=== PATIENT | male | born 1940 | race Caucasian/White ===

== ENCOUNTER 2018-11-09 13:00 | Inpatient (IN) ==
[2018-11-09] MEDS ORDERED: MIDAZOLAM HCL 1 MG/ML 2ML VIAL ONE (13:02)
[2018-11-09] MEDS ORDERED: NiCARDipine HCL INJ 2.5 MG/ML 10 ML AMP ONE (13:02)
[2018-11-09] MEDS ORDERED: fentaNYL citrate 100 MCG/2 ML VIAL ONE (13:02)
[2018-11-09] MEDS ORDERED: HEPARIN (PORCINE) 1000 UNIT/ML 10 ML (CATH LAB USE ONLY) ONE (13:02)
[2018-11-09] MEDS ORDERED: TICAGRELOR 90 MG TAB PO STA (13:05)
[2018-11-09] MEDS ORDERED: NITROGLYCERIN/D5W 100MCG/ML 20ML SYR ONE (13:05)
[2018-11-09] MEDS ORDERED: LIDOCAINE HCL 1% 20 ML VIAL ONE (13:06)
[2018-11-09] MEDS ORDERED: SODIUM CHLORIDE 0.9% 1000ML 1,000 ML IV STA (13:09)
[2018-11-09] MEDS ORDERED: fentaNYL citrate 100 MCG/2 ML VIAL IV STA (13:09)
--- NOTE | 2018-11-09 13:14 | Pre Anesthesia Assessment ---
Date of Service November 09, 2018 Pre Sedation Assessment Vital Signs Temp Pulse Resp BP Pulse Ox 11/09/18 13:02 36.4 C L 62 15 132/65 99 Cardiovascular RRR, no murmur, no edema Respiratory normal respiratory effort, lungs clear to auscultation Pre-Sedation Airway Assessment Smoking Status: Former smoker Procedure Planning Contraindications for Sedation: none Current Medications Reviewed: Yes Notes The planned sedation has been discussed with the patient. Informed Consent was obtained. I have identified the patient, determined the appropriateness of sedation and have assessed the patient immediately prior to the procedure. All medicine(s) and interventions are by my order.
[2018-11-09] MEDS ORDERED: HEPARIN SOD (PORCINE) 1000 UNIT/ML 10 ML VIAL IV ONE (13:15)
[2018-11-09 13:20] LABS: Basophils # (auto) 0.01 K/uL (0-0.2); Basophils % (auto) 0.1 %; Eosinophils # (auto) 0.13 K/uL (0-0.5); Eosinophils % (auto) 1.3 %; Hematocrit (blood only) 39.4 % (42-52); Hemoglobin 13.4 g/dL (14.0-18.0); Immature Granulocytes # (auto) 0.02 K/uL (0.00-0.02); Immature Granulocytes % (auto) 0.2 %; Lymphocytes # (auto) 1.16 K/uL (1.2-3.4); Lymphocytes % (auto) 11.7 %; Mean Corpuscular Volume 94.5 fL (80-100); Mean Platelet Volume 9.5 fL (7.4-10.4); Monocytes # (auto) 0.94 K/uL (0.11-0.59); Monocytes % (auto) 9.5 %; Neutrophils # (auto) 7.67 K/uL (1.4-6.5); Neutrophils % (auto) 77.2 %; Platelet Count 174 K/uL (130-400); RDW Coefficient of Variation 13.5 % (11.5-14.5); RDW Standard Deviation 46.8 fL (36.4-46.3); Red Blood Count 4.17 M/uL (4.7-6.1); White Blood Count 9.93 K/uL (4.8-10.8)
--- NOTE | 2018-11-09 13:21 | Cardiology Consultation ---
Date of Consultation November 09, 2018 Assessment & Plan (1) ST elevation myocardial infarction (STEMI) of inferior wall: 2. COPD 3. Transient hypotension with nitrates Patient with active ongoing chest pain and EKG showing inferior ST elevations. Plan to treat as acute NC and proceed emergently to cardiac catheterization lab. Discussed risks, benefits, alternatives of procedure with patient and he is willing to proceed. Patient to receive heparin, ticagrelor in the ED. Procedure to be performed via right radial artery. Further conditions pending findings of catheterization. History of Present Illness Reason for Consultation: Heart alert History of Present Illness Mr. Freire is a 78-year-old man with a history of COPD, GERD brought to the ED in the setting of acute onset chest pain. Patient was painting when developed acute substernal chest pain. No associated nausea, pain nonradiating. No prior similar symptoms. Pain began approximately 2 hours prior to presentation. EMS contacted and EKG in route showed inferior ST elevations and heart alert activated from the field. In route received nitroglycerin, IV fluids, fentanyl. On arrival to the ED ongoing 4-10 chest pain. EKG again showed inferior ST elevations with heart rates in the 60s. Hemodynamically stable. No other prior cardiac history. Family history: Mother with NC in her 80s Social history: and lives with . 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 Quit smoking 5 years ago. Allergies: None Allergies Allergy/AdvReac Type Severity Reaction Status Date / Time No Known Allergies Allergy Unverified 07/24/11 11:54 Home Medications Home Medications Medication Instructions Recorded Confirmed Type Fluticasone Prop/Salmeterol 1 puff INHALATION BID #0 04/10/11 History (Advair Diskus 250/50 Mcg *) Albuterol (Proair Hfa) 2 puff INHALATION QID PRN #0 10/12/15 History Amoxicillin & Pot Clavulanate 2 tab PO TID #14 tab 10/12/15 History (Augmentin 875-125 mg) MOMETASONE FUROATE-FORMOTEROL 2 puff INHALATION DAILY #0 g 10/12/15 History (DULERA 200/5 MCG) Pantoprazole (Protonix) 40 mg PO DAILY #30 tab 10/12/15 History Patient History Social History Feels Safe at Home: Yes Smoking Status: Former smoker Preferred Language: Kenyan Review of Systems Not obtained in the setting of emergent situation Physical Exam 2 Vital Signs (Past 24 Hours): Last Vital Signs Temp 36.4 C L 11/09/18 13:02 Pulse 62 11/09/18 13:02 Resp 15 11/09/18 13:02 BP 132/65 11/09/18 13:02 Pulse Ox 99 11/09/18 13:02 Physical Exam: General: Comfortable, no acute distress Eyes: Sclerae anicteric, extraocular movements intact HENT: Oropharynx clear mucous membranes moist Lungs: Clear to auscultation bilaterally, no rhonchi or wheezes Cardiac: Regular rate and rhythm, no murmurs, rubs or gallops. Vascular: 2+ radial pulses bilaterally. Diminished femoral pulses bilaterally. Nonpalpable DP/PT pulses bilaterally. Lower extreme is warm Abdomen: Soft, nontender, nondistended, positive bowel sounds. Extremities: Well perfused, no peripheral edema Skin: No rashes or lesions. Neuro: Nonfocal Psych: Alert orient x3, normal affect and mood
--- NOTE | 2018-11-09 13:22 | Cardiac Catheterization ---
Cardiac Cath Procedure Full Procedure Date November 09, 2018 Pre-Procedure Diagnosis Pre-Procedure Diagnosis: STEMI AUC Score AUC Score: 9 Post-Procedure Diagnosis Post-Procedure Diagnosis: Severe CAD Procedure(s) Performed Procedure(s) Performed: Coronary Angiography, Left Heart Cath, LV Angiography and Drug Eluting Stent Bleach Packer Robert Ahumada MD Print Production Manager(s) Rush Estimated Blood Loss Estimated Blood Loss: 10 Medication(s) Medication(s): Heparin, Integrilin, Lidocaine 1%, Nicardipine and Versed Summary of Findings Indication: STEMI/Heart Alert Access: 6 Citizen Of [place] right radial artery Catheters: [place], JR4 guide, pigtail Findings: LM -angiographically normal LAD -moderate caliber vessel, wraps around apex. 30-40% mid segment stenosis at takeoff of second diagonal, 40-50% latemid focal stenosis. Distal vessel with luminal irregularities. Small second diagonal with 60% ostial, 60-70% proximal stenosis. Circumflex -moderate caliber vessel, diffuse 50% mid segment disease across takeoff of OM1, distal segment ectatic at takeoff of OM 2. Moderate caliber OM1 30% ostial. Small OM 2 with 99% mid segment and GI II flow distally. Small distal circumflex into left PLB with 60% stenosis RCA -dominant, moderate caliber vessel, 50% mid segment stenosis, 99% hazy/ acute thrombotic stenosis in distal segment just prior to takeoff of the right PDA. Right PDA with luminal irregularities LVEDP -20 LVEF50%, akinetic base to mid inferior wall -- PCI -- Antithrombotic therapy: Heparin, Integrilin, ticagrelor Procedure: RCA cannulated with JR4 guide Web Methods Developer 50 wire passed across lesion into right PDA Distal RCA lesion predilated with 2.0 compliant balloon Received IC Integrilin x1 Dilated lesion stented with 2.5 x 15 mm [place] drug-eluting stent extending into right PDA Second drug-eluting stent 2.5 x 8 mm Cullen placed just proximal to initial stent Stents post-dilated with 2.75 noncompliant balloon IC vasodilators administered for spasm Post procedure GI 3 flow, stent well expanded with minimal residual stenosis and no apparent cardiac complications. Arterial Closure: TR band Summary: 1. Inferior STEMI/subtotally occluded, 99% distal RCA 2. Moderate to severe multi-vessel non-culprit coronary artery disease -50% mid RCA 40-50% mid LAD, small second diagonal 60-70% disease Diffuse 50% mid circumflex, 99% diffuse small second diagonal, 60% left PLB 3. Elevated intracardiac filling pressure 4. Successful PCI of distal RCA into right PDA with 2 overlapping drug-eluting stents (2.5 x 8, 2.5 x 15 mm Cullen drug-eluting stents; postdilated with 2.75 NC) . Recommendations: Admit to ICU for continued monitoring Loaded with ticagrelor 180 mg in ED Continue dual-antiplatelet therapy for at least 1 year. Trend troponins until peak, Check Echo Uptitrate beta-monica/TIM as BP allows High-dose statin Consult cardiac Rehab Medical management of non-culprit residual coronar disease. Hemodynamics Rest Ao:: 107/50/73 Final Ao: 93/42/65 LV: 105/20 Recommendations Recommendations: PCI without planned CABG Specimens Specimens: None Radiation Exposure (mGy) 3724 Contrast (mls) 115 Fluids (cc crystalloids) Fluids (cc crystalloids): 480 Drains Drains: none Anesthesia moderate Procedural Complication(s) None Disposition ICU ACC Data: Assembly Operator Cardiac Status Clinical evaluation leading to the procedure CAD Presenation: STEMI Anginal Classification: CCS IV Heart Failure: No Cardiogenic Shock within 24 Hours: No Cardiac Arrest within 24 Hours: No Imaging Studies Past 6 Months: No Stress Studies Past 6 Months: No Diagnostic Physicians Name: Robert Ahumada MD Status: Emergency Closure Device Percutaneous Entry Location: Radial Closure Device: Radial Band Recommendations: PCI without planned CABG PCI Indication: Immediate PCI for STEMI First Noted: First EKG Lesion Segment Name: distal RCA Culprit Artery: Yes Stenosis Prior to Rx (%): 99 Chronic Total Occlusion: No IVUS: No FFR: No Pre-Procedure GI Flow: 2 Previously Treated Lesion: No Lesion Complexity: Non-High/Non-C Lesion Length (mm): 15 Thrombus Present: Yes Bifurcation Lesion: Yes Guidewire Across Lesion: Stenosis Post-Procedure (%): 0 Post-Procedure GI Flow : 3 Devices(s) Deployed: Yes Yes Intraprocedure Events Significant Disection: No Perforation: No
[2018-11-09 13:26] LABS: iSTAT Hemoglobin 12.9 g/dl (14.0-18.0); iSTAT Ionized Calcium 1.09 mmol/l (1.12-1.32)
--- NOTE | 2018-11-09 13:27 | XRay Report ---
XR chest 1V portable CLINICAL HISTORY: 78 years-old Male presenting with Chest Pain. TECHNIQUE: Portable upright AP view of the chest was obtained. COMPARISON: 10/12/2015. FINDINGS: Atherosclerosis of the aortic arch. Cardiac silhouette enlarged. Pulmonary basilar prominence. Endobr onchial wall cuffing. Lung markings bilaterally with added density at the lung bases. Trace bilateral pleural effusions suggested. No pneumothorax. Degenerative changes of the thoracic spine. Upper abdo men normal. IMPRESSION: 1. Cardiomegaly with volume overload and congestive change. Developing pulmonary edema not excluded. 2. Trace bilateral pleural effusions. Electronically signed by: Stevan Sheikh M.D. 11/09/2018 1:25 PM
[2018-11-09 13:30] LABS: INR 1.1 (0.9-1.1); Partial Thromboplastin Ratio 1.1; Partial Thromboplastin Time 29.2 Seconds (21.0-31.0); Prothrombin Time 11.4 Seconds (9.0-12.0)
[2018-11-09 13:36] LABS: Albumin Level 3.2 gm/dl (3.4-5.0); BUN Creatinine Ratio 13.7 (10-20); Calcium 7.8 mg/dl (8.5-10.1); Creatinine Clr Calc Pharmacy 56.1 ml/min; Est GFR (African American) 60.7; Est GFR (Non-African American) 52.4
[2018-11-09 13:52] LABS: Albumin Globulin Ratio 0.8 (0.9-2); Bilirubin,Total 0.4 mg/dl (0.2-1); Creatine Kinase MB 7.2 ng/ml (0.5-3.6); Globulin 3.9 gm/dl (2.5-4.0); Total Protein 7.1 gm/dl (6.4-8.2); Troponin I 0.249 ng/ml (0-0.045)
[2018-11-09] MEDS ORDERED: ATROPINE SULFATE 0.1 MG/ML 10ML SYR IV ONE (14:04)
[2018-11-09] MEDS ORDERED: EPTIFIBATIDE 2 MG/ML 10 ML VIAL (CATH LAB USE ONLY) ONE (14:04)
[2018-11-09] MEDS ORDERED: ICU PROTOCOL FOR HYPERGLYCEMIA PRN (14:20)
[2018-11-09] MEDS ORDERED: ACETAMINOPHEN 325 MG TAB PO PRN (14:22)
[2018-11-09] MEDS ORDERED: ONDANSETRON INJ 2 MG/ML 2 ML VIAL IV PRN (14:22)
[2018-11-09] MEDS ORDERED: SODIUM CHLORIDE 0.9% 1000ML 1,000 ML IV SCH (14:30)
--- NOTE | 2018-11-09 17:03 | Critical Care Consultation ---
Date of Consultation November 09, 2018 Assessment & Plan (1) Acute myocardial infarction: Impression: 1. ST elevation PR, status post 2 DARWIN to RCA. 2. COPD, gold level cannot be determined. On rescue MDI only. 3. Hypertension. Plan: 1. Post PCI care per cardiology, appreciated. 2. Continue MDI as needed. 3. diuresis. 4. Monitor in the ICU. 5. DVT prophylaxis. 6. Disposition plan in a.m. Discussed with the patient and his family at the bedside in details, discussed with the staff, critical care time spent with the patient was 35 minutes. History of Present Illness Reason for Consultation: ST elevation PR Requesting Physician: Dr. Ahumada and Dr. Booth Attending Physician: Giovani Booth, DO History of Present Illness Dear Dr. Booth, dear Dr. Ahumada: Thank you for your kind referral Mr. Freire to critical care service. 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 He was not sure at the beginning and then he decided to call 911. When the patient presented to the ED, it was noted to have EKG changes in the inferior leads, the patient was taken to the [facility] immediately and underwent a PCI with 2 stents to the RCA. The patient returned to the ICU for further monitoring. In the ICU, the patient denies any chest pain, no shortness of breath, the arm pain has subsided, is bothered only with a wrist band tourniquet, he has not been having any leg pain, no fatigue, no cough no sputum production, no hemoptysis, he feels much better, return back to normal and in his own words he would like to go back to work immediately. Family history is not contributing to his current illness. The patient has history of 5 pack smoking per day for a total of 40 years. He has been using only rescue inhaler and he has been followed by his primary care physician, does not followed by a multi site leasing consultant. Allergies Allergy/AdvReac Type Severity Reaction Status Date / Time No Known Allergies Allergy Unverified 07/24/11 11:54 Home Medications Home Medications Medication Instructions Recorded Confirmed Type Unobtainable 11/09/18 11/09/18 History Patient History Medical History ST elevation myocardial infarction (STEMI) of inferior wall COPD (chronic obstructive pulmonary disease) (Chronic) Acute bronchitis (Acute) Acute sinusitis (Acute) Shortness of breath (Acute) Family History Other Family history non-contributory Social History Current Living Situation: Spouse Other Information That Helps Us Care for You: No Feels Safe at Home: Yes Safety Concerns: Feels Safe At This Time Smoking Status: Former smoker Hx Alcohol Use: No Hx Substance Use: No Beliefs That Will Affect Care: None Preferred Language: Filipino Communication Ability: Effective Ambulette Driver Required: No Review of Systems 14 systems has been reviewed apart from the above, there were unremarkable. Physical Exam 2 Vital Signs (Past 24 Hours): Last Vital Signs Temp 36.5 C 11/09/18 14:30 Pulse 78 11/09/18 15:45 Resp 20 11/09/18 15:45 BP 136/81 11/09/18 15:45 Pulse Ox 94 11/09/18 14:46 Physical Exam: Elderly gentleman, does not appear to be in any respiratory distress, vital signs are stable, no JVD, no oral lesions, S1-S2 regular rate and rhythm, lungs with distant breath sounds, abdomen is benign, no edema, neurologically is intact, no skin rash. Results & Data Laboratory Results Labs were reviewed which showed acceptable CBC, BMP, and normal LFTs but elevated troponin. Diagnostic Findings Chest x-ray showed cardiomegaly, pulmonary vascular congestion, small pleural effusion. Reviewed personally. CAT scan of the chest showed COPD changes, metal object in the left upper lobe, this CAT scan was done in 2015. _ (1) Acute myocardial infarction Involved coronary artery: Myocardial infarction type:
[2018-11-09] MEDS ORDERED: ALBUTEROL HFA 8 GM INHALER INH PRN (17:11)
--- NOTE | 2018-11-09 20:04 | Emergency Department Note ---
Entered by Cinthia Huertas acting as a scribe for David Dorsey MD ED Provider Note CHIEF COMPLAINT: Heart alert HISTORY OF PRESENT ILLNESS: The patient is a 78 year old male who presents to the Emergency Room with complaints of chest pain that started a couple of hours ago. 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 He notes he is having chest pain on the left side. The patient reports his mother had a heart attack when she was 85. He rates his pain as 4/10. Per EMS: The patient has history of COPD. EKG from the ambulance shows sinus rhythm at 65 beats per minutes with PVCs and 1st degree AV block, inferior ST elevation with lateral T-wave inversion and septal T-wave inversion. When compared to October 12, 2015, ST elevation and T-wave changes are new. Pt denies LOC, headache, fevers, chills, diaphoresis, visual changes, neck pain , breathing difficulties, nausea, vomiting, abdominal pain, back pain, melena, hematochezia, urinary symptoms, numbness, weakness, lymphadenopathy, rash, or other complaints. REVIEW OF SYSTEMS: See HPI for pertinent positives and negatives. A total of ten systems were reviewed and were otherwise negative. PMHx/PSHx: Acute bronchitis COPD Acute sinusitis Shortness of breath SOCIAL HISTORY: Patient lives at home. PHYSICAL EXAM: GENERAL: Awake, alert, uncomfortable-appearing, in no distress HENT: Normocephalic, atraumatic. Oropharynx unremarkable. EYES: Normal conjunctiva. Sclera non-icteric. NECK: Inspection normal. Non-tender. Supple. No nuchal rigidity. FROM. No masses. RESPIRATORY: Clear to auscultation. No wheezes. No rales. Normal respiratory effort. CARDIAC: Normal rate. Normal rhythm. No murmurs. No rubs. Extremities warm and well perfused. Pulses equal. No JVD. GI: Soft, non-distended. No tenderness to palpation. No rebound or guarding. No masses. RECTAL: Deferred. MUSCULOSKELETAL: Atraumatic. Chest examination reveals no tenderness. The back is symmetrical on inspection without obvious abnormality. There is no CVA tenderness to palpation. No joint edema. LOWER EXTREMITIES: Calves are equal size bilaterally and non-tender. 2+ edema. No discoloration. NEURO: Normal sensorium. No sensory or motor deficits noted. SKIN: No rash or jaundice noted. EMERGENCY DEPARTMENT COURSE: 1300: Past medical records reviewed. The patient was evaluated in room B1, and a complete history and physical examination were performed. Cardiology present. 1310: i-STAT shows slight anemia and normal renal function MEDICAL DECISION MAKING: Prior records/ancillary studies reviewed. Nursing notes reviewed and agree them. Additional history obtained from EMS crew. The patient's history was concerning for chest pain. Differential diagnosis: Etiologies such as cardiac ischemia, aortic dissection, pulmonary embolism, esophageal rupture, pneumonia, pneumothorax, musculoskeletal, infections, gastrointestinal, as well as others were entertained. Physical examination: Patient was acutely ill. Physical exam is as above. ER treatment provided: Aspirin and nitroglycerin given by EMS IVP Fentanyl On reassessment the patient felt better. Heparin and Brilinta given by cardiology Diagnostic interpretation: The electrocardiogram was significant for an acute myocardial infarction. The labs revealed normal chemistries by i-STAT. Elevated troponin noted by point of care. The following imaging studies were performed and reviewed by me: Chest x-ray as above. No evidence of widened mediastinum. The patient is having an acute myocardial infarction. The heart alert was initiated. Consultation: A consultation was placed with Dr. Ahumada of cardiology. He promptly arrived in the ER and evaluated the patient and agreed with the assessment of an AMI. We were both present in the resuscitation room when the patient arrived via EMS. Treatment was initiated in the ER. The patient was taken emergently to the catheterization laboratory for cardiac intervention. IMPRESSION: Acute myocardial infarction Elevated troponin PLAN: Admit CRITICAL CARE: I have personally spent greater than 30 minutes of critical care time in the direct management of this patient. This includes bedside care, interpretation of diagnostic studies, and testing, discussion with consultants, patient, and family members, and other required patient management activities. This 30 minutes is in excess of all separately billable procedures. The scribe's documentation has been prepared under my direction and personally reviewed by me in its entirety. I confirm that the note above accurately reflects all work, treatment, procedures, and medical decision making performed by me. 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 COPD (chronic obstructive pulmonary disease) (Chronic) Acute bronchitis (Acute) Acute sinusitis (Acute) Shortness of breath (Acute) Family History Other Family history non-contributory Social History Current Living Situation: Spouse Other Information That Helps Us Care for You: No Feels Safe at Home: Yes Safety Concerns: Feels Safe At This Time Smoking Status: Former smoker Hx Alcohol Use: No Hx Substance Use: No Beliefs That Will Affect Care: None Preferred Language: Brazilian Communication Ability: Effective Swatch Folder Required: No Results & Data Vital Signs Vital Signs - 24 hr 11/09/18 13:02 11/09/18 13:06 11/09/18 13:15 Temperature 36.4 C L Temperature Source Oral Sepsis Recent Fever Within 48 Hours No Sepsis New/Unexplained Change in Mental Status No Sepsis Action Taken by Nursing No Action Required Pulse Rate 62 68 69 Pulse Rate from SpO2 Sensor 68 66 Pulse Rhythm Irregular Respiratory Rate 15 14 18 Respiratory Effort / Characteristics Non-Labored Respiratory Depth Normal Respiratory Pattern Regular Blood Pressure 132/65 132/65 Blood Pressure [Left Arm] Blood Pressure Mean 87 87 Blood Pressure Position Lying Pulse Oximetry 99 96 94 Oxygen Delivery Method Nasal Cannula Nasal Cannula Oxygen Flow Rate 4 11/09/18 14:05 11/09/18 14:29 11/09/18 14:30 Temperature 36.5 C Temperature Source Sepsis Recent Fever Within 48 Hours Sepsis New/Unexplained Change in Mental Status Sepsis Action Taken by Nursing Pulse Rate 78 82 70 Pulse Rate from SpO2 Sensor Pulse Rhythm Respiratory Rate 16 22 17 Respiratory Effort / Characteristics Non-Labored Spontaneous Respiratory Depth Normal Respiratory Pattern Regular Blood Pressure 123/54 L Blood Pressure [Left Arm] 117/58 L Blood Pressure Mean 77 Blood Pressure Position Pulse Oximetry 98 94 Oxygen Delivery Method Room Air Oxygen Flow Rate 11/09/18 14:31 11/09/18 14:45 11/09/18 14:46 Temperature Temperature Source Sepsis Recent Fever Within 48 Hours Sepsis New/Unexplained Change in Mental Status Sepsis Action Taken by Nursing Pulse Rate 76 66 65 Pulse Rate from SpO2 Sensor Pulse Rhythm Respiratory Rate 18 24 20 Respiratory Effort / Characteristics Respiratory Depth Respiratory Pattern Blood Pressure 117/65 Blood Pressure [Left Arm] Blood Pressure Mean 82 Blood Pressure Position Pulse Oximetry 94 Oxygen Delivery Method Oxygen Flow Rate 11/09/18 14:47 11/09/18 15:00 11/09/18 15:15 Temperature Temperature Source Sepsis Recent Fever Within 48 Hours Sepsis New/Unexplained Change in Mental Status Sepsis Action Taken by Nursing Pulse Rate 66 79 86 Pulse Rate from SpO2 Sensor Pulse Rhythm Respiratory Rate 20 22 17 Respiratory Effort / Characteristics Respiratory Depth Respiratory Pattern Blood Pressure 123/76 138/71 Blood Pressure [Left Arm] Blood Pressure Mean 91 93 Blood Pressure Position Pulse Oximetry Oxygen Delivery Method Oxygen Flow Rate 11/09/18 15:30 11/09/18 15:31 11/09/18 15:45 Temperature Temperature Source Sepsis Recent Fever Within 48 Hours Sepsis New/Unexplained Change in Mental Status Sepsis Action Taken by Nursing Pulse Rate 75 75 78 Pulse Rate from SpO2 Sensor Pulse Rhythm Respiratory Rate 13 17 20 Respiratory Effort / Characteristics Respiratory Depth Respiratory Pattern Blood Pressure 127/60 136/81 Blood Pressure [Left Arm] Blood Pressure Mean 82 99 Blood Pressure Position Pulse Oximetry Oxygen Delivery Method Oxygen Flow Rate 11/09/18 16:00 11/09/18 16:01 11/09/18 16:16 Temperature Temperature Source Sepsis Recent Fever Within 48 Hours Sepsis New/Unexplained Change in Mental Status Sepsis Action Taken by Nursing Pulse Rate 76 77 74 Pulse Rate from SpO2 Sensor 79 76 74 Pulse Rhythm Respiratory Rate 18 21 21 Respiratory Effort / Characteristics Respiratory Depth Respiratory Pattern Blood Pressure 102/73 135/79 Blood Pressure [Left Arm] Blood Pressure Mean 82 97 Blood Pressure Position Pulse Oximetry 95 97 95 Oxygen Delivery Method Oxygen Flow Rate 11/09/18 16:30 11/09/18 16:46 11/09/18 17:00 Temperature 36.6 C Temperature Source Sepsis Recent Fever Within 48 Hours Sepsis New/Unexplained Change in Mental Status Sepsis Action Taken by Nursing Pulse Rate 76 75 79 Pulse Rate from SpO2 Sensor 77 71 80 Pulse Rhythm Respiratory Rate 22 20 17 Respiratory Effort / Characteristics Respiratory Depth Respiratory Pattern Blood Pressure 149/90 H 138/78 Blood Pressure [Left Arm] Blood Pressure Mean 109 98 Blood Pressure Position Pulse Oximetry 96 93 95 Oxygen Delivery Method Oxygen Flow Rate 11/09/18 17:01 11/09/18 17:31 11/09/18 18:00 Temperature Temperature Source Sepsis Recent Fever Within 48 Hours Sepsis New/Unexplained Change in Mental Status Sepsis Action Taken by Nursing Pulse Rate 82 78 70 Pulse Rate from SpO2 Sensor 81 77 Pulse Rhythm Respiratory Rate 24 23 23 Respiratory Effort / Characteristics Respiratory Depth Respiratory Pattern Blood Pressure 144/68 H 120/57 L Blood Pressure [Left Arm] Blood Pressure Mean 93 78 Blood Pressure Position Pulse Oximetry 94 94 Oxygen Delivery Method Oxygen Flow Rate 11/09/18 18:01 Temperature Temperature Source Sepsis Recent Fever Within 48 Hours Sepsis New/Unexplained Change in Mental Status Sepsis Action Taken by Nursing Pulse Rate 76 Pulse Rate from SpO2 Sensor Pulse Rhythm Respiratory Rate 21 Respiratory Effort / Characteristics Respiratory Depth Respiratory Pattern Blood Pressure 146/67 H Blood Pressure [Left Arm] Blood Pressure Mean 93 Blood Pressure Position Pulse Oximetry Oxygen Delivery Method Oxygen Flow Rate Home Medications Current Medication List: was personally reviewed by me Laboratory Data Attestation: I reviewed the patient's lab results. Result diagrams: 11/09/18 13:10 11/09/18 13:10 Lab Results 11/09/18 11/09/18 11/09/18 Range/Units 13:10 13:10 13:10 WBC 9.93 (4.8-10.8) K/uL RBC 4.17 L (4.7-6.1) M/uL Hgb 13.4 L (14.0-18.0) g/dL POC Hgb (14.0-18.0) g/dl Hct 39.4 L (42-52) % POC Hct (42-52) % MCV 94.5 (80-100) fL MCH 32.1 (25-34) pg MCHC 34.0 (32-36) g/dL RDW Std Deviation 46.8 H (36.4-46.3) fL RDW Coeff of Mario 13.5 (11.5-14.5) % Plt Count 174 (130-400) K/uL MPV 9.5 (7.4-10.4) fL Immature Gran % (Auto) 0.2 % Neut % (Auto) 77.2 % Lymph % (Auto) 11.7 % [place] % (Auto) 9.5 % Eos % (Auto) 1.3 % Baso % (Auto) 0.1 % Immature Gran # (Auto) 0.02 (0.00-0.02) K/uL Neut # (Auto) 7.67 H (1.4-6.5) K/uL Lymph # (Auto) 1.16 L (1.2-3.4) K/uL [place] # (Auto) 0.94 H (0.11-0.59) K/uL Eos # (Auto) 0.13 (0-0.5) K/uL Baso # (Auto) 0.01 (0-0.2) K/uL PT 11.4 (9.0-12.0) Seconds INR 1.1 (0.9-1.1) APTT 29.2 (21.0-31.0) Seconds PTT Ratio 1.1 Activ Coag Time Kaolin (94-140) SECONDS POC Sodium (135-144) mEq/L Sodium 138 (136-145) mmol/L POC Potassium (3.3-5.0) mEq/L Potassium 4.0 (3.5-5.1) mmol/L POC Chloride (101-112) mEq/L Chloride 106 (98-107) mmol/L Carbon Dioxide 23 (21-32) mmol/L POC Total CO2 (24-31) mEq/l Anion Gap 9.0 (3-11) POC Anion Gap (16-25) mmol/L POC BUN (7-18) mg/dl BUN 18 (7-18) mg/dl Creatinine 1.29 (0.6-1.4) mg/dl POC Creatinine (0.6-1.3) mg/dl Est Cr Clr Drug Dosing 56.1 ml/min Est GFR ( Amer) 60.7 Est GFR (Non-Af Amer) 52.4 BUN/Creatinine Ratio 13.7 (10-20) Glucose 117 H (70-99) mg/dl POC Glucose (other) (70-99) mg/dl Calcium 7.8 L (8.5-10.1) mg/dl POC Ioniz Calcium [place] (1.12-1.32) mmol/l Total Bilirubin 0.4 (0.2-1) mg/dl AST 21 (15-37) U/L ALT 23 (12-78) U/L Alkaline Phosphatase 100 (45-117) U/L Total Creatine Kinase 176 (39-308) U/L CK-MB (CK-2) 7.2 H (0.5-3.6) ng/ml CK/CKMB % Calc 4.1 H (0-3.0) POC Troponin I (0-0.045) ng/ml Troponin I 0.249 H* (0-0.045) ng/ml Total Protein 7.1 (6.4-8.2) gm/dl Albumin 3.2 L (3.4-5.0) gm/dl Globulin 3.9 (2.5-4.0) gm/dl Albumin/Globulin Ratio 0.8 L (0.9-2) Lipase 108 (73-393) U/L Nasal Screen MRSA (PCR) (Negative) 11/09/18 11/09/18 11/09/18 Range/Units 13:12 13:18 13:43 WBC (4.8-10.8) K/uL RBC (4.7-6.1) M/uL Hgb (14.0-18.0) g/dL POC Hgb 12.9 L (14.0-18.0) g/dl Hct (42-52) % POC Hct 38 L (42-52) % MCV (80-100) fL MCH (25-34) pg MCHC (32-36) g/dL RDW Std Deviation (36.4-46.3) fL RDW Coeff of Mario (11.5-14.5) % Plt Count (130-400) K/uL MPV (7.4-10.4) fL Immature Gran % (Auto) % Neut % (Auto) % Lymph % (Auto) % [place] % (Auto) % Eos % (Auto) % Baso % (Auto) % Immature Gran # (Auto) (0.00-0.02) K/uL Neut # (Auto) (1.4-6.5) K/uL Lymph # (Auto) (1.2-3.4) K/uL [place] # (Auto) (0.11-0.59) K/uL Eos # (Auto) (0-0.5) K/uL Baso # (Auto) (0-0.2) K/uL PT (9.0-12.0) Seconds INR (0.9-1.1) APTT (21.0-31.0) Seconds PTT Ratio Activ Coag Time Kaolin 241 H (94-140) SECONDS POC Sodium 140 (135-144) mEq/L Sodium (136-145) mmol/L POC Potassium 4.0 (3.3-5.0) mEq/L Potassium (3.5-5.1) mmol/L POC Chloride 103 (101-112) mEq/L Chloride (98-107) mmol/L Carbon Dioxide (21-32) mmol/L POC Total CO2 23 L (24-31) mEq/l Anion Gap (3-11) POC Anion Gap 20.0 (16-25) mmol/L POC BUN 18 (7-18) mg/dl BUN (7-18) mg/dl Creatinine (0.6-1.4) mg/dl POC Creatinine 1.2 (0.6-1.3) mg/dl Est Cr Clr Drug Dosing ml/min Est GFR ( Amer) Est GFR (Non-Af Amer) BUN/Creatinine Ratio (10-20) Glucose (70-99) mg/dl POC Glucose (other) 119 H (70-99) mg/dl Calcium (8.5-10.1) mg/dl POC Ioniz Calcium [place] 1.09 L (1.12-1.32) mmol/l Total Bilirubin (0.2-1) mg/dl AST (15-37) U/L ALT (12-78) U/L Alkaline Phosphatase (45-117) U/L Total Creatine Kinase (39-308) U/L CK-MB (CK-2) (0.5-3.6) ng/ml CK/CKMB % Calc (0-3.0) POC Troponin I 0.21 H (0-0.045) ng/ml Troponin I (0-0.045) ng/ml Total Protein (6.4-8.2) gm/dl Albumin (3.4-5.0) gm/dl Globulin (2.5-4.0) gm/dl Albumin/Globulin Ratio (0.9-2) Lipase (73-393) U/L Nasal Screen MRSA (PCR) (Negative) 11/09/18 Range/Units Unknown WBC (4.8-10.8) K/uL RBC (4.7-6.1) M/uL Hgb (14.0-18.0) g/dL POC Hgb (14.0-18.0) g/dl Hct (42-52) % POC Hct (42-52) % MCV (80-100) fL MCH (25-34) pg MCHC (32-36) g/dL RDW Std Deviation (36.4-46.3) fL RDW Coeff of Mario (11.5-14.5) % Plt Count (130-400) K/uL MPV (7.4-10.4) fL Immature Gran % (Auto) % Neut % (Auto) % Lymph % (Auto) % [place] % (Auto) % Eos % (Auto) % Baso % (Auto) % Immature Gran # (Auto) (0.00-0.02) K/uL Neut # (Auto) (1.4-6.5) K/uL Lymph # (Auto) (1.2-3.4) K/uL [place] # (Auto) (0.11-0.59) K/uL Eos # (Auto) (0-0.5) K/uL Baso # (Auto) (0-0.2) K/uL PT (9.0-12.0) Seconds INR (0.9-1.1) APTT (21.0-31.0) Seconds PTT Ratio Activ Coag Time Kaolin (94-140) SECONDS POC Sodium (135-144) mEq/L Sodium (136-145) mmol/L POC Potassium (3.3-5.0) mEq/L Potassium (3.5-5.1) mmol/L POC Chloride (101-112) mEq/L Chloride (98-107) mmol/L Carbon Dioxide (21-32) mmol/L POC Total CO2 (24-31) mEq/l Anion Gap (3-11) POC Anion Gap (16-25) mmol/L POC BUN (7-18) mg/dl BUN (7-18) mg/dl Creatinine (0.6-1.4) mg/dl POC Creatinine (0.6-1.3) mg/dl Est Cr Clr Drug Dosing ml/min Est GFR ( Amer) Est GFR (Non-Af Amer) BUN/Creatinine Ratio (10-20) Glucose (70-99) mg/dl POC Glucose (other) (70-99) mg/dl Calcium (8.5-10.1) mg/dl POC Ioniz Calcium [place] (1.12-1.32) mmol/l Total Bilirubin (0.2-1) mg/dl AST (15-37) U/L ALT (12-78) U/L Alkaline Phosphatase (45-117) U/L Total Creatine Kinase (39-308) U/L CK-MB (CK-2) (0.5-3.6) ng/ml CK/CKMB % Calc (0-3.0) POC Troponin I (0-0.045) ng/ml Troponin I (0-0.045) ng/ml Total Protein (6.4-8.2) gm/dl Albumin (3.4-5.0) gm/dl Globulin (2.5-4.0) gm/dl Albumin/Globulin Ratio (0.9-2) Lipase (73-393) U/L Nasal Screen MRSA (PCR) Negative (Negative) Administered Medications Discontinued Medications Atropine Sulfate (Atropine Sulfate) Confirm Administered Dose 1 mg IV .STK-MED ONE Stop: 11/09/18 14:05 Last Admin: 11/09/18 14:14 Dose: 0.5 mg Eptifibatide (Integrilin ([employer] Use Only)) Confirm Administered Dose 20 mg .ROUTE .STK-MED ONE Stop: 11/09/18 14:05 Last Admin: 11/09/18 14:14 Dose: 10.2 mg Fentanyl Citrate (Fentanyl Citrate) Confirm Administered Dose 100 mcg .ROUTE .STK-MED ONE Stop: 11/09/18 13:03 Last Increment: 11/09/18 13:12 Dose: 50 mcg Fentanyl Citrate (Fentanyl Citrate) 50 mcg IV NOW STA Stop: 11/09/18 13:10 Last Admin: 11/09/18 14:14 Dose: 50 mcg Heparin Sodium (Porcine) (Heparin Iv Bolus (Contractor [place] Use Only)) Confirm Administered Dose 10,000 units .ROUTE .STK-MED ONE Stop: 11/09/18 13:03 Last Admin: 11/09/18 14:12 Dose: 5,000 units Heparin Sodium (Porcine) (Heparin Iv Bolus) 5,000 units IV NOW ONE Stop: 11/09/18 13:16 Last Admin: 11/09/18 13:12 Dose: 5,000 units Heparin Sodium/Sodium Chloride (Heparin Sod/Nss 2 Units/Ml) Confirm Administered Dose 3,000 units IV .STK-MED ONE Stop: 11/09/18 13:04 Last Admin: 11/09/18 14:13 Dose: 3,000 units Sodium Chloride (Nss 1000ml) 1,000 mls @ 125 mls/hr IV .Q8H STA Stop: 11/09/18 21:08 Last Admin: 11/09/18 14:57 Dose: Not Given Sodium Chloride (Nss 1000ml) 1,000 mls @ 100 mls/hr IV .Q10H MARCELINO Stop: 11/09/18 19:29 Last Infusion: 11/09/18 18:14 Dose: 0 mls/hr Admin: 11/09/18 14:56 Dose: 100 mls/hr Lidocaine HCl (Xylocaine 1% (Local)) Confirm Administered Dose 20 ml .ROUTE .STK -MED ONE Stop: 11/09/18 13:07 Last Admin: 11/09/18 14:13 Dose: 20 ml Midazolam HCl (Versed) Confirm Administered Dose 2 mg .ROUTE .STK-MED ONE Stop: 11/09/18 13:03 Last Increment: 11/09/18 14:12 Dose: 1 mg Nicardipine HCl (Cardene) Confirm Administered Dose 25 mg .ROUTE .STK-MED ONE Stop: 11/09/18 13:03 Last Admin: 11/09/18 14:12 Dose: 25 mg Nitroglycerin/Dextrose (Nitroglycerin/D5w 100 Mcg/Ml 20ml Syringe) Confirm Administered Dose 2,000 mcg .ROUTE .STK-MED ONE Stop: 11/09/18 13:06 Last Admin: 11/09/18 14:13 Dose: 2,000 mcg Ticagrelor (Brilinta) 180 mg PO NOW STA Stop: 11/09/18 13:06 Last Admin: 11/09/18 13:12 Dose: 180 mg Imaging Data Radiologist's Impression: Radiology results as stated below per my review and the radiologist's interpretation: XR chest 1V portable CLINICAL HISTORY: 78 years-old Male presenting with Chest Pain. TECHNIQUE: Portable upright AP view of the chest was obtained. COMPARISON: 10/12/2015. FINDINGS: Atherosclerosis of the aortic arch. Cardiac silhouette enlarged. Pulmonary basilar prominence. Endobronchial wall cuffing. Lung markings bilaterally with added density at the lung bases. Trace bilateral pleural effusions suggested. No pneumothorax. Degenerative changes of the thoracic spine. Upper abdomen normal. IMPRESSION: 1. Cardiomegaly with volume overload and congestive change. Developing pulmonary edema not excluded. 2. Trace bilateral pleural effusions. Electronically signed by: Stevan Sheikh M.D. 11/09/2018 1:25 PM ECG Data Attestation: I personally reviewed and interpreted this ECG as follows: Indication: chest pain Rate (beats per minute): 63 Rhythm: sinus rhythm Findings: + 1st degree AV block, + T-wave inversion (Lateral and septal) and + ST elevation (Inferior) Comparison ECG Date: from (October 12, 2015) Change: the following changes noted (ST elevation and T-wave changes are new) Blood Pressure Blood Pressure Findings: Normal blood pressure Blood Pressure Disposition: did not require urgent referral Discharge Plan Visit Data *Final* Discharge Date/Time: 11/09/18 13:31 Chief Complaint: Heart Alert ED Provider: David Dorsey Discharge Problem: Acute myocardial infarction, Elevated troponin Patient Disposition: Admitted As Inpatient Discharge Instructions Interventions: ED Discharge Assessment Last Done: 11/09/18 13:16 The scribe's documentation has been prepared under my direction and personally reviewed by me in its entirety. I confirm that the note above accurately reflects all work, treatment, procedures, and medical decision making performed by me.
[2018-11-09] MEDS ORDERED: INFLUENZA ADMINISTRATION CHARGE ONE (21:15)
[2018-11-09] MEDS ORDERED: PNEUMOCOCCAL ADMINISTRATION CHARGE ONE (21:15)
[2018-11-09] MEDS ORDERED: INFLUENZA VACCINE HIGH DOSE 65+ 0.5 ML SYR IM ONE (21:15)
[2018-11-09] MEDS ORDERED: PNEUMOCOCCAL POLYSACCHARIDES 25 MCG/0.5 ML VIAL/SYR IM ONE (21:15)
[2018-11-09] MEDS: METOPROLOL TARTRATE 25 MG TAB PO SCH (21:51)
[2018-11-10] MEDS: TICAGRELOR 90 MG TAB PO SCH ×3 (00:30→20:36)
[2018-11-10 02:43] LABS: Basophils # (auto) 0.01 K/uL (0-0.2); Basophils % (auto) 0.1 %; Eosinophils # (auto) 0.13 K/uL (0-0.5); Eosinophils % (auto) 1.4 %; Hematocrit (blood only) 41.9 % (42-52); Hemoglobin 14.1 g/dL (14.0-18.0); Immature Granulocytes # (auto) 0.02 K/uL (0.00-0.02); Immature Granulocytes % (auto) 0.2 %; Lymphocytes # (auto) 1.65 K/uL (1.2-3.4); Lymphocytes % (auto) 17.2 %; Mean Corpuscular Hgb Conc 33.7 g/dL (32-36); Mean Corpuscular Volume 93.7 fL (80-100); Mean Platelet Volume 9.8 fL (7.4-10.4); Monocytes # (auto) 1.04 K/uL (0.11-0.59); Monocytes % (auto) 10.9 %; Neutrophils # (auto) 6.73 K/uL (1.4-6.5); Neutrophils % (auto) 70.2 %; Platelet Count 184 K/uL (130-400); RDW Coefficient of Variation 13.7 % (11.5-14.5); RDW Standard Deviation 46.8 fL (36.4-46.3); Red Blood Count 4.47 M/uL (4.7-6.1); White Blood Count 9.58 K/uL (4.8-10.8)
[2018-11-10 03:00] LABS: BUN Creatinine Ratio 14.3 (10-20); Calcium 8.3 mg/dl (8.5-10.1); Creatinine Clr Calc Pharmacy 58.9 ml/min; Est GFR (African American) 64.3; Est GFR (Non-African American) 55.5
[2018-11-10 03:10] LABS: Troponin I 26.1 ng/ml (0-0.045)
[2018-11-10 04:14] LABS: Magnesium 2.1 mg/dl (1.8-2.4); Phosphorus 2.4 mg/dl (2.5-4.9)
[2018-11-10 06:42] LABS: Estimated Average Glucose 114 mg/dl
[2018-11-10] MEDS ORDERED: PERFLUTREN LIPID MICROSPHERE (DEFINITY) IV ONE (07:31)
--- NOTE | 2018-11-10 08:03 | Critical Care Progress Note ---
Date of Service November 10, 2018 Assessment & Plan (1) Acute myocardial infarction: Reason Critically Ill: Inferior STEMI Neuro - [facility] ICU: Negative Cardiac - Inferior STEMI-status post DARWIN x2 to RCA -Continue metoprolol lisinopril, aspirin, Brilinta, Lipitor -Echo EF 55-60% -Monitor on telemetry Hypertension-metoprolol and lisinopril Respiratory - COPD-PRN albuterol RENAL/LYTES - Monitor with BMPs and replete as indicated - Voiding without issue HEME - H&H stable, monitor with CBCs LINES/IV ACCESS - Peripheral IVs DVT PROPHYLAXIS - Heparin subcu Supervising Physician Co-Signing Physician Notes Patient remains hemodynamically stable, on high-dose statin therapy. Currently asymptomatic chest pain-free. Stable for downgrade out of the ICU. Subjective Patient is a 78-year-old male with past medical history myocardial infarction, COPD, smoker who quit 5 years ago who presented to the ED via EMS after experiencing chest pain. EKG showed inferior ST elevation, heart code initiated. Patient taken to the Independent Living Instructor, PCI successfully placed with DARWIN in RCA x2. Patient currently alert and oriented, hemodynamically stable on room air. Denies chest pain, shortness of breath, palpitations. We will likely transfer to telemetry unit for further monitoring. Review of Systems All systems reviewed & are unremarkable except as noted in HPI & below Physical Exam 2 Vital Signs (Past 24 Hours): Last Vital Signs Temp 36.6 C 11/10/18 04:01 Pulse 62 11/10/18 06:00 Resp 21 11/10/18 06:00 BP 129/69 11/10/18 06:00 Pulse Ox 93 11/10/18 06:00 Constitutional: WD/WN, vitals as above No acute distress Eyes: PERRLA Respiratory: normal respiratory effort, lungs clear to auscultation Cardiovascular: RRR, no murmur, no edema Rate/Rhythm: regular rate and regular rhythm Heart Sounds: normal S1 and normal S2 Vessels: no JVD Extremities: normal capillary refill; no edema Gastrointestinal (Abdomen): normal bowel sounds, soft, nontender, no hepatosplenomegaly Skin: no rashes, warm and dry Neurologic: PERRL, EOMI, accommodation nl, no face palsy, no dysarthria Genitourinary: Voiding without difficulty Results & Data Laboratory Results Laboratory Results - last 24 hr 11/09/18 11/09/18 11/09/18 20:11 20:32 Unknown WBC RBC Hgb Hct MCV MCH MCHC RDW Std Deviation RDW Coeff of Mario Plt Count MPV Immature Gran % (Auto) Neut % (Auto) Lymph % (Auto) Ware % (Auto) Eos % (Auto) Baso % (Auto) Immature Gran # (Auto) Neut # (Auto) Lymph # (Auto) Ware # (Auto) Eos # (Auto) Baso # (Auto) Sodium Potassium Chloride Carbon Dioxide Anion Gap BUN Creatinine Est Cr Clr Drug Dosing Est GFR ( Amer) Est GFR (Non-Af Amer) BUN/Creatinine Ratio Glucose POC Glucose 96 Estimat Average Glucose Hemoglobin A1c Calcium Phosphorus Magnesium Troponin I 30.000 H* Triglycerides Cholesterol LDL Cholesterol, Calc VLDL Cholesterol, Calc HDL Cholesterol Cholesterol/HDL Ratio Nasal Screen MRSA (PCR) Negative 11/10/18 11/10/18 11/10/18 02:35 02:35 02:35 WBC 9.58 RBC 4.47 L Hgb 14.1 Hct 41.9 L MCV 93.7 MCH 31.5 MCHC 33.7 RDW Std Deviation 46.8 H RDW Coeff of Mario 13.7 Plt Count 184 MPV 9.8 Immature Gran % (Auto) 0.2 Neut % (Auto) 70.2 Lymph % (Auto) 17.2 Ware % (Auto) 10.9 Eos % (Auto) 1.4 Baso % (Auto) 0.1 Immature Gran # (Auto) 0.02 Neut # (Auto) 6.73 H Lymph # (Auto) 1.65 Ware # (Auto) 1.04 H Eos # (Auto) 0.13 Baso # (Auto) 0.01 Sodium 138 Potassium 4.0 Chloride 109 H Carbon Dioxide 21 Anion Gap 8.0 BUN 18 Creatinine 1.23 Est Cr Clr Drug Dosing 58.9 Est GFR ( Amer) 64.3 Est GFR (Non-Af Amer) 55.5 BUN/Creatinine Ratio 14.3 Glucose 99 POC Glucose Estimat Average Glucose 114 Hemoglobin A1c 5.6 Calcium 8.3 L Phosphorus 2.4 L Magnesium 2.1 Troponin I 26.100 H* Triglycerides 122 Cholesterol 167 LDL Cholesterol, Calc 112 VLDL Cholesterol, Calc 24 HDL Cholesterol 31 Cholesterol/HDL Ratio 5 Nasal Screen MRSA (PCR) 11/10/18 06:32 WBC RBC Hgb Hct MCV MCH MCHC RDW Std Deviation RDW Coeff of Mario Plt Count MPV Immature Gran % (Auto) Neut % (Auto) Lymph % (Auto) Ware % (Auto) Eos % (Auto) Baso % (Auto) Immature Gran # (Auto) Neut # (Auto) Lymph # (Auto) Ware # (Auto) Eos # (Auto) Baso # (Auto) Sodium Potassium Chloride Carbon Dioxide Anion Gap BUN Creatinine Est Cr Clr Drug Dosing Est GFR ( Amer) Est GFR (Non-Af Amer) BUN/Creatinine Ratio Glucose POC Glucose 103 H Estimat Average Glucose Hemoglobin A1c Calcium Phosphorus Magnesium Troponin I Triglycerides Cholesterol LDL Cholesterol, Calc VLDL Cholesterol, Calc HDL Cholesterol Cholesterol/HDL Ratio Nasal Screen MRSA (PCR) Medications Administered Home Medications Unobtainable 11/09/18 [History Confirmed 11/09/18] Active Medications Acetaminophen (Tylenol) 650 mg PO Q4H PRN PRN Reason: Mild Pain (scale 1-3) Stop: 12/09/18 14:21 Albuterol (Ventolin Hfa) 2 puffs INH Q6H PRN PRN Reason: wheezing Stop: 12/09/18 17:14 Last Admin: 11/10/18 00:28 Dose: 2 puffs Aspirin ([facility]) [facility] [place] Stop: 12/10/18 08:59 Last Admin: 11/10/18 09:00 Dose: 81 mg Atorvastatin Calcium (Lipitor) 80 mg PO QAM [facility] Stop: 12/10/18 08:59 Last Admin: 11/10/18 08:59 Dose: 80 mg Lisinopril (Zestril) 5 mg PO QAM [facility] Stop: 12/10/18 08:59 Last Admin: 11/10/18 09:00 Dose: 5 mg Metoprolol Tartrate (Lopressor) 12.5 mg PO BID [facility] Stop: 12/09/18 20:59 Last Admin: 11/10/18 09:00 Dose: 12.5 mg Miscellaneous (Icu Protocol For Hyperglycemia) 1 ea N/A PRN PRN; Protocol PRN Reason: Hyperglycemia Protocol Stop: 11/11/18 14:19 Ondansetron HCl (Zofran) 4 mg IV Q6H PRN PRN Reason: Nausea And Vomiting Stop: 12/09/18 14:21 Ticagrelor (Brilinta) 90 mg PO BID [facility] Stop: 12/10/18 00:59 Last Admin: 11/10/18 12:01 Dose: 90 mg _ (1) Acute myocardial infarction Involved coronary artery: Myocardial infarction type:
[2018-11-10] MEDS: ATORVASTATIN 40 MG TAB PO SCH (08:59)
[2018-11-10] MEDS: METOPROLOL TARTRATE 25 MG TAB PO SCH ×2 (09:00→20:34)
[2018-11-10] MEDS: ASPIRIN 81 MG ECTAB PO SCH (09:00)
[2018-11-10] MEDS: LISINOPRIL 5 MG TAB PO SCH (09:00)
[2018-11-10] MEDS ORDERED: LORazepam 0.5 MG/1 ML VIAL IV STA (15:02)
[2018-11-10] MEDS ORDERED: LORazepam 2 MG/4 ML VIAL ONE (15:04)
--- NOTE | 2018-11-10 16:37 | Consultation ---
Date of Consultation November 10, 2018 Assessment & Plan (1) ST elevation myocardial infarction (STEMI) of inferior wall: treated with emergent catheterization on 11/09 two drug eluting stents placed in the RCA no chest pain, vitals stable, transfer out of ICU will continue aspirin, Brilinta for one year continue Lipitor 80mg Lisinopril 5mg and metoprolol home tomorrow morning as long as he remains stable echocardiogram shows preserved EF, hypokinesis of apical wall (2) COPD (chronic obstructive pulmonary disease): no wheezing on exam, no distress continue PRN inhaler (3) Shortness of breath: resolved today History of Present Illness Reason for Consultation: medical management Requesting Physician: Dr. Ahumada Attending Physician: Giovani Booth DO History of Present Illness 78 yo male who presented on 11/09 with STEMI, taken emergently to the labelling machine operator, found to have acute thrombus in RCA, 2 DARWIN placed, no complications. The patient did well yesterday, vitals stable, no further chest pain, no dyspnea. Today he is sitting up eating dinner at the time of my visit. He is so strong that he wants to go home, discussed with him and cardiology that he should not go home today but tomorrow morning will be okay. His echocardiogram after the stent was placed showed a preserved EF with inferior wall hypokinesis. His labs are stable today. He is on Lipitor, aspirin, Brilinta, lisinopril and metoprolol. Allergies Allergy/AdvReac Type Severity Reaction Status Date / Time No Known Allergies Allergy Unverified 07/24/11 11:54 Home Medications Home Medications Medication Instructions Recorded Confirmed Type Unobtainable 11/09/18 11/09/18 History Patient History Medical History ST elevation myocardial infarction (STEMI) of inferior wall COPD (chronic obstructive pulmonary disease) (Chronic) Acute bronchitis (Acute) Acute sinusitis (Acute) Shortness of breath (Acute) Family History Other Family history non-contributory HTN (hypertension) Social History Current Living Situation: Spouse Other Information That Helps Us Care for You: No Feels Safe at Home: Yes Safety Concerns: Feels Safe At This Time Smoking Status: Former smoker Hx Alcohol Use: No Hx Substance Use: No Beliefs That Will Affect Care: None Communication Ability: Effective Review of Systems Constitutional: no fever, no chills, no sweats and no weakness Eyes: no diplopia, no dry eyes, no eye pain and no worsening vision Ear, Nose, Mouth, Throat: no ear pain, no hearing loss, no nasal discharge, no epistaxis, no dry mouth, no sore throat and no hoarseness Respiratory: no cough, no dyspnea, no pain with cough, no snoring and no wheezing Cardiovascular: no chest pain, no chest pain at rest, no dyspnea, no dyspnea on exertion, no orthopnea, no palpitations, no syncope and no edema Gastrointestinal: no abdominal pain, no nausea, no vomiting, no constipation and no diarrhea/loose stools Genitourinary (Male): no dysuria, no difficulty urinating, no urinary frequency , no urinary hesitancy, no urinary incontinence and no nocturia Musculoskeletal: no back pain, no neck pain, no joint pain, no myalgia and no muscle weakness Integumentary: no rash, no lesions, no skin ulcer, no wounds and no dry skin Neurologic: no gait abnormality, no unsteadiness, no tingling, no numbness, no tremor(s), no dizziness, no headache(s), no abnormal speech, no confusion and no memory loss Psychiatric: + anxiety; no behavioral changes, no depression and no confusion Endocrine: no fatigue, no polydipsia, no polyphagia, no polyuria, no cold intolerance and no heat intolerance Hematologic / Lymphatic: no easy bleeding, no easy bruising, no coagulopathy, no lymphadenopathy, no night sweats and no unexplained weight loss Physical Exam 2 Vital Signs (Past 24 Hours): Last Vital Signs Temp 36.9 C 11/10/18 08:02 Pulse 77 11/10/18 13:01 Resp 17 11/10/18 13:01 BP 110/53 L 11/10/18 13:01 Pulse Ox 94 11/10/18 13:01 Constitutional: WD/WN, vitals as above Eyes: PERRL, conjunctivae normal, anicteric sclerae ENMT: external ear and nose normal, oropharynx normal Neck: trachea midline, no thyromegaly Respiratory: normal respiratory effort, lungs clear to auscultation Cardiovascular: RRR, no murmur, no edema Gastrointestinal (Abdomen): normal bowel sounds, soft, nontender, no hepatosplenomegaly Musculoskeletal: no cyanosis or clubbing, extremities motor strength 5/5 Skin: no rashes, warm and dry Neurologic: patellar DTR's 2+ bilat, sensation intact and PERRL, EOMI, accommodation nl, no face palsy, no dysarthria Psychiatric: A+Ox3, euthymic affect Lymphatic: no cervical or axillary lymphadenopathy Results & Data Laboratory Results Laboratory Results - last 24 hr 11/09/18 11/10/18 11/10/18 20:11 02:35 02:35 WBC 9.58 RBC 4.47 L Hgb 14.1 Hct 41.9 L MCV 93.7 MCH 31.5 MCHC 33.7 RDW Std Deviation 46.8 H RDW Coeff of Mario 13.7 Plt Count 184 MPV 9.8 Immature Gran % (Auto) 0.2 Neut % (Auto) 70.2 Lymph % (Auto) 17.2 Meagher % (Auto) 10.9 Eos % (Auto) 1.4 Baso % (Auto) 0.1 Immature Gran # (Auto) 0.02 Neut # (Auto) 6.73 H Lymph # (Auto) 1.65 Meagher # (Auto) 1.04 H Eos # (Auto) 0.13 Baso # (Auto) 0.01 Sodium 138 Potassium 4.0 Chloride 109 H Carbon Dioxide 21 Anion Gap 8.0 BUN 18 Creatinine 1.23 Est Cr Clr Drug Dosing 58.9 Est GFR ( Amer) 64.3 Est GFR (Non-Af Amer) 55.5 BUN/Creatinine Ratio 14.3 Glucose 99 POC Glucose Estimat Average Glucose Hemoglobin A1c Calcium 8.3 L Phosphorus 2.4 L Magnesium 2.1 Troponin I 30.000 H* 26.100 H* Triglycerides 122 Cholesterol 167 LDL Cholesterol, Calc 112 VLDL Cholesterol, Calc 24 HDL Cholesterol 31 Cholesterol/HDL Ratio 5 11/10/18 11/10/18 02:35 06:32 WBC RBC Hgb Hct MCV MCH MCHC RDW Std Deviation RDW Coeff of Mario Plt Count MPV Immature Gran % (Auto) Neut % (Auto) Lymph % (Auto) Meagher % (Auto) Eos % (Auto) Baso % (Auto) Immature Gran # (Auto) Neut # (Auto) Lymph # (Auto) Meagher # (Auto) Eos # (Auto) Baso # (Auto) Sodium Potassium Chloride Carbon Dioxide Anion Gap BUN Creatinine Est Cr Clr Drug Dosing Est GFR ( Amer) Est GFR (Non-Af Amer) BUN/Creatinine Ratio Glucose POC Glucose 103 H Estimat Average Glucose 114 Hemoglobin A1c 5.6 Calcium Phosphorus Magnesium Troponin I Triglycerides Cholesterol LDL Cholesterol, Calc VLDL Cholesterol, Calc HDL Cholesterol Cholesterol/HDL Ratio Medications Administered Current Inpatient Medications Acetaminophen (Tylenol) 650 mg PO Q4H PRN PRN Reason: Mild Pain (scale 1-3) Stop: 12/09/18 14:21 Albuterol (Ventolin Hfa) 2 puffs INH Q6H PRN PRN Reason: wheezing Stop: 12/09/18 17:14 Last Admin: 11/10/18 00:28 Dose: 2 puffs Aspirin (Ecotrin Ectab) 81 mg PO [facility] Stop: 12/10/18 08:59 Last Admin: 11/10/18 09:00 Dose: 81 mg Atorvastatin Calcium (Lipitor) 80 mg PO [facility] Stop: 12/10/18 08:59 Last Admin: 11/10/18 08:59 Dose: 80 mg Lisinopril (Zestril) 5 mg PO [facility] Stop: 12/10/18 08:59 Last Admin: 11/10/18 09:00 Dose: 5 mg Lorazepam (Ativan) 0.5 mg PO Q8 PRN PRN Reason: Anxiety Stop: 12/10/18 20:07 Last Admin: 11/10/18 20:39 Dose: 0.5 mg Metoprolol Tartrate (Lopressor) 12.5 mg PO BID [facility] Stop: 12/09/18 20:59 Last Admin: 11/10/18 20:34 Dose: 12.5 mg Ondansetron HCl (Zofran) 4 mg IV Q6H PRN PRN Reason: Nausea And Vomiting Stop: 12/09/18 14:21 Ticagrelor (Brilinta) 90 mg PO BID [facility] Stop: 12/10/18 00:59 Last Admin: 11/10/18 20:36 Dose: 90 mg
[2018-11-10] MEDS: LORazepam 0.5 MG TAB PO PRN (20:39)
--- NOTE | 2018-11-10 22:47 | Cardiology Progress Note ---
Date of Service November 10, 2018 Assessment & Plan (1) ST elevation myocardial infarction (STEMI) of inferior wall: 2. COPD 3. Dyslipidemia 4. Preserved LV function, akinetic inferior wall Patient doing well from a cardiac standpoint. No recurrent chest pain. Hemodynamically electrically stable. No signs of heart failure. LV function preserved. Troponin peaked No access site complications. From a cardiac standpoint okay to transfer to telemetry today. Continue dual therapy with aspirin, ticagrelor Increase metoprolol to 25 mg twice daily, continue current lisinopril Continue high intensity statin Likely discharge home tomorrow a.m. Appreciate ICU team and hospital medicine care Subjective Patient feeling well. No recurrent chest pain. No significant shortness of breath. No other new complaints today. Telemetry reviewno events Review of Systems All systems reviewed & are unremarkable except as noted in HPI & below Physical Exam 2 Vital Signs (Past 24 Hours): Last Vital Signs Temp 36.5 C 11/10/18 19:31 Pulse 76 11/10/18 19:31 Resp 22 11/10/18 19:31 BP 126/68 11/10/18 19:31 Pulse Ox 96 11/10/18 19:31 Physical Exam: General: Comfortable, no acute distress Eyes: Sclerae anicteric, extraocular movements intact HENT: Oropharynx clear mucous membranes moist Lungs: Clear to auscultation bilaterally, no rhonchi or wheezes Cardiac: Regular rate and rhythm, no murmurs, rubs or gallops. Vascular: Right radial artery access site with no ecchymosis, hematoma. Distal pulse and sensation intact. Abdomen: Soft, nontender, nondistended, positive bowel sounds. Extremities: Well perfused, no peripheral edema Skin: No rashes or lesions. Neuro: Nonfocal Psych: Alert orient x3, normal affect and mood
[2018-11-11] MEDS: ATORVASTATIN 40 MG TAB PO SCH (07:56)
[2018-11-11] MEDS: LISINOPRIL 5 MG TAB PO SCH (07:56)
[2018-11-11] MEDS: TICAGRELOR 90 MG TAB PO SCH (07:56)
[2018-11-11] MEDS: METOPROLOL TARTRATE 25 MG TAB PO SCH (07:56)
[2018-11-11] MEDS: ASPIRIN 81 MG ECTAB PO SCH (07:57)
[2018-11-11 08:28] LABS: BUN Creatinine Ratio 17.9 (10-20); Calcium 8.6 mg/dl (8.5-10.1); Creatinine Clr Calc Pharmacy 55.9 ml/min; Est GFR (African American) 60.7; Est GFR (Non-African American) 52.4; Potassium 3.9 mmol/L (3.5-5.1)
--- NOTE | 2018-11-11 08:39 | Cardiology Progress Note ---
Date of Service November 11, 2018 Assessment & Plan (1) ST elevation myocardial infarction (STEMI) of inferior wall: 2. COPD 3. Dyslipidemia 4. Preserved LV function, akinetic inferior wall Patient doing well and okay for discharge from a cardiac standpoint. Cardiac meds on discharge -- - Ticagrelor 90mg BID - ASA 81 mg daily - Atorvastatin 80mg daily - metoprolol 25mg bid - lisinopril 5 mg daily Follow-up with me in 2 weeks. Subjective Patient feels well today. Slept well overnight. Denies any recurrent chest pain. No significant shortness of breath. Telemetry reviewedno events Physical Exam Vital Signs (Past 24 Hours): Last Vital Signs Temp 36.7 C 11/11/18 03:43 Pulse 69 11/11/18 03:43 Resp 17 11/11/18 03:43 BP 114/63 11/11/18 03:43 Pulse Ox 94 11/11/18 03:43 Physical Exam: General: Comfortable, no acute distress Eyes: Sclerae anicteric, extraocular movements intact HENT: Oropharynx clear mucous membranes moist Lungs: Clear to auscultation bilaterally, no rhonchi or wheezes Cardiac: Regular rate and rhythm, no murmurs, rubs or gallops. Vascular: Right radial artery access site with no ecchymosis, hematoma. Distal pulse and sensation intact. Abdomen: Soft, nontender, nondistended, positive bowel sounds. Extremities: Well perfused, no peripheral edema Skin: No rashes or lesions. Neuro: Nonfocal Psych: Alert orient x3, normal affect and mood
[2018-11-11] MEDS: LORazepam 0.5 MG TAB PO PRN (09:25)
--- NOTE | 2018-11-11 23:36 | Discharge Summary ---
Date of Service November 11, 2018 Admission HPI Per Admitting Provider Mr. Freire is a 78-year-old man with a history of COPD, GERD brought to the ED in the setting of acute onset chest pain. Patient was painting when developed acute substernal chest pain. No associated nausea, pain nonradiating. No prior similar symptoms. Pain began approximately 2 hours prior to presentation. EMS contacted and EKG in route showed inferior ST elevations and heart alert activated from the field. In route received nitroglycerin, IV fluids, fentanyl. On arrival to the ED ongoing 4-10 chest pain. EKG again showed inferior ST elevations with heart rates in the 60s. Hemodynamically stable. No other prior cardiac history. Family history: Mother with PR in her 80s Social history: and lives with . 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 Quit smoking 5 years ago. Admission Exam Per Admitting Provider General: Comfortable, no acute distress Eyes: Sclerae anicteric, extraocular movements intact HENT: Oropharynx clear mucous membranes moist Lungs: Clear to auscultation bilaterally, no rhonchi or wheezes Cardiac: Regular rate and rhythm, no murmurs, rubs or gallops. Vascular: 2+ radial pulses bilaterally. Diminished femoral pulses bilaterally. Nonpalpable DP/PT pulses bilaterally. Lower extreme is warm Abdomen: Soft, nontender, nondistended, positive bowel sounds. Extremities: Well perfused, no peripheral edema Skin: No rashes or lesions. Neuro: Nonfocal Psych: Alert orient x3, normal affect and mood Principal Diagnosis STEMI Discharge Exam Constitutional WD/WN, vitals as above Eyes PERRL, conjunctivae normal, anicteric sclerae ENMT external ear and nose normal, oropharynx normal Neck trachea midline, no thyromegaly Respiratory + labored breathing (gets occasional labored breathing just from talking); no cough Auscultation: lungs clear to auscultation bilaterally; no rales, no rhonchi and no wheezes Cardiovascular RRR, no murmur, no edema Gastrointestinal (Abdomen) normal bowel sounds, soft, nontender, no hepatosplenomegaly Musculoskeletal no cyanosis or clubbing, extremities motor strength 5/5 Skin no rashes, warm and dry Neurologic patellar DTR's 2+ bilat, sensation intact and PERRL, EOMI, accommodation nl, no face palsy, no dysarthria Psychiatric A+Ox3, euthymic affect Lymphatic no cervical or axillary lymphadenopathy Discharge Data Allergies Allergy/AdvReac Type Severity Reaction Status Date / Time No Known Allergies Allergy Unverified 07/24/11 11:54 Consultations 11/09/18 14:20 Consult Case Management - Discharge Planning Routine 11/09/18 14:21 Consult Freelance Makeup Artist Routine 11/09/18 14:25 Consult Cardiac Rehabilitation Routine Procedures Performed Operation Date: 11/09/18 13:00 Actual Procedures s Cath, Left with Cors and Vent - Yovanny Ahumada MD p Aspiration/PCI w/DARWIN for Stemi(Not Applicable) - Yovanny Ahumada MD s Cineradiography w/Routine Exam(Not Applicable) - Yovanny Ahumada MD Ordered Studies 11/09/18 13:02 CL Cath Imgs for PACS use only Stat Hospital Course (1) ST elevation myocardial infarction (STEMI) of inferior wall: treated with emergent catheterization on 11/09 two drug eluting stents placed in the RCA no chest pain after procedure, stable for two days went to tele on 11/10 will continue aspirin, Brilinta for one year pharmacy called, they do not carry Brilinta and he cannot afford replaced with Plavix 75mg daily needs to discuss with PCP or Dr. Ahumada to get Brilinta approved and affordable continue Lipitor 80mg daily Lisinopril 5mg and metoprolol echocardiogram shows preserved EF, hypokinesis of apical wall d/c to home instructions given to refrain from any strenuous activity until seen by Dr. Ahumada in follow up this was conveyed to patient's family as well (2) COPD (chronic obstructive pulmonary disease): no wheezing on exam continue PRN inhaler, Albuterol he was formerly on Dulera, called his PCP office, last time it was filled was 2017 prescribed Dulera for him again, explained that this is for every day use, maintenance inhaler will likely need to follow up with pulm for repeat PFT, heavy smoking history (3) Shortness of breath: gets winded just talking, family says that this has been ongoing issue for him he used to smoke 5 ppd, quit 5 years ago certainly has COPD, not sure how severe no hypoxia, no need for home oxygen follow up with PCP Total Time Total Time Spent Total Time Spent (In Minutes): 45 minutes Total Time Includes: Examination of the Patient, Discharge Planning, Medication Reconciliation, Communication With Other Providers (Dr. Ahumada) and Other ( discussed with family) Discharge Plan Discharge Items Patient Disposition: Home - Self-Care Reason For Visit: STEMI Discharge Diagnosis: STEMI Condition: Good Discharge Goals: Improve disease control and Improve function Activity: Per 'Additional Instructions' section Lifting: Gradually increase as tolerated Bathing: No limitations Sexual Activity: Wait until after follow-up appointment Exercise/Sports: Wait until after follow-up appointment Driving/Machine Use: No limitations Non-emergency contact: Primary Care Provider and Senior Accounts Payable Specialist Call non-emergency contact if: you have any medication questions, your symptoms worsen and you have a fever Follow-up/Referrals: Swati Mustafa CRNP [Primary Care Provider] - Diet: Heart Healthy Addtl Provider Instructions: Medications: - LIPITOR: 80mg daily - BRILINTA: 90mg twice a day - ASPIRIN: 81mg daily - LISINIPRIL: 5mg daily - METOPROLOL: 25mg twice a day - ALBUTEROL: use inhaler every 6 hours as needed for shortness of breath/ wheezing - DULERA: two inhalations twice a day, this is a MAINTENANCE inhaler, use EVERY DAY no matter what In summary, you experienced an ST elevation PR (heart attack) treated with emergent cath, stents placed in RCA plan for aspirin and Brilinta for one year Lipitor 80mg daily, cholesterol medication that will stabilize plaques, protects against future heart attacks Lisinopril 5mg daily Metoprolol 25mg twice a day, helps heart function do not exert yourself until after cleared by air reduction equipment operator at follow up visit FOLLOW UP - Swati LEBLANC in one week - Dr. Ahumada in 2 weeks Prescriptions: New albuterol sulfate [Ventolin HFA] 90 mcg/actuation Hfa Aerosol Inhaler 2 puff Inhalation Q6H PRN (Reason: shortness of breath or wheezing) 30 Days Qty: 6.7 RF: 3 atorvastatin 40 mg Tablet 80 mg PO QAM 30 Days Qty: 60 RF: 3 aspirin [Ecotrin Low Strength] 81 mg Tablet,Delayed Release (Dr/Ec) 81 mg PO QAM 30 Days Qty: 30 RF: 0 lisinopril [Zestril] 5 mg Tablet 5 mg PO QAM 30 Days Qty: 30 RF: 3 metoprolol tartrate 25 mg Tablet 25 mg PO BID 30 Days Qty: 60 RF: 3 ticagrelor [Brilinta] 90 mg Tablet 90 mg PO BID 30 Days Qty: 60 RF: 3 mometasone-formoterol [Dulera] 200-5 mcg/actuation HFA aerosol inhaler 2 inha INH BID Qty: 8.8 RF: 3 Stand-Alone Forms: [facility] Discharge Orders: Discharge Order (Routine); Ordered 11/11/18 Ordered By: Giovain Booth Admission Data Admit Date/Time: 11/09/18 14:21 Attending Provider: Giovani Booth Admit Provider: Yovanny Ahumada Primary Care Provider: Swati Mustafa Other Providers: Gabriela Pham Service: Telemetry Other Interventions: Discharge Summary Assessment (RN) Last Done: 11/11/18 09:09 DC Date/Time DO NOT enter until pt leaves facility: 11/11/18 10:30
== END 2018-11-11 10:30 | disposition home or self-care (01) | DRG 247 ==
LOC: ED 13:00 → CC 13:31 → 1E 13:31 → 2S 11-10 19:34
DX: I95.2 Hypotension due to drugs; J01.90 Acute sinusitis, unspecified; Y92.009 Unspecified place in unspecified non-institutional (private) residence as the place of occurrence of the external cause; K21.9 Gastro-esophageal reflux disease without esophagitis; I25.2 Old myocardial infarction; Z87.891 Personal history of nicotine dependence; T46.3X5A Adverse effect of coronary vasodilators, initial encounter; I21.19 ST elevation (STEMI) myocardial infarction involving other coronary artery of inferior wall; I25.10 Atherosclerotic heart disease of native coronary artery without angina pectoris; J44.9 Chronic obstructive pulmonary disease, unspecified; E78.5 Hyperlipidemia, unspecified

== ENCOUNTER 2019-03-10 05:52 | Observation (INO) ==
--- OUTSIDE RECORDS SUMMARY | 2019-03-10 05:55 | External Medical Summary | Continuity of Care Document ---
:1940 Author Name Yolanda Fernandez Address Unavailable Unavailable , Care Team Providers Name Role Phone Pro Panfilo Fernandez Unavailable [email or web address] Trevor LEBLANC Unavailable [email or web address] Suleiman LANG Unavailable [email or web address] Clayton MARQUEZ Unavailable Unavailable Unavailable Unavailable Unavailable Assessments Assessed Problems:HyperlipidemiaHistory of ST elevation myocardial infarction (STEMI)Presence of drug-eluting stent in right coronary artery Problems Chronic obstructive pulmonary disease (496) (J44.9) Obstructive sleep apnea (327.23) (G47.33) Obesity (278.00) (E66.9) Hyperlipidemia (272.4) (E78.5) Presence of drug-eluting stent in right coronary artery (V45 .82) (Z95.5) History of ST elevation myocardial infarction (STEMI) (412) (I25.2) Impacted cerumen of both ears (380.4) (H61.23) Hyperglycemia (790.29) (R73.9) Pain in joint of right shoulder (719.41) (M25.511) Gastroesophageal reflux disease (530.81) (K21.9) Generalized osteoarthritis of multiple sites (715.09) (M15.9 ) Lumbar radiculopathy (724.4) (M54.16) Seborrheic dermatitis (690.10) (L21.9) Left ventricular hypertrophy (429.3) (I51.7) 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) Allergies and Adverse Reactions No Known Drug Allergies (Allergy) Medications Ventolin HFA 108 (90 Base) MCG/ACT Inhal ation Aerosol Solution; INHALE 1-2 PUFFS BY MOUTH EVERY 4-6 HOURS NEEDED 8 GM Inhaler Refills: 0 Pantoprazole Sodium 40 MG Oral Tablet De layed Release; TAKE 1 TABLET DAILY 30 MIN BEFORE DINNER DEANA Murray Start: 10-Jun-2015 Quantity: 30 Refills: 5 Atorvastatin Calcium 80 MG Oral Tablet; TAKE ONE TABLET BY MOUTH ONCE DAILY AT BEDTIME RICKEY Bearden Janneth Quantity: 90 Refills: 3 Aspirin 81 MG Oral Tablet Delayed Release; Take 1 tablet jimbo ly Refills: 0 Lisinopril 5 MG Oral Tablet; take 1 tablet by mouth on ce daily RICKEY Bearden Janneth Quantity: 90 Refills: 3 Metoprolol Tartrate 25 MG Oral Tablet; TAKE 1 TABLET B Y MOUTH TWICE DAILY RICKEY Bearden Janneth Quantity: 180 Refills: 3 Brilinta 90 MG Oral Tablet; TAKE 1 TABLET BY MOUTH TWI CE DAILY RICKEY Bearden Janneth Quantity: 180 Refills: 3 Albuterol Sulfate (2.5 MG/3ML) 0.083% In halation Nebulization Solution; USE 1 VIAL IN NEBULIZER EVERY 6 HOURS NEEDED. Rebecca Heredia Start: 26-Jul-2011 Quantity: 60 Refills: 6 Procedures History of Surgery Of Palate And Uvula S tatus: Completed History of Spinal Diskectomy Lumbar Stat us: Completed History of cardiac catheterization with stent placement Status: Completed Immunizations Decavac 5-2 LFU INJ On: 01-Oct-2011 12:28 Lot #: [id number], [employer] Pneumovax 23 25 MCG/0.5ML Injection Injectable On: 01-Oct-19 12 12:30 MERCK SH[employer] DOHME Influenza On: 24-Jun-2012 11:18 Lot #: [id number], [employer]OFI PASTEUR Fluzone High-Dose Intramuscular Suspension On: 01-Jul-2013 1 4:13 Lot #: [id number], SANOFI PASTEUR Influenza On: 27-Jul-2014 10:24 Lot #: [id number], SANOFI PA[employer]UR Prevnar 13 Intramuscular Suspension On: 31-Dec-2014 10:46 Lot #: [id number], WYETH Fluzone High-Dose Intramuscular Suspension On: 24-Jun-2015 9: 00 Lot #: [id number], SANOFI PASTEUR Influenza Comments:Approx 2010 Family History Father Family history of Malignant Pancreatic Neoplasm Status: Acti ve Unknown Family Member Family history of Malignant Pancreatic Status: Active C omments: Family History Neoplasm Mother Family history of myocardial infarction (V17.3) (Z82.49) Sta tus: Active Social History - Smoking Status Former smoker Interventions Discussion/Summary1. Coronary artery disease post inferior STEMI 10/2018--treated with 2 overlapping DARWIN to distal RCA and PDA 2. Residual non-culprit disease- moderate mid LAD, circumflex. Severe small second diagonal, OM disease 3. Dyslipidemia 4. COPD Patient continues to do well from a cardiac standpoint. He remains physically active without any anginal type symptoms. His chronic exertional dyspnea is stable and likely secondary to his COPD. On exam he appears well perfused any signs of heart failure. Continue dual anti-platelet therapy with aspirin and Brilinta for at least 1 year. Continue high intensity statin, due for fasting lipids. Continue lisinopril and metoprolol. Follow-up with Dr. Ahumada in 6 months or sooner if issues arise. Plan of Treatment Planned Encounters Follow-up visit in 6 months Request Planned Observations Planned Goals not documented Results No Known Results Results not documented Vital Signs 03-Mar-2019 9:02 Systolic 142 mm[Hg] Comments: Location: LUE; Position: Sitting Diastolic 66 mm[Hg] Comments: Location: LUE; Position: Sitting Weight 232.5625 lb BSA Calculated 2.16 m2 BMI Calculated 36.42 kg/m2 Heart Rate 68 /min Comments: Location: L Radial; Encounters Appointment; Robert Ahumada M.D. 27-Nov-2018 12:45 Encounter Diagnosis: Problem not documented Appointment; Asim Lowry PA-C 20-Nov-2017 9:00 Encounter Diagnosis: Problem not documented Appointment; Asim Lowry PA-C 16-May-2017 9:00 Encounter Diagnosis: Problem not documented Appointment; Janneth Bearden PA-C 03-Mar-2019 9:30 Encounter Diagnosis: Problem not documented
[2019-03-10] MEDS ORDERED: LORazepam 1 MG/2 ML VIAL IV STA (06:12)
[2019-03-10 06:27] LABS: Basophils # (auto) 0.02 K/uL (0-0.2); Basophils % (auto) 0.3 %; Eosinophils % (auto) 4.6 %; Hemoglobin 11.5 g/dL (14.0-18.0); Immature Granulocytes # (auto) 0.01 K/uL (0.00-0.02); Immature Granulocytes % (auto) 0.2 %; Lymphocytes # (auto) 1.68 K/uL (1.2-3.4); Mean Corpuscular Hgb Conc 32.9 g/dL (32-36); Mean Corpuscular Volume 90.7 fL (80-100); Mean Platelet Volume 9.8 fL (7.4-10.4); Monocytes # (auto) 1.01 K/uL (0.11-0.59); Monocytes % (auto) 15.6 %; Neutrophils # (auto) 3.44 K/uL (1.4-6.5); Neutrophils % (auto) 53.3 %; Platelet Count 210 K/uL (130-400); RDW Standard Deviation 46.4 fL (36.4-46.3); Red Blood Count 3.86 M/uL (4.7-6.1); White Blood Count 6.46 K/uL (4.8-10.8)
[2019-03-10 06:34] LABS: Alanine Aminotransferase 36 U/L (12-78); Albumin Level 3.5 gm/dl (3.4-5.0); Aspartate Aminotransferase 32 U/L (15-37); BUN Creatinine Ratio 15.3 (10-20); Blood Urea Nitrogen 21 mg/dl (7-18); Carbon Dioxide 24 mmol/L (21-32); Chloride 111 mmol/L (98-107); Creatinine Clr Calc Pharmacy 53.5 ml/min; Est GFR (African American) 57.5; Est GFR (Non-African American) 49.6; Glucose 90 mg/dl (70-99); Potassium 3.8 mmol/L (3.5-5.1); Sodium 142 mmol/L (136-145)
[2019-03-10 06:38] LABS: Albumin Globulin Ratio 0.8 (0.9-2); Alkaline Phosphatase 201 U/L (45-117); Bilirubin,Total 0.3 mg/dl (0.2-1); Globulin 4.2 gm/dl (2.5-4.0); NT Pro B Type Natriuretic Pept 229 pg/ml (0-1800); Total Protein 7.7 gm/dl (6.4-8.2); Troponin I < 0.015 ng/ml (0-0.045)
--- NOTE | 2019-03-10 06:45 | XRay Report ---
XR chest 1V portable CLINICAL HISTORY: Midsternal chest pain. COMPARISON STUDY: Chest radiograph November 09, 2018. FINDINGS: Lung volumes are normal. There may be a trace right pleural effusion. There is no pneumotho rax. Mild cardiomegaly is noted. Mild lower lung interstitial thickening and opacities are noted. IMPRESSION: Mild bilateral lower lung interstitial thickening opacities. Electronically signed by: Chuck Preciado M.D. 03/10/2019 6:43 AM
[2019-03-10 07:15] LABS: D Dimer 1290 ug/L FEU (0-500)
--- NOTE | 2019-03-10 07:34 | Emergency Department Note ---
Entered by Mirtha Bearden acting as a scribe for History of Present Illness General Chief complaint: Cardiac Assessment Stated complaint: CHEST PRESSURE Time Seen by Provider: 03/10/19 05:56 Source: patient History of Present Illness Onset (ago): hour(s) 4 Location: chest Pain Consistency: + other (sudden) Quality: + other (shortness of breath) Associated symptoms: + chest pain and + other (leg swelling) The patient is a 78 year old male who presents to the ED with complaints of sudden shortness of breath starting 4 hours ago. The patient states that 4 hours ago he woke up from his sleep with centralized chest pain and shortness of breath. He states that it feels like he cannot get his air still. He reports that his chest pain has subsided, but he has a pressure throughout now. The patient notes that he felt fine before bed, but states that he started Brilinta for the first time last night. The patient complains of leg swelling, but states that they have not determined why. He notes that he used to smoke 5 packs a day and quit 6 years ago. The patient denies using Lasix. Home Medications Home Medications Medication Instructions Recorded Confirmed Type albuterol sulfate [Ventolin HFA] 2 puff INHALATION Q6H PRN 30 Days 11/11/18 03/10/19 Rx #6.7 gm lisinopril [Zestril] 5 mg PO QAM 30 Days #30 tab 11/11/18 03/10/19 Rx metoprolol tartrate 25 mg PO BID 30 Days #60 tab 11/11/18 03/10/19 Rx mometasone-formoterol [Dulera] 2 inha INH BID #8.8 gm 11/11/18 03/10/19 Rx ticagrelor [Brilinta] 90 mg PO BID 30 Days #60 tab 11/11/18 03/10/19 Rx aspirin 81 mg PO HS 03/10/19 03/10/19 History atorvastatin 80 mg PO DAILY 03/10/19 03/10/19 History fluticasone propion-salmeterol 1 inh INHALATION BID 03/10/19 03/10/19 History [Wixela Inhub] temazepam 7.5 mg PO HS PRN 03/10/19 03/10/19 History Allergies Allergy/AdvReac Type Severity Reaction Status Date / Time No Known Allergies Allergy Unverified 03/10/19 06:43 Past Med/Surg History Medical History Acute myocardial infarction (Acute) Elevated troponin (Acute) ST elevation myocardial infarction (STEMI) of inferior wall COPD (chronic obstructive pulmonary disease) (Chronic) Acute bronchitis (Acute) Acute sinusitis (Acute) Shortness of breath (Acute) GERD (gastroesophageal reflux disease) Osteoarthritis Surgical History H/O heart artery stent Family History Other Family history non-contributory Hypertension Social History Preferred Language: Portuguese Communication Ability: Effective [employer] Required: No Beliefs That Will Affect Care: None marital status: Current Living Situation: Spouse Current Living Situation Comment: in an apartment current occupational status: retired Other Information That Helps Us Care for You: No Feels Safe at Home: Yes Safety Concerns: Feels Safe At This Time Smoking Status: Former smoker Hx Alcohol Use: Yes Alcohol type: beer Hx Substance Use: No Review of Systems See HPI for pertinent positives & negatives. and A total of 10 systems reviewed and were otherwise negative Physical Exam Vital Signs Vital Signs - 24 hr 03/10/19 05:53 03/10/19 06:13 03/10/19 06:14 Temperature 37.5 C Temperature Source Oral Sepsis Action Taken by Nursing No Action Required Pulse Rate 74 Pulse Rate [Finger] Respiratory Rate 28 H Respiratory Effort / Characteristics Respiratory Depth Respiratory Pattern Rapid/Shallow Blood Pressure 189/64 H Blood Pressure [Left Arm] Blood Pressure Mean 105 Blood Pressure Mean [Left Arm] Pulse Oximetry 98 98 98 Oxygen Delivery Method Room Air Room Air Room Air 03/10/19 07:00 Temperature Temperature Source Sepsis Action Taken by Nursing Pulse Rate Pulse Rate [Finger] 66 Respiratory Rate 16 Respiratory Effort / Characteristics Non-Labored Respiratory Depth Normal Respiratory Pattern Blood Pressure Blood Pressure [Left Arm] 199/95 H Blood Pressure Mean Blood Pressure Mean [Left Arm] 129 Pulse Oximetry 95 Oxygen Delivery Method HEENT: Head - normocephalic and atraumatic Pupils are equal, round, and reactive to light. Extraocular eye muscles are intact, and sclera are anicteric. Nose - moist nasal mucosa without discharge. Mouth - moist buccal mucosa. Oropharynx is nonerythematous and there is no tonsillar exudate or edema noted. Neck: Supple; no JVD, nuchal rigidity, cervical lymphadenopathy, or auscultated bruits. Heart: Regular rate and rhythm. There is a normal S1 and S2 with no murmurs, clicks, or gallops appreciated. Lungs: Diminished breath sounds in all lung fu. No wheezes, rales, or rhonchi. Abdomen: Soft, completely nontender, nondistended, with good bowel sounds. There are no palpable pulsatile masses or hepatosplenomegaly. There is no guarding, rigidity, or rebound noted. Extremities: 2+ edema in legs. No evidence of cyanosis or clubbing. There are easily palpable peripheral pulses. Skin: warm and dry with good turgor and no rashes. Course 0557: Past medical records reviewed. The patient was evaluated in room B6. A complete history and physical exam was performed. Laboratory studies were drawn as above. The patient was observed on the hall monitor and pulse oximeter. O2 saturations remained around 97% on room air. 0612: The patient appeared quite anxious. I ordered Ativan 1 mg in 2 ml IV. 0631: I reevaluated the patient and he is sound asleep. His vital signs are stable. His respiratory rate has slowed tremendously. 0657: I reviewed the patient's cardiac cath report in October at this time. He had multi vessel disease at that time. 0701: I reevaluated the patient and updated him on his test results. I discussed the treatment plan with him. He verbally agrees and understands. 0708: I discussed the patient's case with Dr. Jose Hospitalist. He will evaluate the patient for further management. 0730: The patient has a significantly elevated d-dimer and will go for CT scan of the chest to rule out PE. Consultations Consultation #1: I discussed the patient's case with Dr. Jose Hospitalist. He will evaluate the patient for further management. Time: 07:08 Administered Medications Atorvastatin Calcium (Lipitor) 80 mg PO DAILY [facility] Stop: 04/09/19 08:59 Last Admin: 03/10/19 10:05 Dose: 80 mg Documented by: [id number] [facility]) [facility] [place] [place] Stop: 04/09/19 08:59 Last Admin: 03/10/19 10:07 Dose: 5 mg Documented by: [id number] Metoprolol Tartrate (Lopressor) 25 mg PO BID [facility] Stop: 04/09/19 08:59 Last Admin: 03/10/19 10:07 Dose: 25 mg Documented by: [id number] Miscellaneous (Order Awaiting Action) 1 ea N/A BID [facility] Stop: 04/09/19 08:59 Last Admin: 03/10/19 10:08 Dose: Not Given Documented by: [id number] Ticagrelor (Brilinta) 90 mg PO BID [facility] Stop: 04/09/19 08:59 Last Admin: 03/10/19 10:03 Dose: Not Given Documented by: [id number] Discontinued Medications Clopidogrel Bisulfate (Plavix) Confirm Administered Dose 75 mg .ROUTE .STK-MED ONE Stop: 03/10/19 13:34 Last Admin: 03/10/19 13:37 Dose: 75 mg Documented by: [id number] Fentanyl Citrate (Fentanyl Citrate) Confirm Administered Dose 100 mcg .ROUTE .STK-MED ONE Stop: 03/10/19 12:18 Last Increment: 03/10/19 13:36 Dose: 50 mcg Documented by: [id number] Heparin Sodium (Porcine) (Heparin Iv Bolus (Podiatric Technician Use Only)) Confirm Administered Dose 10,000 units .ROUTE .STK-MED ONE Stop: 03/10/19 12:18 Last Admin: 03/10/19 13:37 Dose: 5,000 units Documented by: [id number] Heparin Sodium/Sodium Chloride (Heparin/Nss 1000 Unit/500ml Flush Bag) Confirm Administered Dose 3,000 units IV .STK-MED ONE Stop: 03/10/19 12:18 Last Admin: 03/10/19 13:37 Dose: 3,000 units Documented by: [id number] Lorazepam (Ativan) 1 mg in 2 mls @ 2 mls/min IV NOW STA Stop: 03/10/19 06:13 Last Admin: 03/10/19 06:18 Dose: 2 mls/min Documented by: [id number] Furosemide 20 mg/ Syringe 2 mls @ 4 mls/min IV 0930 ONE Stop: 03/10/19 09:31 Last Admin: 03/10/19 09:33 Dose: 4 mls/min Documented by: [id number] Ioversol (Optiray 320 125ml) 120 ml IV ONCE PRN PRN Reason: Interaction Checking Stop: 03/14/19 07:36 Last Admin: 03/10/19 07:37 Dose: 120 ml Documented by: [id number] Midazolam HCl (Versed) Confirm Administered Dose 2 mg .ROUTE .STK-MED ONE Stop: 03/10/19 12:17 Last Increment: 03/10/19 13:35 Dose: 1 mg Documented by: [id number] Nicardipine HCl (Cardene) Confirm Administered Dose 25 mg .ROUTE .STK-MED ONE Stop: 03/10/19 12:18 Last Admin: 03/10/19 13:36 Dose: 25 mg Documented by: [id number] Nitroglycerin/Dextrose (Nitroglycerin/D5w 100 Mcg/Ml 20ml Syringe) Confirm Administered Dose 2,000 mcg .ROUTE .STK-MED ONE Stop: 03/10/19 12:18 Last Admin: 03/10/19 13:37 Dose: 2,000 mcg Documented by: [id number] Medical Decision Making Differential Diagnosis Differential diagnoses include CHF, pulmonary embolism, STEMI, acute coronary syndrome. Medical Records Attestation: I reviewed the patient's medical records. Home Medications Current Medication List: was personally reviewed by me Laboratory Data Attestation: I reviewed the patient's lab results. Result diagrams: 03/10/19 05:20 03/10/19 05:20 Lab Results 03/10/19 03/10/19 03/10/19 Range/Units 05:20 05:20 06:39 WBC 6.46 (4.8-10.8) K/uL RBC 3.86 L (4.7-6.1) M/uL Hgb 11.5 L (14.0-18.0) g/dL Hct 35.0 L (42-52) % MCV 90.7 (80-100) fL MCH 29.8 (25-34) pg MCHC 32.9 (32-36) g/dL RDW Std Deviation 46.4 H (36.4-46.3) fL RDW Coeff of Mario 14.0 (11.5-14.5) % Plt Count 210 (130-400) K/uL MPV 9.8 (7.4-10.4) fL Immature Gran % (Auto) 0.2 % Neut % (Auto) 53.3 % Lymph % (Auto) 26.0 % [place] % (Auto) 15.6 % Eos % (Auto) 4.6 % Baso % (Auto) 0.3 % Immature Gran # (Auto) 0.01 (0.00-0.02) K/uL Neut # (Auto) 3.44 (1.4-6.5) K/uL Lymph # (Auto) 1.68 (1.2-3.4) K/uL [place] # (Auto) 1.01 H (0.11-0.59) K/uL Eos # (Auto) 0.30 (0-0.5) K/uL Baso # (Auto) 0.02 (0-0.2) K/uL PT 11.2 (9.0-12.0) Seconds INR 1.1 (0.9-1.1) D-Dimer 1290 H* (0-500) ug/L FEU Sodium 142 (136-145) mmol/L Potassium 3.8 (3.5-5.1) mmol/L Chloride 111 H (98-107) mmol/L Carbon Dioxide 24 (21-32) mmol/L Anion Gap 7.0 (3-11) BUN 21 H (7-18) mg/dl Creatinine 1.35 (0.6-1.4) mg/dl Est Cr Clr Drug Dosing 53.5 ml/min Est GFR ( Amer) 57.5 Est GFR (Non-Af Amer) 49.6 BUN/Creatinine Ratio 15.3 (10-20) Glucose 90 (70-99) mg/dl Calcium 9.0 (8.5-10.1) mg/dl Total Bilirubin 0.3 (0.2-1) mg/dl AST 32 (15-37) U/L ALT 36 (12-78) U/L Alkaline Phosphatase 201 H (45-117) U/L Troponin I < 0.015 (0-0.045) ng/ml NT-Pro-B Natriuret Pep 229 (0-1800) pg/ml Total Protein 7.7 (6.4-8.2) gm/dl Albumin 3.5 (3.4-5.0) gm/dl Globulin 4.2 H (2.5-4.0) gm/dl Albumin/Globulin Ratio 0.8 L (0.9-2) Lipase 140 (73-393) U/L Imaging Data Attestation: I personally reviewed and interpreted this imaging study as follows: My Impression: CHEST X-RAY: The results were interpreted by me. Mild pulmonary vascular congestion. Cardiomegaly. ECG Data Attestation: I personally reviewed and interpreted this ECG as follows: Indication: SOB/dyspnea Rate (beats per minute): 75 Rhythm: normal sinus Findings: no PAC, no PVC, no ST depression, no ST elevation and no acute ischemic change Blood Pressure Blood Pressure Findings: Elevated blood pressure Blood Pressure Disposition: further management by hospitalist BRE Mulligan The patient is a 78 year old male who presents to the ED with complaints of sudden shortness of breath starting 4 hours ago. The patient developed some chest heaviness and shortness of breath and what he describes as a feeling of panic. EMS was called and he was transported here to the emergency department. Upon arrival, the patient remained tachypneic. O2 saturations were stable. His chest heaviness has subsided. He has a normal appearing EKG and negative troponin. However, the patient has significant risk factors and had a cardiac cath performed in October of this year with multivessel disease. At the time, the patient had 2 stents placed in the RCA. The patient has an elevated d-dimer and will go for CT scan of the chest to rule out PE. Chest x-ray shows no evidence of acute congestive heart failure. The Ativan seemed to help with the patient's anxiety. I discussed the case with the [facility] hospitalist and they will evaluate for further management. Impression & Plan Substernal chest pain, Shortness of breath Discharge Plan Visit Data *Final* Discharge Date/Time: 03/10/19 08:02 Chief Complaint: Cardiac Assessment Stated Complaint: CHEST PRESSURE ED Provider: Eileen Vasquez Discharge Problem: Substernal chest pain, Shortness of breath Patient Disposition: Admitted As Inpatient Discharge Instructions Interventions: ED Discharge Assessment Last Done: 03/10/19 08:02 The scribe's documentation has been prepared under my direction and personally reviewed by me in its entirety. I confirm that the note above accurately reflects all work, treatment, procedures, and medical decision making performed by me.
[2019-03-10] MEDS ORDERED: OPTIRAY 320 125ml IV PRN (07:37)
--- NOTE | 2019-03-10 07:54 | CT Scan Report ---
CT ANGIOGRAPHY OF THE CHEST, PULMONARY EMBOLUS PROTOCOL CLINICAL HISTORY: Shortness of breath. Chest pain. COMPARISON STUDY: Chest CT October 12, 2015. Chest radiograph performed earlier today. TECHNIQUE: Following IV administration of 120 mL of Optiray-320, helical axial images of the chest we re obtained utilizing the pulmonary embolus protocol. Maximal intensity projections and sagittal and coronal reformats were viewed on an independent 3D workstation. IV contrast was administered withou t complication. Automated exposure control was utilized for the study. A dose lowering technique wa s utilized adhering to the principles of ALARA. FINDINGS: No pulmonary emboli are identified. There is no evidence for thoracic aortic dissection. T he heart is moderately enlarged. Extensive coronary artery calcification is noted. There are several partially calcified thoracic lymph nodes. The central airways are patent. Interlobular septal thicken ing suggests mild edema. There are mild groundglass opacities. There is mild emphysema. Calcified gra nuloma within the left lower lobe is noted. There is no consolidation to suggest pneumonia. No suspic ious osseous lesions are noted. Upper abdomen is unremarkable. IMPRESSION: 1. No pulmonary emboli identified. 2. Mild interstitial pulmonary edema. 3. Moderate cardiomegaly. Extensive coronary artery calcification. Electronically signed by: Chuck Preciado M.D. 03/10/2019 7:51 AM
--- NOTE | 2019-03-10 08:13 | History & Physical Report ---
Date of Service March 10, 2019 Assessment & Plan (1) Substernal chest pain: Patient is on observation status Serial troponins will be checked Patient maintained on home medications including dual antiplatelet therapy lisinopril metoprolol atorvastatin Cardiac consult be undertaken patient is kept n.p.o. in case and diagnostic risk stratification procedures performed (2) COPD (chronic obstructive pulmonary disease): Patient feels his Dulera was changed as an outpatient I asked the pharmacy [facility] to determine if this is true at this point time we will continue his Dulera with PRN duo nebs for shortness of breath (3) Hypertension: As mentioned the patient takes medications for his cardiac risk stratification reduction he will be maintained on his metoprolol lisinopril his blood pressure likely is up from his anxiety will have PRN hydralazine available if needed (4) Anxiety: Patient will have PRN lorazepam (5) DVT prophylaxis: Patient not formally anticoagulated if he stays overnight we will begin heparin subcu therapy for DVT prevention History of Present Illness Primary Care Provider: DEANA Lopez 78-year-old male presents to the ER after being awoken from sleep with substernal chest pressure, associated shortness of breath, feelings of being flushed and nauseousness. The patient did not have any pain radiating to his neck arm or back. Patient is a known coronary artery disease patient having a heart alert in October with 2 drug-eluting stents placed in his right coronary artery. At that time his ejection fraction was preserved and he only had mild 30 to 40% disease in his other coronary vasculature. Family notes over the last 3 to 4 days the patient's had increasing dyspnea on exertion sometimes with cyanotic lips and increasing fatigue. Patient also suffers from COPD and he has had his maintenance inhaler change a few months ago. Patient also recounts that he has had his antiplatelet agent changed to Brilinta from Plavix. Despite being short of breath his oxygen saturations were in good condition in the field, and EKG by EMS did not show any acute currents of injury and his initial troponin was unremarkable. Patient had elevated d-dimer went for CT angiogram without pulmonary embolism with with mild interstitial edema and he was given a dose of intravenous Lasix. I personally spoke with Dr. Garrett Ahumada who performed his intervention in October given the details of the case and Dr. Ahumada will see him later this morning Allergies Allergy/AdvReac Type Severity Reaction Status Date / Time No Known Allergies Allergy Unverified 03/10/19 06:43 Home Medications Home Medications Medication Instructions Recorded Confirmed Type Dulera 2 inha INH BID #8.8 gm 03/10/19 Rx Order Awaiting Action 1 ea N/A BID #2 inh 03/10/19 Rx aspirin 81 mg PO HS 03/10/19 03/10/19 History atorvastatin 80 mg PO DAILY 03/10/19 03/10/19 History clopidogrel 75 mg PO QAM #90 tab 03/10/19 Rx lorazepam 0.5 mg PO Q12H PRN #7 tab 03/10/19 Rx mometasone-formoterol [Dulera] 2 puffs INH BID #13 gm 03/10/19 Rx temazepam 7.5 mg PO HS PRN 03/10/19 03/10/19 History Past Med/Surg History Medical History Acute myocardial infarction (Acute) Elevated troponin (Acute) ST elevation myocardial infarction (STEMI) of inferior wall COPD (chronic obstructive pulmonary disease) (Chronic) Acute bronchitis (Acute) Acute sinusitis (Acute) Shortness of breath (Acute) GERD (gastroesophageal reflux disease) Osteoarthritis Surgical History H/O heart artery stent Family History Other Family history non-contributory Hypertension Social History Preferred Language: Iranian Communication Ability: Effective Voice Over Artist Required: No Beliefs That Will Affect Care: None marital status: Current Living Situation: Spouse Current Living Situation Comment: in an apartment current occupational status: retired Other Information That Helps Us Care for You: No Feels Safe at Home: Yes Safety Concerns: Feels Safe At This Time Smoking Status: Former smoker Hx Alcohol Use: Yes Alcohol type: beer Hx Substance Use: No Review of Systems Review of Systems: ROS: well nourished well developed. No double vision blurry vision No problems with speech or swallowing No palpitations, 2 separate chest discomforts 1 substernal 1 inferior and more the epigastric region. Both pressure type sensation As per HPI complain of feeling short of breath with associated chest discomfort No abdominal pain he did have mild nausea without vomiting No burning urine urine frequency or changes in color No focal joint pain or muscle pain No skin rashes or oral lesions No unusual bruising or bleeding No focused back pain or numbness or loss of strength No changes in memory or confusion Physical Exam Physical Exam: The patient appeared well nourished and normally developed. Vital signs as documented. Head exam is unremarkable. normocephalic, atraumatic Neck is without jugular venous distension, thyromegaly, or lymphademopathy Lungs are clear to auscultation without focal air loss or wheezing Cardiac exam reveals Rhythm is regular. First and second heart sounds normal. Abdominal exam reveals normal bowel sounds, no masses, no organomegaly Extremities are his right leg is chronic edema he says this is been there for years and cannot relate an event that preceded it. He has no inguinal lymphadenopathy on the right this is 1-2+ pitting edema on the left has trace edema and both pedal pulses are present Neurologic exam is A&Ox3, no focal deficits, strength is equal bilateral Psychologically seems very anxious Skin is warm Dry without bruises or lesions Results & Data Vital Signs (Past 12 Hours) Vital Signs Temp Pulse Pulse Resp BP BP Pulse Ox 03/10/19 07:46 70 18 171/69 H 96 03/10/19 07:00 66 16 199/95 H 95 03/10/19 06:14 98 03/10/19 06:13 98 03/10/19 05:53 37.5 C 74 28 H 189/[address] angiogram with a pulmonary embolism minor pulmonary interstitial edema chest x-ray also with only mild changes EKG normal sinus rhythm without acute ST or T wave changes PG Care Time/CCT Total # of Minutes Spent Total Time Spent with Patient: Total time spent is greater than 50% in coordination of care (as documented) at patient's floor/unit and/or counseling patient:
[2019-03-10] MEDS ORDERED: HydrALAZINE HCL 20 MG/ML VIAL IV PRN (08:52)
[2019-03-10] MEDS ORDERED: MoRPHine SULFATE 2 MG/ML CARP IV PRN (08:52)
[2019-03-10] MEDS ORDERED: ONDANSETRON INJ 2 MG/ML 2 ML VIAL IV PRN (08:52)
[2019-03-10] MEDS ORDERED: ACETAMINOPHEN 325 MG TAB PO PRN (08:52)
[2019-03-10] MEDS ORDERED: LORazepam 0.5 MG/1 ML VIAL IV PRN (08:52)
[2019-03-10] MEDS ORDERED: ALUMINUM/MAGNESIUM SUSP 30 ML UDC PO PRN (08:52)
[2019-03-10] MEDS ORDERED: METOPROLOL TARTRATE 1 MG/ML VIAL IV PRN (08:52)
[2019-03-10] MEDS ORDERED: ALBUT/IPRATROP 3MG/0.5MG NEB 3 ML VIAL NEB PRN (08:52)
[2019-03-10] MEDS ORDERED: ATORVASTATIN 40 MG TAB PO SCH (09:00)
[2019-03-10] MEDS ORDERED: LISINOPRIL 5 MG TAB PO SCH (09:00)
[2019-03-10] MEDS ORDERED: TICAGRELOR 90 MG TAB PO SCH (09:00)
[2019-03-10] MEDS ORDERED: METOPROLOL TARTRATE 25 MG TAB PO SCH (09:00)
[2019-03-10] MEDS ORDERED: FUROSEMIDE 20 MG in SYRINGE 0 ML IV ONE (09:30)
[2019-03-10 09:40] LABS: INR 1.1 (0.9-1.1); Prothrombin Time 11.2 Seconds (9.0-12.0)
--- NOTE | 2019-03-10 09:56 | Cardiology Consultation ---
Date of Consultation March 10, 2019 Assessment & Plan (1) Substernal chest pain: 2. CAD with prior inferior GA 3. Multivessel non-obstructive disease 10/2018 4. COPD 5. HTN 6. Anxiety New exertional dyspnea over last 3 days with acute chest/abdominal pressure waking from sleep this morning. Initial troponin/ECG unremarkable and suspicion for stent thrombosis low. Still with patient's history and patient's residual coronary disease suspicion for ACS remains elevated. Discussed options for further risk stratification including stress vs repeat cath. Patient/family preference to proceed with cath which feel is reasonable. Please keep NPO. Will plan to do around noon today. If cath unchanged would plan to transition back to plavix and d/c brillanta. History of Present Illness Attending Physician: Leobardo Minaya MD History of Present Illness Mr. Freire is a 78 year old man with a history of CAD post inferior AMI 10/2018 post PCI with DARWIN, moderate non-culprit CAD, preserved LVEF readmitted in the setting of chest pain. Patient had been doing well as recently as 1 week ago when see in our office. Today family states that over the last 3 days has been increasingly SOB with minimal exertion. This morning woke up around 2AM with chest/abd pressure, shortness of breath, ?diaphoresis. Denies kenney chest pain consistent with prior GA. Of note patient recently restarted brillanta replacing plavix taking 1st dose last night. On admission, O2 sats normal, ECG unremarkable and initial troponin negative. Elevated ddimer but CTA negative for PE. Question mild congestion and received IV lasix. BNP low. Upon arrival to room still with intermittent chest/abdomianl pressure, and anxious. Allergies Allergy/AdvReac Type Severity Reaction Status Date / Time No Known Allergies Allergy Unverified 03/10/19 06:43 Home Medications Home Medications Medication Instructions Recorded Confirmed Type albuterol sulfate [Ventolin HFA] 2 puff INHALATION Q6H PRN 30 Days 11/11/18 03/10/19 Rx #6.7 gm lisinopril [Zestril] 5 mg PO QAM 30 Days #30 tab 11/11/18 03/10/19 Rx metoprolol tartrate 25 mg PO BID 30 Days #60 tab 11/11/18 03/10/19 Rx mometasone-formoterol [Dulera] 2 inha INH BID #8.8 gm 11/11/18 03/10/19 Rx ticagrelor [Brilinta] 90 mg PO BID 30 Days #60 tab 11/11/18 03/10/19 Rx aspirin 81 mg PO HS 03/10/19 03/10/19 History atorvastatin 80 mg PO DAILY 03/10/19 03/10/19 History fluticasone propion-salmeterol 1 inh INHALATION BID 03/10/19 03/10/19 History [Wixela Inhub] temazepam 7.5 mg PO HS PRN 03/10/19 03/10/19 History Patient History Medical History Acute myocardial infarction (Acute) Elevated troponin (Acute) ST elevation myocardial infarction (STEMI) of inferior wall COPD (chronic obstructive pulmonary disease) (Chronic) Acute bronchitis (Acute) Acute sinusitis (Acute) Shortness of breath (Acute) GERD (gastroesophageal reflux disease) Osteoarthritis Surgical History H/O heart artery stent Family History Other Family history non-contributory Hypertension Social History Preferred Language: Greenlandic Communication Ability: Effective Interactive Media Marketing Strategist Required: No Beliefs That Will Affect Care: None marital status: Current Living Situation: Spouse Current Living Situation Comment: in an apartment current occupational status: retired Other Information That Helps Us Care for You: No Feels Safe at Home: Yes Safety Concerns: Feels Safe At This Time Smoking Status: Former smoker Hx Alcohol Use: Yes Alcohol type: beer Hx Substance Use: No Review of Systems Review of Systems: All systems reviewed & are unremarkable except as noted in HPI & below Physical Exam Constitutional: well developed anxious Eyes: + anicteric sclerae Respiratory: normal respiratory effort, lungs clear to auscultation Cardiovascular: Rate/Rhythm: regular rate Heart Sounds: no murmur Vessels: radial pulses present; no JVD Extremities: no edema Gastrointestinal (Abdomen): Inspection/Auscultation: normal bowel sounds; abdomen not distended Skin: no rashes, warm and dry Neurologic: moves all extremities Psychiatric: Orientation: alert and oriented x 3 Mood: + anxious mood Results & Data Vital Signs (Past 12 Hours) Vital Signs Temp Pulse Pulse Resp BP BP Pulse Ox 03/10/19 09:10 68 03/10/19 08:58 36.4 C L 62 20 163/85 H 94 03/10/19 07:46 70 18 171/69 H 96 03/10/19 07:00 66 16 199/95 H 95 03/10/19 06:14 98 03/10/19 06:13 98 03/10/19 05:53 37.5 C 74 28 H 189/64 H 98
[2019-03-10] MEDS ORDERED: MIDAZOLAM HCL 1 MG/ML 2ML VIAL ONE (12:16)
[2019-03-10] MEDS ORDERED: fentaNYL citrate 100 MCG/2 ML VIAL ONE (12:17)
[2019-03-10] MEDS ORDERED: HEPARIN (PORCINE) 1000 UNIT/ML 10 ML (CATH LAB USE ONLY) ONE (12:17)
[2019-03-10] MEDS ORDERED: NiCARDipine HCL INJ 2.5 MG/ML 10 ML AMP ONE (12:17)
[2019-03-10] MEDS ORDERED: NITROGLYCERIN/D5W 100MCG/ML 20ML SYR ONE (12:17)
[2019-03-10] MEDS ORDERED: CLOPIDOGREL BISULFATE 75 MG TAB ONE (13:33)
[2019-03-10] MEDS ORDERED: SODIUM CHLORIDE 0.9% 1000ML 750 ML IV SCH (14:15)
--- NOTE | 2019-03-10 14:24 | Pre Anesthesia Assessment ---
Date of Service March 10, 2019 Pre Sedation Assessment Vital Signs Temp Pulse Pulse Resp BP BP BP 03/10/19 14:06 36.3 C L 67 19 129/67 03/10/19 11:19 36.4 C L 73 18 155/68 H 03/10/19 10:08 68 164/76 H 03/10/19 09:10 68 03/10/19 08:58 36.4 C L 62 20 163/85 H 03/10/19 07:46 70 18 171/69 H 03/10/19 07:00 66 16 199/95 H 03/10/19 06:14 03/10/19 06:13 03/10/19 05:53 37.5 C 74 28 H 189/64 H Pulse Ox 03/10/19 14:06 91 03/10/19 11:19 94 03/10/19 10:08 03/10/19 09:10 03/10/19 08:58 94 03/10/19 07:46 96 03/10/19 07:00 95 03/10/19 06:14 98 03/10/19 06:13 98 03/10/19 05:53 98 Cardiovascular RRR, no murmur, no edema Respiratory normal respiratory effort, lungs clear to auscultation Pre-Sedation Airway Assessment Smoking Status: Former smoker Hx Sleep Apnea: No Hx Difficult Intubation: No Short, Thick Neck: No Thyromental Distance: > or= 3.5 Finger Breadths Oral Cavity: + Dentures Mallampati Class: IV ASA: ASA3 NPO Status Date of Last Intake of Fluids: 03/09/19 Time of Last Intake of Fluids: 11:30 Date of Last Intake of Solid Food: 03/09/19 Time of Last Intake of Solid Foods: 11:30 Procedure Planning Contraindications for Sedation: none Current Medications Reviewed: Yes Notes The planned sedation has been discussed with the patient. Informed Consent was obtained. I have identified the patient, determined the appropriateness of sedation and have assessed the patient immediately prior to the procedure. All medicine(s) and interventions are by my order.
--- NOTE | 2019-03-10 14:26 | Post Anesthesia Assessment ---
Date of Service March 10, 2019 Post Sedation Assessment Vital Signs Temp Pulse Pulse Resp BP BP BP 03/10/19 14:06 36.3 C L 67 19 129/67 03/10/19 11:19 36.4 C L 73 18 155/68 H 03/10/19 10:08 68 164/76 H 03/10/19 09:10 68 03/10/19 08:58 36.4 C L 62 20 163/85 H 03/10/19 07:46 70 18 171/69 H 03/10/19 07:00 66 16 199/95 H 03/10/19 06:14 03/10/19 06:13 03/10/19 05:53 37.5 C 74 28 H 189/64 H Pulse Ox 03/10/19 14:06 91 03/10/19 11:19 94 03/10/19 10:08 03/10/19 09:10 03/10/19 08:58 94 03/10/19 07:46 96 03/10/19 07:00 95 03/10/19 06:14 98 03/10/19 06:13 98 03/10/19 05:53 98 Recovery Score Activity: Moves 4 extremities Respiration: Deep Breath/Cough Circulation: +/-20% PreAnes Value Consciousness: Fully Awake Oxygen Saturation: O2 needed for >90% Discharge Sedation Level of Care: Fast Track Phase II Post Sedation Plan On clinical assessment, the patient appears to have tolerated the sedation without complications. Patient is recovering as anticipated. Patient will continue to be monitored by nursing and may be discharged when sedation discharge criteria are met per below protocol. Upon Completions of procedure and additional 15 minutes continue every 5 minute vital signs and the P.A.R. score; then discharge to a Phase I or Fast Track to Phase II per the following guidelines: * Discharge Patient to appropriate Phase II area if PAR is 8 or greater or return to pre- procedure baseline. The post - procedure orders will be as directed. * If PAR score is less than 8 or not return to pre-procedure baseline then patient will follow Phase I monitoring till PAR is reached for Phase II. The Phase I may be done in procedure room or may call to secure a Phase I area. * If naloxone or flumazenil are used for reversal, hold in Phase I for continued monitoring from when last reversal dose was given for a minimum of 60 minutes or longer pending the nurse and/or physician discretion of patient condition before discharge to Phase II. Please call the Sedation Physician to re-evaluate and complete post-note for discharge to Phase II area. Do NOT discharge from procedure sedation or Phase 1 until post- sedation evaluation note is complete by procedure /sedation MD Sedation Discharge Instructions to be given to the patient at discharge to home.
--- NOTE | 2019-03-10 14:35 | Cardiac Catheterization ---
Cardiac Cath Procedure Full Procedure Date March 10, 2019 Pre-Procedure Diagnosis Pre-Procedure Diagnosis: Angina and Cardiothoracic Symptom AUC Score AUC Score: 7 Post-Procedure Diagnosis Post-Procedure Diagnosis: Moderate CAD Procedure(s) Performed Procedure(s) Performed: Coronary Angiography and Left Heart Cath Heavy Equipment Operator Robert Ahumada MD Estimated Blood Loss Estimated Blood Loss: 5 Medication(s) Medication(s): Clopidogrel, Fentanyl, Heparin, Lidocaine 1%, Nicardipine, Nitroglycerin and Versed Summary of Findings Indication: Chest pain, possible ACS. History of coronary disease post prior inferior WI Access: 6Fr slender right radial artery Catheters: Bath Findings: LM -angiographically normal LAD -moderate caliber vessel, wraps around apex. 40-50% eccentric latemid focal stenosis at take-off of 2nd diagonal. Distal vessel with luminal irregularities. Small second diagonal with 60% ostial, 60-70% proximal steno sis. Circumflex -moderate caliber vessel, diffuse 50% mid segment disease across takeoff of OM1, distal segment ectatic at takeoff of OM 2. Moderate caliber OM1 30% ostial. Small OM 2 with 99% mid segment and GI II flow distally. Small distal circumflex into left PLB with 60% stenosis RCA -dominant, moderate caliber vessel, 40% mid segment stenosis, distal stent widely patent. Right PDA with luminal irregularities LVEDP - 14 Arterial Closure: TR Band Summary: 1. Moderate non-obstructive coronary artery disease in major epicardial vessels (disease unchanged from 10/2018). -Widely patent distal RCA stent 40-50% mid LAD at takeoff of small second diagonal with 70% ostial stenosis 40 to 50% mid circumflex Subtotal occlusion of small OM 2 2. 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
[2019-03-10] MEDS ORDERED: MICONAZOLE NITRATE POWDER 43 GM EXT SCH (21:00)
[2019-03-10] MEDS ORDERED: HEPARIN SOD 5,000 UNIT/0.5 ML VIAL SQ SCH (21:00)
[2019-03-10] MEDS ORDERED: ASPIRIN 81 MG ECTAB PO SCH (21:00)
[2019-03-11] MEDS ORDERED: CLOPIDOGREL BISULFATE 75 MG TAB PO SCH (09:00)
--- NOTE | 2019-03-11 15:50 | Discharge Summary ---
Date of Service March 10, 2019 Admission HPI Per Admitting Provider 78-year-old male presents to the ER after being awoken from sleep with substernal chest pressure, associated shortness of breath, feelings of being flushed and nauseousness. The patient did not have any pain radiating to his neck arm or back. Patient is a known coronary artery disease patient having a heart alert in October with 2 drug-eluting stents placed in his right coronary artery. At that time his ejection fraction was preserved and he only had mild 30 to 40% disease in his other coronary vasculature. Family notes over the last 3 to 4 days the patient's had increasing dyspnea on exertion sometimes with cyanotic lips and increasing fatigue. Patient also suffers from COPD and he has had his maintenance inhaler change a few months ago. Patient also recounts that he has had his antiplatelet agent changed to Brilinta from Plavix. Despite being short of breath his oxygen saturations were in good condition in the field, and EKG by EMS did not show any acute currents of injury and his initial troponin was unremarkable. Patient had elevated d-dimer went for CT angiogram without pulmonary embolism with with mild interstitial edema and he was given a dose of intravenous Lasix. I personally spoke with Dr. Garrett Elizondo who performed his intervention in October given the details of the case and Dr. Elizondo will see him later this morning Principal Diagnosis non cardiac chest pain anxiety Discharge Exam Constitutional well developed and average body habitus Eyes no conjunctival abnormality and no scleral abnormality Neck normal visual inspection and trachea midline Respiratory normal respiratory effort; no respiratory distress Auscultation: lungs clear to auscultation bilaterally Cardiovascular RRR, no murmur, no edema Gastrointestinal (Abdomen) normal bowel sounds, soft, nontender, no hepatosplenomegaly Musculoskeletal no cyanosis or clubbing, extremities motor strength 5/5 Discharge Data Allergies Allergy/AdvReac Type Severity Reaction Status Date / Time No Known Allergies Allergy Unverified 03/10/19 06:43 Consultations 03/10/19 08:52 Consult Cardiology Routine Procedures Performed Operation Date: 03/10/19 12:00 Actual Procedures p Cath, Left with Cors and Vent - Yovanny Elizondo MD s Cineradiography w/Routine Exam - Yovanny Elizondo MD Ordered Studies 03/10/19 07:20 CT angio chest PE protocol Stat 03/10/19 12:25 CL Cath Imgs for PACS use only Routine Hospital Course (1) Substernal chest pain: Pt had a left heart catheterization without progression of disease or culprit lesion Patient maintained on home medications including dual antiplatelet therapy lisinopril metoprolol atorvastatin, Dr elizondo recommended continuing plavix in stead of brillinta (2) COPD (chronic obstructive pulmonary disease): Patient feels his Dulera was changed as an outpatient he does not feel that the new inhaler is doing as good, he wished to continue his Dulera at time of discharge a Rx was given (3) Hypertension: As mentioned the patient takes medications for his cardiac risk stratification reduction he will be maintained on his metoprolol lisinopril (4) Anxiety: Patient will have PRN lorazepam Rx but encouraged to speak to pcp regarding better termite treater therapy Total Time Total Time Spent Total Time Spent (In Minutes): greater than 30 minutes were required to prepare discharge Discharge Plan Discharge Items Patient Disposition: Home - Self-Care Reason For Visit: CHEST PRESSURE Discharge Diagnosis: non cardiac chest pain Discharge Goals: Decrease discomfort and Diagnostic testing Activity: Resume your previous activity Non-emergency contact: Primary Care Provider and Logging Tractor Operator Call non-emergency contact if: you have any medication questions Follow-up/Referrals: Clara Reyez PA-C [Physician Rip/Mould Operator] - 04/01/19 1:00 pm (follow up appointment at the lung doctor office with the physician speech language pathologist assistant) Swati Mustafa CRNP [Primary Care Provider] - 03/12/19 10:10 am (follow up appointment at your primary care physician office with Dr. Carias) Diet: Regular Addtl Provider Instructions: please do not eat at least 2 hours before you sleep please follow up with Armand MALLOY in pulmonary medicine Prescriptions: New clopidogrel 75 mg Tablet 75 mg PO QAM Qty: 90 RF: 3 Order Awaiting Action 1 ea N/A BID Qty: 2 RF: 3 lorazepam 0.5 mg tablet 0.5 mg PO Q12H PRN (Reason: anxiety) Qty: 7 RF: 0 Dulera 100-5 mcg/actuation HFA aerosol inhaler 2 puffs INH BID Qty: 13 RF: 6 Continued aspirin 81 mg Tablet,Delayed Release (Dr/Ec) 81 mg PO HS RF: 0 atorvastatin 80 mg tablet 80 mg PO DAILY RF: 0 temazepam 7.5 mg capsule 7.5 mg PO HS PRN (Reason: Sleep) RF: 0 Dulera 200-5 mcg/actuation HFA aerosol inhaler 2 inha INH BID Qty: 8.8 RF: 3 Discontinued Brilinta 90 mg Tablet 90 mg PO BID 30 Days Qty: 60 RF: 3 fluticasone propion-salmeterol [Wixela Inhub] 250-50 mcg/dose blister with device 1 inh inhalation BID RF: 0 Stand-Alone Forms: [facility] Discharge Orders: Discharge Order (Routine); Ordered 03/10/19 Ordered By: Leobardo Minaya Admission Data Admit Date/Time: 03/10/19 07:20 Attending Provider: Leobardo Minaya Admit Provider: Leobardo Minaya Primary Care Provider: Swati Mustafa Other Providers: Yovanny Elizondo Service: Telemetry Other Interventions: Discharge Summary Assessment (RN) Last Done: 03/10/19 17:00 DC Date/Time DO NOT enter until pt leaves facility: 03/10/19 17:49
== END 2019-03-10 17:49 | disposition home or self-care (01) ==
LOC: ED 05:52 → 2S 05:52

== ENCOUNTER 2019-12-07 17:43 | Inpatient (IN) ==
[2019-12-07] MEDS ORDERED: SODIUM CHLORIDE 0.9% 1000ML 1,000 ML IV SCH (18:00)
--- NOTE | 2019-12-07 18:00 | Emergency Department Note ---
History of Present Illness General Chief complaint: Illness Stated complaint: VOMITING, DIFF. AMBULATING, DECREASE APPETITE Time Seen by Provider: 12/07/19 17:45 Source: patient Mode of arrival: EMS Limitations: other (hard of hearing) History of Present Illness Provider complaint: cough, vomiting, diarrhea Onset (ago): week(s) 1 Severity: moderate Associated symptoms: + cough, + fever/chills, + loss of appetite, + nausea/vomiting and + shortness of breath This is an 79-year-old male from home who presents with worsening symptoms over the last week. Patient and family state he has not been feeling well for several weeks, however over the past week he has had a worsening cough, decreased appetite, increased fatigue, and in the last 2 days nausea, vomiting, and diarrhea. Patient denies any chest pain or abdominal pain. Denies any blood in the emesis or stool. States that does not feel like when he previously had pneumonia. Patient does have a history of COPD but does not wear home oxygen. Patient's daughter was recently ill also. Patient states he did get a flu shot this year. No other recent travel or known sick contacts. No other change in medications. Patient does use home nebs. Patient states he is not been able to visualize any sputum with his productive cough. Patient also complains of pain in bilateral ears, right greater than left, and feels this pain extends down along his jawline. No difficulty swallowing. No sore throat. Patient denies sinus congestion or rhinorrhea. No recent travel, no known contact with a COVID positive patient. Home Medications Home Medications Medication Instructions Recorded Confirmed Type Dulera 2 puffs INH BID #13 gm 03/10/19 12/07/19 Rx aspirin 81 mg PO HS 03/10/19 12/07/19 History atorvastatin 80 mg PO DAILY 03/10/19 12/07/19 History clopidogrel 75 mg PO QAM #90 tab 03/10/19 12/07/19 Rx temazepam 7.5 mg PO HS 03/10/19 12/07/19 History albuterol sulfate 90 mcg/actuation 1 puffs INH Q6H PRN 05/20/19 12/07/19 History aerosol inhaler albuterol sulfate 2.5 mg CONTINUOUS NEBULIZATION Q6H 06/23/19 12/07/19 History PRN #60 ml lisinopril 5 mg tablet 5 mg PO QPM #90 tab 06/23/19 12/07/19 History pantoprazole 40 mg tablet,delayed 40 mg PO DAILY #30 tab 06/23/19 12/07/19 History release furosemide 20 mg tablet 20 mg PO DAILY #30 tab 08/25/19 12/07/19 Rx metoprolol tartrate 25 mg tablet 25 mg PO BID #30 tab 08/25/19 12/07/19 Rx ipratropium-albuterol 3 ml INH Q6H PRN 12/07/19 12/07/19 History lorazepam [Ativan] 0.5 mg PO Q12H PRN 12/07/19 12/07/19 History carbamide peroxide [Ear Drops 4 drp OTB DAILY #30 ml 12/08/19 Rx (carbamide peroxide)] levofloxacin 500 mg PO DAILY #6 tab 12/08/19 Rx prednisone 40 mg PO DAILY #10 tab 12/08/19 Rx Allergies Allergy/AdvReac Type Severity Reaction Status Date / Time No Known Allergies Allergy Verified 12/07/19 18:43 Past Med/Surg History Medical History (Updated 12/08/19 @ 18:13 by Mari Law DO) Acute bronchitis (Acute) Acute myocardial infarction (Acute) Acute sinusitis (Acute) CKD (chronic kidney disease) stage 3, GFR 30-59 ml/min COPD (chronic obstructive pulmonary disease) (Chronic) Elevated troponin (Acute) GERD (gastroesophageal reflux disease) Hypoxia Osteoarthritis Pulmonary nodule 9mm RUL initial ct 08/2019 Shortness of breath (Acute) ST elevation myocardial infarction (STEMI) of inferior wall Surgical History (Updated 12/08/19 @ 08:22 by Sarah Corbett MA) H/O heart artery stent History of lumbar discectomy History of palate surgery History of surgery U[place] Family History (Updated 12/08/19 @ 08:24 by Sarah Corbett MA) Mother Myocardial infarction Father Cancer Malignant Pancreatic Neoplasm Other Family history non-contributory Hypertension Social History Preferred Language: [place] Communication Ability: Effective Package Liner Required: No Beliefs That Will Affect Care: None marital status: Current Living Situation: Spouse Current Living Situation Comment: [employer] current occupational status: retired Other Information That Helps Us Care for You: No Feels Safe at Home: Yes Safety Concerns: Feels Safe At This Time Smoking Status: Former smoker (QUIT IN 2012) Tobacco Type: cigarettes, pipe and cigars ; Cigarettes Per Day: UP TO 100 ; Do You Dip or Chew Tobacco: No ; Smoking End Date: 2013 ; Hx Alcohol Use: Yes Alcohol type: beer Hx Substance Use: No Review of Systems See HPI for pertinent positives & negatives. and A total of 10 systems reviewed and were otherwise negative Physical Exam Vital Signs Vital Signs - 24 hr 12/07/19 18:10 12/07/19 18:11 12/07/19 18:15 Pulse Rate 71 72 Pulse Rate [Apical] Pulse Rate from SpO2 Sensor Pulse Rhythm [Apical] Pulse Strength [Apical] Respiratory Rate 23 25 H Respiratory Effort / Characteristics Respiratory Depth Blood Pressure Blood Pressure [Right Arm] Blood Pressure Mean Blood Pressure Mean [Right Arm] Pulse Oximetry 94 94 92 Oxygen Delivery Method Nasal Cannula Nasal Cannula Nasal Cannula Oxygen Flow Rate 3 4 4 12/07/19 18:20 12/07/19 18:21 12/07/19 18:30 Pulse Rate 73 72 74 Pulse Rate [Apical] Pulse Rate from SpO2 Sensor 73 73 74 Pulse Rhythm [Apical] Pulse Strength [Apical] Respiratory Rate 18 16 22 Respiratory Effort / Characteristics Respiratory Depth Blood Pressure 167/110 H 170/70 H Blood Pressure [Right Arm] Blood Pressure Mean 129 103 Blood Pressure Mean [Right Arm] Pulse Oximetry 90 89 L Oxygen Delivery Method Nasal Cannula Nasal Cannula Oxygen Flow Rate 4 4 12/07/19 18:31 12/07/19 18:39 12/07/19 18:45 Pulse Rate 75 78 Pulse Rate [Apical] 74 Pulse Rate from SpO2 Sensor 75 78 Pulse Rhythm [Apical] Pulse Strength [Apical] Respiratory Rate 23 18 22 Respiratory Effort / Characteristics Non-Labored Spontaneous Respiratory Depth Blood Pressure 167/70 H Blood Pressure [Right Arm] Blood Pressure Mean 110 Blood Pressure Mean [Right Arm] Pulse Oximetry 94 93 Oxygen Delivery Method Nasal Cannula Nasal Cannula Oxygen Flow Rate 4 4 12/07/19 18:46 12/07/19 19:46 12/07/19 20:07 Pulse Rate 78 Pulse Rate [Apical] 87 86 Pulse Rate from SpO2 Sensor 78 Pulse Rhythm [Apical] Regular Regular Pulse Strength [Apical] Normal Normal Respiratory Rate 20 22 22 Respiratory Effort / Characteristics Non-Labored Spontaneous Non-Labored Respiratory Depth Normal Normal Blood Pressure Blood Pressure [Right Arm] 179/76 H 175/71 H Blood Pressure Mean Blood Pressure Mean [Right Arm] 110 105 Pulse Oximetry 94 92 93 Oxygen Delivery Method Nasal Cannula Nasal Cannula Nasal Cannula Oxygen Flow Rate 4 4 4 GENERAL: alert, well appearing, well nourished, no distress, non-toxic EARS: Left TM obscured by cerumen, right TM with chronic appearing scarring and partial cerumen obstruction. No mastoid tenderness with percussion. No other facial swelling noted. EYE EXAM: normal conjunctiva, PERRL and EOM's grossly intact OROPHARYNX: no exudate, no erythema, lips, buccal mucosa, and tongue normal and mucous membranes are moist NECK: supple, no nuchal rigidity, no adenopathy, non-tender LUNGS: Clear to auscultation. Normal chest wall mechanics, no w/r/r, coarse coug h noted during exam, no increased work of breathing, room air pulse ox 88%. HEART: no murmurs, S1 normal and S2 normal ABDOMEN: abdomen soft, non-tender, normo-active bowel sounds, no masses, no rebo und or guarding. BACK: Back is symmetrical on inspection and there is no deformity, no midline tenderness, no CVA tenderness. SKIN: no rashes and no bruising UPPER EXTREMITIES: upper extremities are grossly normal. FROM, nml pulses b/l. LOWER EXTREMITIES: No pitting edema. FROM, nml pulses b/l. NEURO EXAM: Normal sensorium, cranial nerves II-XII grossly intact, normal speech, no gross weakness of arms, no gross weakness of legs. Gross sensation intact. No facial droop. Course Course 1909: Patient states feeling slightly better with nebulizer treatment. Family at bedside now relates over the last 5 months or so patient has had increased symptoms of sinus congestion. He was originally set up with an appointment for an ear nose and throat doctor, however this was postponed due to the current coronavirus pandemic. Patient has had prior antibiotics for presumed sinusitis over the last5-6 months. 1919: Case discussed with Dr. Cobb. Administered Medications Albuterol (Duoneb) 3 ml NEB QIDR MARCELINO Stop: 01/07/20 06:59 Last Admin: 12/08/19 15:04 Dose: 3 ml Documented by: [id number] Admin: 12/08/19 11:07 Dose: 3 ml Documented by: [id number] Admin: 12/08/19 07:08 Dose: 3 ml Documented by: [id number] Aspirin (Ecotrin Ectab) 81 mg PO HS MARCELINO Stop: 01/06/20 21:59 Last Admin: 12/07/19 22:50 Dose: 81 mg Documented by: [id number] Atorvastatin Calcium (Lipitor) 80 mg PO DAILY MARCELINO Stop: 01/07/20 08:59 Last Admin: 12/08/19 07:24 Dose: 80 mg Documented by: [id number] Budesonide (Pulmicort Respules) 0.5 mg NEB BIDR MARCELINO Stop: 01/07/20 06:59 Last Admin: 12/08/19 07:08 Dose: 0.5 mg Documented by: [id number] Carbamide Peroxide (Earwax Removal Soln) 4 drops OTB DAILY MARCELINO Stop: 12/12/19 11:59 Last Admin: 12/08/19 12:26 Dose: 4 drops Documented by: [id number] Clopidogrel Bisulfate (Plavix) 75 mg PO QAM MARCELINO Stop: 01/07/20 08:59 Last Admin: 12/08/19 07:25 Dose: 75 mg Documented by: [id number] Guaifenesin (Mucinex) 600 mg PO Q12 MARCELINO Stop: 01/06/20 21:59 Last Admin: 12/08/19 07:24 Dose: 600 mg Documented by: [id number] Admin: 12/07/19 22:50 Dose: 600 mg Documented by: [id number] Heparin Sodium (Porcine) (Heparin Sodium (Porcine)) 5,000 units SQ Q12 MARCELINO Stop: 01/06/20 21:59 Last Admin: 12/08/19 07:24 Dose: 5,000 units Documented by: [id number] Cosigned by: [id number] Admin: 12/07/19 22:49 Dose: 5,000 units Documented by: [id number] Cosigned by: [id number] Methylprednisolone 40 mg/ (Syringe) 0.64 mls @ 1.5 mls/min IV Q8H MARCELINO Stop: 01/07/20 03:59 Last Admin: 12/08/19 11:21 Dose: 1.5 mls/min Documented by: [id number] Admin: 12/08/19 04:06 Dose: 1.5 mls/min Documented by: [id number] Metoprolol Tartrate (Lopressor) 25 mg PO BID MARCELINO Stop: 04/22/20 21:59 Last Admin: 12/08/19 07:24 Dose: 25 mg Documented by: [id number] Admin: 12/07/19 22:50 Dose: 25 mg Documented by: [id number] Pantoprazole Sodium (Protonix) 40 mg PO DAILY MARCELINO Stop: 01/07/20 08:59 Last Admin: 12/08/19 07:24 Dose: 40 mg Documented by: [id number] Temazepam (Restoril) 7.5 mg PO HS MARCELINO Stop: 01/06/20 21:59 Last Admin: 12/07/19 22:50 Dose: 7.5 mg Documented by: [id number] Discontinued Medications Albuterol (Duoneb) 3 ml INH NOW STA Stop: 12/07/19 18:27 Last Admin: 12/07/19 18:35 Dose: 3 ml Documented by: [id number] Sodium Chloride (Nss 1000ml) 1,000 mls @ 150 mls/hr IV .Q6H40M MARCELINO Stop: 01/06/20 17:59 Last Infusion: 12/07/19 21:30 Dose: 0 mls/hr Documented by: [id number] Infusion: 12/07/19 20:07 Dose: 0 mls/hr Documented by: [id number] Admin: 12/07/19 18:17 Dose: 150 mls/hr Documented by: [id number] Levofloxacin/Dextrose (Levaquin/D5w) 750 mg in 150 mls @ 100 mls/hr IV NOW STA Stop: 12/07/19 20:22 Last Infusion: 12/07/19 20:39 Dose: 0 mls/hr Documented by: [id number] Admin: 12/07/19 19:06 Dose: 100 mls/hr Documented by: [id number] Lorazepam (Ativan) 0.25 mg in 0.5 mls @ 0.5 mls/min IV NOW STA Stop: 12/07/19 19:39 Last Admin: 12/07/19 19:44 Dose: 0.5 mls/min Documented by: [id number] Furosemide 40 mg/ Syringe 4 mls @ 4 mls/min IV NOW ONE Stop: 12/07/19 22:31 Last Admin: 12/07/19 22:50 Dose: 4 mls/min Documented by: [id number] Methylprednisolone (Solumedrol) 60 mg IV NOW STA Stop: 12/07/19 18:54 Last Admin: 12/07/19 19:07 Dose: 60 mg Documented by: [id number] Ondansetron HCl (Zofran) 4 mg IV NOW STA Stop: 12/07/19 18:07 Last Admin: 12/07/19 18:17 Dose: 4 mg Documented by: [id number] Medical Decision Making Differential Diagnosis Gastroenteritis, food borne illness, infections, appendicitis, diverticulitis, inflammatory bowel disease, obstruction, GI bleed, biliary pathology, volvulus, pneumonia, bronchitis, COPD/Asthma exacerbation, pneumothorax, pulmonary embolism, congestive heart failure, acute coronary syndrome, as well as other pathology was considered. Medical Records Attestation: I reviewed the patient's medical records. Home Medications Current Medication List: was personally reviewed by me Laboratory Data Attestation: I reviewed the patient's lab results. Result diagrams: 12/08/19 05:50 12/08/19 05:50 Lab Results 12/07/19 12/07/19 12/07/19 Range/Units 18:07 18:17 18:17 WBC 7.46 (4.8-10.8) K/uL RBC 4.12 L (4.7-6.1) M/uL Hgb 11.1 L (14.0-18.0) g/dL Hct 35.1 L (42-52) % MCV 85.2 (80-100) fL MCH 26.9 (25-34) pg MCHC 31.6 L (32-36) g/dL RDW Std Deviation 53.0 H (36.4-46.3) fL RDW Coeff of Mario 17.0 H (11.5-14.5) % Plt Count 212 (130-400) K/uL MPV 9.3 (7.4-10.4) fL Immature Gran % (Auto) 0.4 % Neut % (Auto) 78.3 % Lymph % (Auto) 13.1 % [place] % (Auto) 7.2 % Eos % (Auto) 0.9 % Baso % (Auto) 0.1 % Immature Gran # (Auto) 0.03 H (0.00-0.02) K/uL Neut # (Auto) 5.83 (1.4-6.5) K/uL Lymph # (Auto) 0.98 L (1.2-3.4) K/uL [place] # (Auto) 0.54 (0.11-0.59) K/uL Eos # (Auto) 0.07 (0-0.5) K/uL Baso # (Auto) 0.01 (0-0.2) K/uL PT (9.0-12.0) Seconds INR (0.9-1.1) APTT (21.0-31.0) Seconds PTT Ratio Sodium (136-145) mmol/L Potassium (3.5-5.1) mmol/L Chloride (98-107) mmol/L Carbon Dioxide (21-32) mmol/L Anion Gap (3-11) BUN (7-18) mg/dl Creatinine (0.6-1.4) mg/dl Est Cr Clr Drug Dosing ml/min Est GFR ( Amer) Est GFR (Non-Af Amer) BUN/Creatinine Ratio (10-20) Glucose (70-99) mg/dl Lactate (0.4-2.0) mmol/L Calcium (8.5-10.1) mg/dl Magnesium (1.8-2.4) mg/dl Total Bilirubin (0.2-1) mg/dl AST (15-37) U/L ALT (12-78) U/L Alkaline Phosphatase (45-117) U/L Troponin I (0-0.045) ng/ml Total Protein (6.4-8.2) gm/dl Albumin (3.4-5.0) gm/dl Globulin (2.5-4.0) gm/dl Albumin/Globulin Ratio (0.9-2) Procalcitonin 0.06 (0-0.5) ng/ml Influenza Type A (PCR) Neg for Influ A (Neg) Influenza Type B (PCR) Neg for Influ B (Neg) 12/07/19 12/07/19 12/07/19 Range/Units 18:17 18:17 18:17 WBC (4.8-10.8) K/uL RBC (4.7-6.1) M/uL Hgb (14.0-18.0) g/dL Hct (42-52) % MCV (80-100) fL MCH (25-34) pg MCHC (32-36) g/dL RDW Std Deviation (36.4-46.3) fL RDW Coeff of Mario (11.5-14.5) % Plt Count (130-400) K/uL MPV (7.4-10.4) fL Immature Gran % (Auto) % Neut % (Auto) % Lymph % (Auto) % [place] % (Auto) % Eos % (Auto) % Baso % (Auto) % Immature Gran # (Auto) (0.00-0.02) K/uL Neut # (Auto) (1.4-6.5) K/uL Lymph # (Auto) (1.2-3.4) K/uL [place] # (Auto) (0.11-0.59) K/uL Eos # (Auto) (0-0.5) K/uL Baso # (Auto) (0-0.2) K/uL PT 11.3 (9.0-12.0) Seconds INR 1.1 (0.9-1.1) APTT 29.3 (21.0-31.0) Seconds PTT Ratio 1.1 Sodium 138 (136-145) mmol/L Potassium 3.7 (3.5-5.1) mmol/L Chloride 109 H (98-107) mmol/L Carbon Dioxide 23 (21-32) mmol/L Anion Gap 6.0 (3-11) BUN 17 (7-18) mg/dl Creatinine 1.18 (0.6-1.4) mg/dl Est Cr Clr Drug Dosing 59.8 ml/min Est GFR ( Amer) 67.1 Est GFR (Non-Af Amer) 57.9 BUN/Creatinine Ratio 14.5 (10-20) Glucose 124 H (70-99) mg/dl Lactate 1.2 (0.4-2.0) mmol/L Calcium 8.6 (8.5-10.1) mg/dl Magnesium 2.1 (1.8-2.4) mg/dl Total Bilirubin 0.3 (0.2-1) mg/dl AST 24 (15-37) U/L ALT 29 (12-78) U/L Alkaline Phosphatase 163 H (45-117) U/L Troponin I < 0.015 (0-0.045) ng/ml Total Protein 7.9 (6.4-8.2) gm/dl Albumin 3.4 (3.4-5.0) gm/dl Globulin 4.5 H (2.5-4.0) gm/dl Albumin/Globulin Ratio 0.8 L (0.9-2) Procalcitonin (0-0.5) ng/ml Influenza Type A (PCR) (Neg) Influenza Type B (PCR) (Neg) Imaging Data Radiologist's Impression: XR chest 1V portable CLINICAL HISTORY: SEPSIS dyspnea COMPARISON STUDY: 09/26/2019 FINDINGS: Atelectatic change left base. Slight peribronchial thickening. No well-defined focal infiltrate. Mild stable cardiomegaly. IMPRESSION: 1. Mild platelike atelectasis left base. 2. Chronic parenchymal and mild peribronchial change. 3. No acute infiltrate. ACT 112: Negative or not required by law. The above report was generated using voice recognition software. It may contain grammatical, syntax or spelling errors. Electronically signed by: Kilo Reyes M.D. 12/07/2019 6:43 PM ECG Data Attestation: I personally reviewed and interpreted this ECG as follows: Indication: + SOB/dyspnea Rate (beats per minute): 69 Rhythm: + normal sinus ECG Intervals/blocks: + Normal QRS and + Normal QT-c ECG [place]: + Normal ECG ST segments: + Normal ST segments Comparison ECG Date: from (September 2019) Change: no significant change Blood Pressure Blood Pressure Findings: Elevated blood pressure Blood Pressure Disposition: further management by hospitalist BRE Narrative Patient here with concern for worsening illness complaining of cough, vomiting and diarrhea, bilateral ear pain. Patient states the ear pain has been going on for several months, the cough has been worsening over the last week, the vomiting diarrhea in the last couple of days. Patient found to be hypoxic with worsening cough on initial exam. Patient does not wear home O2. Patient improved here with nebulizer treatment and additional oxygen via nasal cannula. No focal infiltrate or evidence of acute pulmonary edema noted on chest x-ray, likely COPD exacerbation from initially viral etiology. Likely GI symptoms related to viral etiology also. Given daughter's eventual description of multiple antibiotics over the last 5 to 6 months, possibly related to recent antibiotic use. No elevated white blood cell count and patient denies frequent diarrhea, I feel C. difficile is less likely at this time. C. difficile ordered in case patient does have a bowel movement here. Discussed all results with patient and daughter bedside as well as importance of additional inpatient evaluation and treatment, they verbalized understanding were in agreement with plan. Case discussed with hospitalist. At this time I do not suspect bacteremia/sepsis. Possible patient with chronic effusion behind the right TM versus inadequately treated otitis media prior. Left TM completely obstructed by cerumen. Possible need for additional ENT evaluation for his ears. I do not suspect mastoiditis, S[employer] E[employer]IPMENT [employer] infection, dissection, acute sinusitis, facial cell ulitis, dental infection. Impression & Plan Dyspnea, Hypoxia, COPD exacerbation, Vomiting and diarrhea, Decreased hearing of both ears, Otalgia of both ears Discharge Plan Visit Data *Final* Discharge Date/Time: 12/07/19 21:13 Chief Complaint: Illness Stated Complaint: VOMITING, DIFF. AMBULATING, DECREASE APPETITE ED Provider: Mari Law Discharge Problem: Dyspnea, Hypoxia, COPD exacerbation, Vomiting and diarrhea, Decreased hearing of both ears, Otalgia of both ears Patient Disposition: Admitted As Inpatient Condition: Fair Discharge Instructions Interventions: ED Discharge Assessment Last Done: 12/07/19 21:13 Discharge Problem: Dyspnea Qualifiers: Dyspnea type: shortness of breath Qualified Code(s): R06.02 - Shortness of breath
[2019-12-07] MEDS ORDERED: ONDANSETRON INJ 2 MG/ML 2 ML VIAL IV STA (18:06)
[2019-12-07] MEDS ORDERED: IPRATROPIUM BROMIDE/ALBUTEROL respimat INH INH STA (18:19)
[2019-12-07] MEDS ORDERED: ALBUT/IPRATROP 3MG/0.5MG NEB 3 ML VIAL INH STA (18:26)
[2019-12-07 18:31] LABS: Basophils # (auto) 0.01 K/uL (0-0.2); Basophils % (auto) 0.1 %; Eosinophils # (auto) 0.07 K/uL (0-0.5); Eosinophils % (auto) 0.9 %; Hematocrit (blood only) 35.1 % (42-52); Hemoglobin 11.1 g/dL (14.0-18.0); Immature Granulocytes # (auto) 0.03 K/uL (0.00-0.02); Immature Granulocytes % (auto) 0.4 %; Lymphocytes # (auto) 0.98 K/uL (1.2-3.4); Lymphocytes % (auto) 13.1 %; Mean Corpuscular Hemoglobin 26.9 pg (25-34); Mean Corpuscular Hgb Conc 31.6 g/dL (32-36); Mean Corpuscular Volume 85.2 fL (80-100); Mean Platelet Volume 9.3 fL (7.4-10.4); Monocytes # (auto) 0.54 K/uL (0.11-0.59); Monocytes % (auto) 7.2 %; Neutrophils # (auto) 5.83 K/uL (1.4-6.5); Neutrophils % (auto) 78.3 %; Platelet Count 212 K/uL (130-400); Red Blood Count 4.12 M/uL (4.7-6.1); White Blood Count 7.46 K/uL (4.8-10.8)
[2019-12-07 18:41] LABS: INR 1.1 (0.9-1.1); Partial Thromboplastin Ratio 1.1; Partial Thromboplastin Time 29.3 Seconds (21.0-31.0); Prothrombin Time 11.3 Seconds (9.0-12.0)
[2019-12-07 18:44] LABS: Influenza A virus by PCR Neg for Influ A (Neg); Influenza B virus by PCR Neg for Influ B (Neg)
--- NOTE | 2019-12-07 18:44 | XRay Report ---
XR chest 1V portable CLINICAL HISTORY: SEPSIS dyspnea COMPARISON STUDY: 09/26/2019 FINDINGS: Atelectatic change left base. Slight peribronchial thickening. No well-defined focal infilt rate. Mild stable cardiomegaly. IMPRESSION: 1. Mild platelike atelectasis left base. 2. Chronic parenchymal and mild peribronchial change. 3. No acute infiltrate. ACT 112: Negative or not required by law. The above report was generated using voice recognition software. It may contain grammatical, syntax or spelling errors. Electronically signed by: Kilo Reyes M.D. 12/07/2019 6:43 PM
[2019-12-07 18:47] LABS: Alanine Aminotransferase 29 U/L (12-78); Albumin Level 3.4 gm/dl (3.4-5.0); Aspartate Aminotransferase 24 U/L (15-37); BUN Creatinine Ratio 14.5 (10-20); Blood Urea Nitrogen 17 mg/dl (7-18); Calcium 8.6 mg/dl (8.5-10.1); Carbon Dioxide 23 mmol/L (21-32); Chloride 109 mmol/L (98-107); Creatinine Clr Calc Pharmacy 59.8 ml/min; Est GFR (African American) 67.1; Est GFR (Non-African American) 57.9; Glucose 124 mg/dl (70-99); Magnesium 2.1 mg/dl (1.8-2.4); Potassium 3.7 mmol/L (3.5-5.1); Sodium 138 mmol/L (136-145)
[2019-12-07 18:52] LABS: Albumin Globulin Ratio 0.8 (0.9-2); Alkaline Phosphatase 163 U/L (45-117); Bilirubin,Total 0.3 mg/dl (0.2-1); Globulin 4.5 gm/dl (2.5-4.0); Total Protein 7.9 gm/dl (6.4-8.2); Troponin I < 0.015 ng/ml (0-0.045)
[2019-12-07] MEDS ORDERED: LEVOFLOXACIN/D5W 750 MG/150 ML BAG IV STA (18:53)
[2019-12-07] MEDS ORDERED: methylPREDNISolone 125 MG/2 ML VIAL IV STA (18:53)
[2019-12-07] MEDS ORDERED: LORazepam 0.25 MG/0.5 ML VIAL IV STA (19:38)
--- NOTE | 2019-12-07 20:32 | History & Physical Report ---
Date of Service December 07, 2019 Assessment & Plan (1) COPD exacerbation: COPD exacerbation/chronic bronchitis with hypoxia- Duonebs every 4 hours while awake and every 2 hours when necessary. Levofloxacin 500 mg IV daily Pulmicort Respules 0.5 mg inhaled twice daily Guaifenesin extended release 600 mg p.o. twice daily Methylprednisolone 40 mg IV every 8 hours Present on Admission?: Yes (2) Hypoxia: See above Present on Admission?: Yes (3) Abnormal EKG: Nonspecific ST-T changes laterally/history of STEMI- The patient will be admitted to telemetry for serial cardiac enzymes, serial EKG's, cardiac rhythm monitoring. Present on Admission?: Yes (4) Vomiting and diarrhea: Patient has been on several rounds of antibiotics for the past few months for his ears. We will check a stool for C. difficile Present on Admission?: Yes (5) Decreased hearing of both ears: Decreased hearing of both ears/otitis media on right/bilateral cerumen impaction, left greater than right. Bilateral ear irrigation while in the ED. Levaquin IV to cover potential pathogens Present on Admission?: Yes (6) Otitis media: See above. Present on Admission?: Yes (7) Impacted cerumen of both ears: See above. Present on Admission?: Yes (8) Hypertension: (9) Anxiety: Routinely takes Ativan twice daily at home, and will continue. Present on Admission?: Yes History of Present Illness Chief Complaint: The patient presents to the emergency department with complaint of shortness of breath, cough, fevers and chills and nausea and vomiting. Primary Care Provider: DEANA Lopez The patient is a an 79-year-old male with a past medical history including pulmonary nodule, hypertension, anxiety, STEMI, COPD, and bilateral hearing loss. He presents to the emergency department with symptoms began several weeks ago with worsening cough, shortness of breath, fatigue and decreased appetite. Over the past 2 days he is developed intermittent nausea vomiting and diarrhea. He has undergone treatment of the past months with several courses of antibiotics, without improvement in hearing discomfort with hearing loss. He has not had any recent travels or sick exposures. Allergies Allergy/AdvReac Type Severity Reaction Status Date / Time No Known Allergies Allergy Verified 12/07/19 18:43 Home Medications Home Medications Medication Instructions Recorded Confirmed Type aspirin 81 mg PO HS 03/10/19 12/07/19 History atorvastatin 80 mg PO DAILY 03/10/19 12/07/19 History clopidogrel 75 mg PO QAM #90 tab 03/10/19 12/07/19 Rx mometasone-formoterol [Dulera] 2 puffs INH BID #13 gm 03/10/19 12/07/19 Rx temazepam 7.5 mg PO HS 03/10/19 12/07/19 History albuterol sulfate 90 mcg/actuation 1 puffs INH Q6H PRN 05/20/19 12/07/19 History aerosol inhaler albuterol sulfate 2.5 mg CONTINUOUS NEBULIZATION Q6H 06/23/19 12/07/19 History PRN #60 ml lisinopril 5 mg tablet 5 mg PO QPM #90 tab 06/23/19 12/07/19 History pantoprazole 40 mg tablet,delayed 40 mg PO DAILY #30 tab 06/23/19 12/07/19 History release furosemide 20 mg tablet 20 mg PO DAILY #30 tab 08/25/19 12/07/19 Rx metoprolol tartrate 25 mg tablet 25 mg PO BID #30 tab 08/25/19 12/07/19 Rx ipratropium-albuterol 3 ml INH Q6H PRN 12/07/19 12/07/19 History lorazepam [Ativan] 0.5 mg PO Q12H PRN 12/07/19 12/07/19 History Past Med/Surg History Medical History Acute bronchitis (Acute) Acute myocardial infarction (Acute) Acute sinusitis (Acute) COPD (chronic obstructive pulmonary disease) (Chronic) Elevated troponin (Acute) GERD (gastroesophageal reflux disease) Hypoxia Osteoarthritis Pulmonary nodule 9mm RUL initial ct 08/2019 Shortness of breath (Acute) ST elevation myocardial infarction (STEMI) of inferior wall Surgical History H/O heart artery stent Family History Other Family history non-contributory Hypertension Social History Preferred Language: Bengali Communication Ability: Effective Lance 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 Required: No Beliefs That Will Affect Care: None marital status: Current Living Situation: Spouse Current Living Situation Comment: [employer] current occupational status: retired Other Information That Helps Us Care for You: No Feels Safe at Home: Yes Safety Concerns: Feels Safe At This Time Smoking Status: Former smoker Tobacco Type: cigarettes, pipe and cigars ; Cigarettes Per Day: 5ppd ; Do You Dip or Chew Tobacco: No ; Smoking End Date: 2013 ; Hx Alcohol Use: Yes Alcohol type: beer Hx Substance Use: No Review of Systems Review of Systems: The patient denies chest pain, palpitations, lower extremity swelling, sore throat, abdominal pain, pelvic pain, blood in urine or stool, dysuria, urinary frequency or urgency, lightheadedness, dizziness, headache, loss of consciousness, rash, abnormal bruising or bleeding, imbalance, focal weakness, numbness or tingling in arms or legs, generalized arthralgias or myalgias, back or neck pain, or night sweats. The review of systems is otherwise negative other than for that already noted above, and at least 10 systems have been reviewed. Physical Exam Physical Exam: The patient is awake, alert and oriented 3, hard of hearing, normocephalic and atraumatic, lying in bed and in no acute distress. HEENT--PERRL, EOMI, mucous membranes and oropharynx dry. TM on right with erythema and edema with canal three quarters occluded by cerumen. Left TM/ear canal completely occluded by cerumen Neck--supple. No JVD. No bruits. Thyroid normal, trachea midline, no adenopathy. Heart--normal S1 and S2. No murmurs, rubs or gallops. Lungs--few coarse breath sounds and wheezes bilaterally. No respiratory distress, no accessory muscle use. Abdomen--normal bowel sounds and soft. Nontender. Mildly distended and tympanitic. Extremities--no cyanosis or clubbing. 2+ bilateral pretibial pitting edema. Dermatologic--normal skin turgor, normal color, no abnormal lymph nodes, no rash. Neurologic--cranial nerves II through XII grossly intact. Rheumatologic--normal range of motion. Psychiatric--mildly anxious. Results & Data Vital Signs (Past 12 Hours) Vital Signs Temp Pulse Pulse Resp BP BP Pulse Ox 12/07/19 20:07 86 22 175/71 H 93 12/07/19 19:46 87 22 179/76 H 92 12/07/19 18:46 78 20 94 12/07/19 18:45 78 22 167/70 H 93 12/07/19 18:39 74 18 94 12/07/19 18:31 75 23 12/07/19 18:30 74 22 170/70 H 89 L 12/07/19 18:21 72 16 12/07/19 18:20 73 18 167/110 H 90 12/07/19 18:15 72 25 H 92 12/07/19 18:11 71 23 94 12/07/19 18:10 94 12/07/19 18:00 71 23 159/88 H 93 12/07/19 17:52 97.7 F 85 14 176/70 H 88 L Laboratory Results Laboratory Results WBC 7.46 K/uL (4.8-10.8) 12/07/19 18:17 RBC 4.12 M/uL (4.7-6.1) L 12/07/19 18:17 Hgb 11.1 g/dL (14.0-18.0) L 12/07/19 18:17 Hct 35.1 % (42-52) L 12/07/19 18:17 MCV 85.2 fL (80-100) 12/07/19 18:17 MCH 26.9 pg (25-34) 12/07/19 18:17 MCHC 31.6 g/dL (32-36) L 12/07/19 18:17 RDW Std Deviation 53.0 fL (36.4-46.3) H 12/07/19 18:17 RDW Coeff of Mario 17.0 % (11.5-14.5) H 12/07/19 18:17 Plt Count 212 K/uL (130-400) 12/07/19 18:17 MPV 9.3 fL (7.4-10.4) 12/07/19 18:17 Immature Gran % (Auto) 0.4 % 12/07/19 18:17 Neut % (Auto) 78.3 % 12/07/19 18:17 Lymph % (Auto) 13.1 % 12/07/19 18:17 Crisp % (Auto) 7.2 % 12/07/19 18:17 Eos % (Auto) 0.9 % 12/07/19 18:17 Baso % (Auto) 0.1 % 12/07/19 18:17 Immature Gran # (Auto) 0.03 K/uL (0.00-0.02) H 12/07/19 18:17 Neut # (Auto) 5.83 K/uL (1.4-6.5) 12/07/19 18:17 Lymph # (Auto) 0.98 K/uL (1.2-3.4) L 12/07/19 18:17 Crisp # (Auto) 0.54 K/uL (0.11-0.59) 12/07/19 18:17 Eos # (Auto) 0.07 K/uL (0-0.5) 12/07/19 18:17 Baso # (Auto) 0.01 K/uL (0-0.2) 12/07/19 18:17 PT 11.3 Seconds (9.0-12.0) 12/07/19 18:17 INR 1.1 (0.9-1.1) 12/07/19 18:17 APTT 29.3 Seconds (21.0-31.0) 12/07/19 18:17 PTT Ratio 1.1 12/07/19 18:17 Sodium 138 mmol/L (136-145) 12/07/19 18:17 Potassium 3.7 mmol/L (3.5-5.1) 12/07/19 18:17 Chloride 109 mmol/L (98-107) H 12/07/19 18:17 Carbon Dioxide 23 mmol/L (21-32) 12/07/19 18:17 Anion Gap 6.0 (3-11) 12/07/19 18:17 BUN 17 mg/dl (7-18) 12/07/19 18:17 Creatinine 1.18 mg/dl (0.6-1.4) 12/07/19 18:17 Est Cr Clr Drug Dosing 59.8 ml/min 12/07/19 18:17 Est GFR ( Amer) 67.1 12/07/19 18:17 Est GFR (Non-Af Amer) 57.9 12/07/19 18:17 BUN/Creatinine Ratio 14.5 (10-20) 12/07/19 18:17 Glucose 124 mg/dl (70-99) H 12/07/19 18:17 Lactate 1.2 mmol/L (0.4-2.0) 12/07/19 18:17 Calcium 8.6 mg/dl (8.5-10.1) 12/07/19 18:17 Magnesium 2.1 mg/dl (1.8-2.4) 12/07/19 18:17 Total Bilirubin 0.3 mg/dl (0.2-1) 12/07/19 18:17 AST 24 U/L (15-37) 12/07/19 18:17 ALT 29 U/L (12-78) 12/07/19 18:17 Alkaline Phosphatase 163 U/L (45-117) H 12/07/19 18:17 Troponin I < 0.015 ng/ml (0-0.045) 12/07/19 22:33 Total Protein 7.9 gm/dl (6.4-8.2) 12/07/19 18:17 Albumin 3.4 gm/dl (3.4-5.0) 12/07/19 18:17 Globulin 4.5 gm/dl (2.5-4.0) H 12/07/19 18:17 Albumin/Globulin Ratio 0.8 (0.9-2) L 12/07/19 18:17 Procalcitonin 0.06 ng/ml (0-0.5) 12/07/19 18:17 Urine Color Yellow 12/07/19 23:00 Urine Appearance Clear (Clear) 12/07/19 23:00 Urine pH 6.0 (4.5-7.5) 12/07/19 23:00 Ur Specific [place] >= 1.030 (1.000-1.030) 12/07/19 23:00 Urine Protein 1+ (Negative) H 12/07/19 23:00 Urine Glucose (UA) Negative (Negative) 12/07/19 23:00 Urine Ketones Trace (Negative) H 12/07/19 23:00 Urine Blood Negative (Negative) 12/07/19 23:00 Urine Nitrite Negative (Negative) 12/07/19 23:00 Urine Bilirubin Negative (Negative) 12/07/19 23:00 Urine Urobilinogen Negative (Negative) 12/07/19 23:00 Ur Leukocyte Esterase Negative (Negative) 12/07/19 23:00 Urine RBC 0-4 /hpf (0-4) 12/07/19 23:00 Urine WBC 0-5 /hpf (0-5) 12/07/19 23:00 Ur Epithelial Cells 5-10 /lpf (0-5) H 12/07/19 23:00 Urine Bacteria Negative (Negative) 12/07/19 23:00 Hyaline Casts 0-5 /lpf (0-5) 12/07/19 23:00 Urine Mucus Present (None Prsent) A 12/07/19 23:00 Influenza Type A (PCR) Neg for Influ A (Neg) 12/07/19 18:07 Influenza Type B (PCR) Neg for Influ B (Neg) 12/07/19 18:07 Diagnostic Findings [place], [place] [phone] XRay Report Patient: JOSHUA LARSEN DAdmit Date: 12/07/19 MR#: [id number]: [address] Acct ID:[id number]: Date: 1940[facility] Zip: [place] [address] Age: 79Location: ED Sex: M Room/Bed: Att Phy:Diagnosis: VOMITING, DIFF. AMBULATING, DECREASE APPETITE Sima Phy: Swati Mustafa CRNPService Date: 12/07/19 Fam Phy:Interpreting Phy: Kilo Reyes MD Admit Phy: Ordering Phy: Mari Law DO cc: ~ XR chest 1V portable CLINICAL HISTORY: SEPSIS dyspnea COMPARISON STUDY: 09/26/2019 FINDINGS: Atelectatic change left base. Slight peribronchial thickening. No well-defined focal infiltrate. Mild stable cardiomegaly. IMPRESSION: 1. Mild platelike atelectasis left base. 2. Chronic parenchymal and mild peribronchial change. 3. No acute infiltrate. ACT 112: Negative or not required by law. The above report was generated using voice recognition software. It may contain grammatical, syntax or spelling errors. Electronically signed by: Kilo Reyes M.D. 12/07/2019 6:43 PM Dictated: 12/07/191841 Transcribed: 12/07/191841 Code Status & VTE Plan Code Status Full code VTE Prophylaxis Plan VTE Prophylaxis will be ordered: Yes PG Care Time/CCT Total # of Minutes Spent Total Time Spent with Patient: Total time spent is greater than 50% in coordination of care (as documented) at patient's floor/unit and/or counseling patient: Coding Level of Care Code 38707 Initial Inpt Care Lvl 3 Diagnoses COPD exacerbation J44.1 Hypoxia R09.02 Abnormal EKG R94.31 Vomiting and diarrhea R11.10; R19.7 Decreased hearing of both ears H91.93 Otitis media H66.90 Impacted cerumen of both ears H61.23 Hypertension I10 Anxiety F41.9
[2019-12-07] MEDS ORDERED: FUROSEMIDE 40 MG/4 ML VIAL IV STA (21:46)
[2019-12-07] MEDS ORDERED: ACETAMINOPHEN 325 MG TAB PO PRN (21:46)
[2019-12-07] MEDS ORDERED: MAGNESIUM HYDROXIDE SUSP 30 ML UDC PO PRN (21:46)
[2019-12-07] MEDS ORDERED: ONDANSETRON INJ 2 MG/ML 2 ML VIAL IV PRN (21:46)
[2019-12-07] MEDS ORDERED: ALUMINUM/MAGNESIUM SUSP 30 ML UDC PO PRN (21:46)
[2019-12-07] MEDS ORDERED: TEMAZEPAM 7.5 MG CAPSULE PO SCH (22:00)
[2019-12-07] MEDS ORDERED: ASPIRIN 81 MG ECTAB PO SCH (22:00)
[2019-12-07] MEDS ORDERED: LORazepam 0.5 MG TAB PO PRN (22:00)
[2019-12-07] MEDS ORDERED: FUROSEMIDE 40 MG in SYRINGE 0 ML IV ONE (22:30)
[2019-12-07] MEDS: HEPARIN SOD 5,000 UNIT/0.5 ML VIAL SQ SCH (22:49)
[2019-12-07] MEDS: guaiFENesin 600 MG TABCR PO SCH (22:50)
[2019-12-07] MEDS: METOPROLOL TARTRATE 25 MG TAB PO SCH (22:50)
[2019-12-07 23:13] LABS: Appearance Urine Clear (Clear); Bilirubin Urine Negative (Negative); Blood Urine Negative (Negative); Color Urine Yellow; Glucose Urine UA Negative (Negative); Ketones Urine Trace (Negative); Leukocyte Esterase Urine Negative (Negative); Nitrite Urine Negative (Negative); Protein Urine 1+ (Negative); Specific Gravity Urine >= 1.030 (1.000-1.030); Urobilinogen Urine Negative (Negative)
[2019-12-07] MEDS ORDERED: PNEUMOCOCCAL ADMINISTRATION CHARGE ONE (23:35)
[2019-12-07] MEDS ORDERED: PNEUMOCOCCAL POLYSACCHARIDES 25 MCG/0.5 ML VIAL/SYR IM ONE (23:35)
[2019-12-07 23:39] LABS: Bacteria Urine Negative (Negative); Hyaline Casts Urine 0-5 /lpf (0-5); Mucus Urine Present (None Prsent); RBC Urine 0-4 /hpf (0-4); WBC Urine 0-5 /hpf (0-5)
[2019-12-08] MEDS: methylPREDNISolone 40 MG in SYRINGE 0 ML IV SCH ×2 (04:06→11:21)
[2019-12-08 06:13] LABS: Hematocrit (blood only) 34.5 % (42-52); Hemoglobin 10.8 g/dL (14.0-18.0); Immature Granulocytes # (auto) 0.02 K/uL (0.00-0.02); Immature Granulocytes % (auto) 0.3 %; Lymphocytes # (auto) 0.84 K/uL (1.2-3.4); Lymphocytes % (auto) 13.2 %; Mean Corpuscular Hemoglobin 26.6 pg (25-34); Mean Corpuscular Hgb Conc 31.3 g/dL (32-36); Mean Platelet Volume 9.4 fL (7.4-10.4); Monocytes # (auto) 0.11 K/uL (0.11-0.59); Monocytes % (auto) 1.7 %; Neutrophils # (auto) 5.37 K/uL (1.4-6.5); Neutrophils % (auto) 84.8 %; Platelet Count 237 K/uL (130-400); RDW Coefficient of Variation 16.8 % (11.5-14.5); RDW Standard Deviation 52.4 fL (36.4-46.3); Red Blood Count 4.06 M/uL (4.7-6.1); White Blood Count 6.34 K/uL (4.8-10.8)
[2019-12-08 06:27] LABS: INR 1.1 (0.9-1.1); Prothrombin Time 11.8 Seconds (9.0-12.0)
[2019-12-08 06:47] LABS: Albumin Level 3.1 gm/dl (3.4-5.0); BUN Creatinine Ratio 15.4 (10-20); Calcium 9.5 mg/dl (8.5-10.1); Creatinine Clr Calc Pharmacy 57.4 ml/min; Est GFR (African American) 65.8; Est GFR (Non-African American) 56.8; Potassium 4.2 mmol/L (3.5-5.1)
[2019-12-08 06:50] LABS: Albumin Globulin Ratio 0.7 (0.9-2); Bilirubin,Total 0.4 mg/dl (0.2-1); Globulin 4.5 gm/dl (2.5-4.0); Total Protein 7.6 gm/dl (6.4-8.2)
[2019-12-08] MEDS ORDERED: BUDESONIDE 0.5 MG/2 ML VIAL (PULMICORT) NEB SCH (07:00)
[2019-12-08] MEDS: ALBUT/IPRATROP 3MG/0.5MG NEB 3 ML VIAL NEB SCH ×3 (07:08→15:04)
[2019-12-08] MEDS: HEPARIN SOD 5,000 UNIT/0.5 ML VIAL SQ SCH (07:24)
[2019-12-08] MEDS: guaiFENesin 600 MG TABCR PO SCH (07:24)
[2019-12-08] MEDS: METOPROLOL TARTRATE 25 MG TAB PO SCH (07:24)
[2019-12-08] MEDS ORDERED: PANTOprazole 40 MG TAB PO SCH (09:00)
[2019-12-08] MEDS ORDERED: CLOPIDOGREL BISULFATE 75 MG TAB PO SCH (09:00)
[2019-12-08] MEDS ORDERED: ATORVASTATIN 40 MG TAB PO SCH (09:00)
[2019-12-08] MEDS ORDERED: CARBAMIDE PEROXIDE 6.5% 15 ML BTL OTB SCH (12:00)
--- NOTE | 2019-12-08 14:25 | Electrocardiogram Report ---
Test Reason : Blood Pressure : / mmHG Vent. Rate : 069 BPM Atrial Rate : 069 BPM P-R Int : 188 ms QRS Dur : 076 ms QT Int : 386 ms P-R-T Axes : 059 032 037 degrees QTc Int : 413 ms Normal sinus rhythm Nonspecific ST and T wave abnormality Abnormal ECG When compared with ECG of 26-SEP-2019 15:33, Nonspecific T wave abnormality now evident in Lateral leads Confirmed by Robert Ross ([id number]) on 12/08/2019 2:25:20 PM Referred By: REFERRED SELF Confirmed By:Jamie Ross
--- NOTE | 2019-12-08 14:27 | Electrocardiogram Report ---
Test Reason : Blood Pressure : / mmHG Vent. Rate : 076 BPM Atrial Rate : 076 BPM P-R Int : 188 ms QRS Dur : 080 ms QT Int : 392 ms P-R-T Axes : 053 032 044 degrees QTc Int : 441 ms Normal sinus rhythm Normal ECG No previous ECGs available Confirmed by Robert Ross ([id number]) on 12/08/2019 2:26:56 PM Referred By: REFERRED SELF Confirmed By:Jamie Ross
--- NOTE | 2019-12-08 16:46 | Discharge Summary ---
Date of Service December 08, 2019 Admission HPI Per Admitting Provider The patient is a an 79-year-old male with a past medical history including pulmonary nodule, hypertension, anxiety, STEMI, COPD, and bilateral hearing loss. He presents to the emergency department with symptoms began several weeks ago with worsening cough, shortness of breath, fatigue and decreased appetite. Over the past 2 days he is developed intermittent nausea vomiting and diarrhea. He has undergone treatment of the past months with several courses of antibiotics, without improvement in hearing discomfort with hearing loss. He has not had any recent travels or sick exposures. Principal Diagnosis Gastroenteritis, Acute bronchitis, Hearing loss with cerumen impaction Discharge Exam Constitutional WD/WN, vitals as above Eyes + anicteric sclerae ENMT Ears: + hearing impairment, + EAC abnormality (Left-complete cerumen [id number] cerumen impaction) and + TM abnormality (Right-TM with mild erythema,loss of light reflex; Left-not able to see); no external ear abnormality Left ear cerumen partially removed with ear curette and had partial relief of hearing loss Neck trachea midline, no thyromegaly Respiratory normal respiratory effort; no respiratory distress Auscultation: + crackles (mild, bibasilar); no rhonchi and no wheezes Cardiovascular RRR, no murmur, no edema Chest (Breasts) Chest: normal inspection of chest Gastrointestinal (Abdomen) normal bowel sounds, soft, nontender, no hepatosplenomegaly Musculoskeletal Extremities: extremities normal to inspection; no cyanosis and no clubbing Skin no rashes, warm and dry Neurologic moves all extremities and awake; no focal motor deficits Psychiatric A+Ox3, euthymic affect Lymphatic no lymphedema Discharge Data Allergies Allergy/AdvReac Type Severity Reaction Status Date / Time No Known Allergies Allergy Verified 12/07/19 18:43 Consultations 12/07/19 19:37 ED Decision to Admit Stat 12/07/19 21:46 Consult Case Management - Discharge Planning Routine Ordered Studies CXR Hospital Course (1) COPD exacerbation: COPD exacerbation/chronic bronchitis with hypoxia and acute bronchitis- CXR without PNA but has chronic changes, procal negative, Flu swab negative, no fevers Duonebs, steroids, and O2 provided and had significant improvement Pt very anxious for discharge less than 24 hours--> 2 step walk test performed and required 2L at rest and 3LNC with ambulation Levofloxacin 500 mg daily to be continued x 7 day course after discharge -finish out prednisone course after discharge -f/u with PCP (2) Hypoxia: See above (3) Abnormal EKG: Nonspecific ST-T changes laterally/history of STEMI- No chest pains; serial cardiac markers negative and tele no arrhythmias (4) Vomiting and diarrhea: Came on acutely prior to admission and completely resolved by the morning after admission Likely viral gastroenteritis supportive care given -tolerating regular diet at time of discharge (5) Decreased hearing of both ears: Decreased hearing of both ears L>R/?otitis media on right/bilateral cerumen impaction, left greater than right. Bilateral ear irrigation while in the ED not successful Cerumen removed with curette from left and hearing partially improved -advised Debrox drops and f/u with ENT planned for later this week (6) Otitis media: See above. On levaquin for bronchitis which will also cover for AOM (7) Impacted cerumen of both ears: See above. (8) Hypertension: BPs controlled-continue metoprolol, lisinopril (9) Anxiety: Routinely takes Ativan twice daily at home, and will continue. (10) CKD (chronic kidney disease) stage 3, GFR 30-59 ml/min: Chronic kidney disease, stage 3 -stable renal function -continue lisinopril Dispo-stable for dc to home with home O2 started Total Time Total Time Spent Total Time Spent (In Minutes): 45 min Total Time Includes: Examination of the Patient, Discharge Planning and Medication Reconciliation Discharge Plan Discharge Items Patient Disposition: Home - Self-Care Reason For Visit: SHORTNESS OF BREATH,DECREASED HEARING Discharge Diagnosis: COPD Exacerbation Acute respiratory failure with hypoxia Cerumen impaction, Hearing loss Condition on Discharge: Fair Activity: As commented below Lifting: Gradually increase as tolerated Bathing: No limitations Exercise/Sports: As tolerated Exercise Comment: Must wear oxygen at all times, 2L with rest and 3L with exertion Non-emergency contact: Primary Care Provider Call non-emergency contact if: you have any medication questions Follow-up/Referrals: Clara Reyez PA-C [Physician [employer]] - (Please follow up within 2 weeks----[facility] will call you with appointment ) Erlin Santos MD [Physician] - (Please follow up within 2 weeks.----- [facility] will call you with appointment) Swati Mustafa CRNP [Primary Care Provider] - Diet: Heart Healthy Addtl Attending Provider Instructions: You were admitted with nausea, vomiting, and diarrhea which may have been caused by a viral illness. This is now completely resolved. You were also found to have low oxygen levels and were started on steroids and antibiotics for bronchitis and COPD. Please finish out a course of prednisone and antibiotics (Levaquin) as prescribed for your COPD exacerbation. You are still requiring oxygen--> please use 2L via nasal cannula at rest and 3L via nasal cannula with exertion. Follow up with your Pulmonology provider as will be scheduled for you. Follow up with the ENT doctor as you have scheduled on this morning for your hearing loss. Pending Studies at Discharge: Yes (Blood cultures-no growth to date) Stand-Alone Forms: My [facility], Smoking Cessation Medications and DC Order Prescriptions: New carbamide peroxide [Ear Drops (carbamide peroxide)] 6.5 % Drops 4 drp OTB DAILY Qty: 30 RF: 0 levofloxacin 500 mg tablet 500 mg PO DAILY Qty: 6 RF: 0 prednisone 20 mg tablet 40 mg PO DAILY Qty: 10 RF: 0 Continued albuterol sulfate [Ventolin HFA] 90 mcg/actuation HFA aerosol inhaler 1 puffs INH Q6H PRN (Reason: Shortness Of Breath) RF: 0 albuterol sulfate 2.5 mg /3 mL (0.083 %) solution for nebulization 2.5 mg continuous nebulization Q6H PRN (Reason: Shortness Of Breath) Qty: 60 RF: 0 Hold Instructions: [place] [facility]ole 40 mg tablet,delayed release (DR/EC) 40 mg PO DAILY Qty: 30 RF: 0 lisinopril 5 mg tablet 5 mg PO QPM Qty: 90 RF: 0 metoprolol tartrate 25 mg tablet 25 mg PO BID Qty: 30 RF: 6 aspirin 81 mg Tablet,Delayed Release (Dr/Ec) 81 mg PO HS RF: 0 atorvastatin 80 mg tablet 80 mg PO DAILY RF: 0 temazepam 7.5 mg capsule 7.5 mg PO HS RF: 0 clopidogrel 75 mg Tablet 75 mg PO QAM Qty: 90 RF: 3 Dulera 100-5 mcg/actuation HFA aerosol inhaler 2 puffs INH BID Qty: 13 RF: 6 ipratropium-albuterol 0.5 mg-3 mg(2.5 mg base)/3 mL solution for nebulization 3 ml INH Q6H PRN (Reason: Wheezing) RF: 0 lorazepam [Ativan] 0.5 mg tablet 0.5 mg PO Q12H PRN (Reason: Anxiety) RF: 0 Discharge Orders: Discharge Order (Routine); Ordered 12/08/19 Ordered By: Ann De La Cruz Admission Data Admit Date/Time: 12/07/19 20:18 Attending Provider: Ann De La Cruz Admit Provider: Manuel Cobb Primary Care Provider: Swati Mustafa Other Providers: Manuel Cobb Other Interventions: Discharge Summary Assessment (RN) Last Done: 12/08/19 17:53 DC Date/Time DO NOT enter until pt leaves facility: 12/08/19 18:23 Coding Level of Care Code D/C Day Management >30 mins Diagnoses COPD exacerbation J44.1 Hypoxia R09.02 Abnormal EKG R94.31 Vomiting and diarrhea R11.10; R19.7 Decreased hearing of both ears H91.93 Otitis media H66.90 Impacted cerumen of both ears H61.23 Hypertension I10 Anxiety F41.9 CKD (chronic kidney disease) stage 3, GFR 30-59 ml/min N18.3
[2019-12-08] MEDS ORDERED: LEVOFLOXACIN/D5W 500 MG/100 ML BAG IV SCH (21:00)
== END 2019-12-08 18:23 | disposition home or self-care (01) | DRG 192 ==
LOC: ED 17:43 → SUATTDRO 20:18 → 2S 20:18

== ENCOUNTER 2020-07-01 17:01 | Inpatient (IN) ==
[2020-07-01] MEDS ORDERED: ASPIRIN CHEW 324 MG PO STA (18:22)
--- NOTE | 2020-07-01 18:25 | Emergency Department Note ---
Impression & Plan Acute GI bleeding, Shortness of breath, Substernal chest pain, Hypertension, Symptomatic anemia ED Provider Note NAME: JOSHUA LARSEN AGE: 79 SEX: M : 1940 ARRIVES VIA: Walk-In INFORMANT: Patient ED PROVIDER(S): Suman Davis DO CHIEF COMPLAINT: Shortness of breath chest pain and weakness HPI: Patient is an 79-year-old male with a past medical history of CAD, 2 previous MIs, COPD who presents the ER for shortness of breath. This is exertional and has been getting worse over the past 4 months. Today is the worst. He has been intermittently getting chest pressure with this. He notes it resolves after several seconds. Chest pain is currently a 0 out of 10. Admits to increased swelling of his legs but he has had this for years but it is worse. Denies any dysuria urgency or frequency. No belly pain. He admits to feeling weak and rundown which is worse recently. He was referred in by cardiology after seeing them today. ROS: See above HPI for pertinent positives & negatives. A total of 10 systems reviewed and were otherwise negative. PAST MEDICAL HISTORY:See Below PAST SURGICAL HISTORY:See Below FAMILY HISTORY:See Below SOCIAL HISTORY:See Below HOME MEDICATIONS:See Below ALLERGIES:See Below VITALS:See Below PHYSICAL EXAMINATION: GENERAL: Sitting up in bed, alert, significantly short of breath with movement EYE EXAM: normal conjunctiva. OROPHARYNX: no exudate, no erythema, lips, buccal mucosa, and tongue normal and mucous membranes are moist NECK: supple, no nuchal rigidity, no adenopathy, non-tender LUNGS: Clear to auscultation. Normal chest wall mechanics HEART: no murmurs, S1 normal and S2 normal RECTAL: Heme positive stool ABDOMEN: abdomen soft, non-tender, normo-active bowel sounds, no masses, no rebound or guarding. BACK: Back is symmetrical on inspection and there is no deformity, no midline tenderness, no CVA tenderness. UPPER EXTREMITIES: upper extremities are grossly normal. LOWER EXTREMITIES: Any edema in the bilateral lower extremities. Calves are equal bilateral NEURO EXAM: Normal sensorium, cranial nerves II-XII grossly intact, normal speech, no gross weakness of arms, no gross weakness of legs. MEDICAL DECISION MAKING: Patient is an 79-year-old male with a past medical history of COPD, CAD with 2 previous stents that presents the ER referred in by cardiology for exertional shortness of breath which is been worsening over the past 4 months associated with some chest pain and diffuse weakness. IV was established blood work was obtained. Labs showed no significant leukocytosis. Anemia at 7.9 down from baseline of 10-11. INR was at 1.2. BMP with slightly elevated chloride. Troponin was negative. proBNP not significantly elevated. Lipase was normal. Patient was typed and crossed. Rectal was heme positive. Chest x-ray with some congestion. He was given a small dose of diuretics. He was updated bedside. Discussed with the hospitalist. He will be admitted for symptomatic anemia in combination with chest pain and shortness of breath and a questionable infiltrate on the chest x-ray although he has no cough or upper respiratory symptoms other than the shortness of breath. Triage Nursing notes reviewed. Prior medical records reviewed Vital Signs: reviewed and remarkable for no significant abnormalities Differential diagnosis: Differential diagnoses includes but is not limited to pneumonia, bronchitis, COPD/Asthma exacerbation, pneumothorax, pulmonary embolism, congestive heart failure, acute coronary syndrome ER treatment provided: See below Diagnostics interpreted by me: ECG: Sinus rhythm rate 67 Normal axis No PVCs Normal QTC Cardiac Monitoring: An order was placed for continuous cardiac monitoring. The monitor shows a rate of 70 with sinus rhythm. Laboratory studies: As stated above and show below. Imaging studies: Portable AP upright 1 view of the chest shows mild vascular congestion with a questionable left lower lobe opacity Consultation(s): Logan with Dr. Manuel Carballo for further evaluation ED COURSE: Procedures: none Critical Care: None Past Med/Surg History Medical History (Updated 07/01/20 @ 22:52 by Suman Davis DO) Acute bronchitis Acute myocardial infarction Acute sinusitis CKD (chronic kidney disease) stage 3, GFR 30-59 ml/min COPD (chronic obstructive pulmonary disease) Elevated troponin GERD (gastroesophageal reflux disease) Hypoxia Osteoarthritis Pulmonary nodule 9mm RUL initial ct 08/[address] elevation myocardial infarction (STEMI) of inferior wall Surgical History (Updated 12/08/19 @ 08:22 by Sarah Corbett MA) H/O heart artery stent History of lumbar discectomy History of palate surgery History of surgery Uvula Family History (Updated 12/08/19 @ 08:24 by Sarah Corbett MA) Mother Myocardial infarction Father Cancer Malignant Pancreatic Neoplasm Other Family history non-contributory Hypertension Social History Smoking Status: Former smoker Cigarettes Per Day: UP TO 100; Hx Alcohol Use: Yes Alcohol type: beer Hx Substance Use: No Preferred Language: Frisian Communication Ability: Effective 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: No Beliefs That Will Affect Care: None marital status: Current Living Situation: Spouse Current Living Situation Comment: ranch house current occupational status: retired Feels Safe at Home: Yes Assistive Devices: Oxygen - Continuous Allergies Allergies Allergy/AdvReac Type Severity Reaction Status Date / Time No Known Allergies Allergy Verified 07/01/20 15:40 Home Meds Home Medications Medication Instructions Recorded Confirmed aspirin 81 mg PO HS 03/10/19 07/01/20 temazepam 7.5 mg PO HS PRN 03/10/19 07/01/20 pantoprazole 40 mg tablet,delayed 40 mg PO DAILY #30 tab 06/23/19 07/01/20 release fluticasone propionate [Allergy 1 spray INTRANASAL DAILY PRN 07/01/20 07/01/20 Relief (fluticasone)] loratadine 10 mg PO DAILY 07/01/20 07/01/20 Previous Rx's Medication Instructions Recorded clopidogrel 75 mg PO QAM #90 tab 03/10/19 metoprolol tartrate 25 mg tablet 25 mg PO BID #30 tab 08/25/19 miscellaneous medical supply #1 ea 02/29/20 Oxygen Home #1 ea 03/01/20 atorvastatin 80 mg tablet 80 mg PO DAILY #90 tab 04/08/20 lisinopril 5 mg tablet 5 mg PO QPM #90 tab 04/08/20 lorazepam 0.5 mg tablet 0.5 mg PO BID PRN #45 tab 05/26/20 albuterol sulfate 90 mcg/actuation 2 inh INH Q6H PRN #18 g 06/06/20 aerosol inhaler dextromethorphan-guaifenesin 30 1 tab PO Q12H PRN #60 tab 06/06/20 mg-600 mg tablet extended hr fluticasone fur. 100 mcg-umeclid 1 inh INHALATION DAILY #60 ea 06/06/20 62.5 mcg-vilant 25 mcg inhalat.powder Results & Data (ED) Vital Signs Vital Signs - 24 hr 07/01/20 17:22 07/01/20 18:28 07/01/20 18:43 Temperature 37.6 C H Temperature Source Oral Pulse Rate 71 71 69 Pulse Rate from SpO2 Sensor Pulse Rhythm Regular Respiratory Rate 22 22 22 Respiratory Effort / Characteristics Non-Labored Spontaneous Respiratory Depth Normal Respiratory Pattern Regular Blood Pressure 115/66 Blood Pressure Mean 82 Blood Pressure Position Sitting Pulse Oximetry 94 94 88 L Oxygen Delivery Method Room Air Room Air Room Air Oxygen Flow Rate Sepsis Recent Fever Within 48 Hours No Sepsis New/Unexplained Change in Mental Status No Sepsis Action Taken by Nursing No Action Required 07/01/20 18:49 07/01/20 19:00 07/01/20 19:30 Temperature Temperature Source Pulse Rate 65 67 68 Pulse Rate from SpO2 Sensor 65 67 68 Pulse Rhythm Respiratory Rate 19 20 22 Respiratory Effort / Characteristics Respiratory Depth Respiratory Pattern Blood Pressure 178/105 H 196/80 H 192/91 H Blood Pressure Mean 145 130 126 Blood Pressure Position Pulse Oximetry 94 95 95 Oxygen Delivery Method Nasal Cannula Nasal Cannula Nasal Cannula Oxygen Flow Rate 2 2 2 Sepsis Recent Fever Within 48 Hours Sepsis New/Unexplained Change in Mental Status Sepsis Action Taken by Nursing 07/01/20 21:00 07/01/20 22:01 Temperature Temperature Source Pulse Rate 67 72 Pulse Rate from SpO2 Sensor 67 72 Pulse Rhythm Respiratory Rate 18 18 Respiratory Effort / Characteristics Respiratory Depth Respiratory Pattern Blood Pressure 190/88 H 173/76 H Blood Pressure Mean 146 129 Blood Pressure Position Pulse Oximetry 98 98 Oxygen Delivery Method Oxygen Flow Rate Sepsis Recent Fever Within 48 Hours Sepsis New/Unexplained Change in Mental Status Sepsis Action Taken by Nursing Laboratory Data Result diagrams: 07/01/20 18:46 07/01/20 18:46 Lab Results 07/01/20 07/01/20 07/01/20 Range/Units 18:46 18:46 18:46 WBC 6.20 (4.8-10.8) K/uL RBC 3.70 L (4.7-6.1) M/uL Hgb 7.9 L (14.0-18.0) g/dL Hct 27.3 L (42-52) % MCV 73.8 L (80-100) fL MCH 21.4 L (25-34) pg MCHC 28.9 L (32-36) g/dL RDW Std Deviation 47.9 H (36.4-46.3) fL RDW Coeff of Mario 17.7 H (11.5-14.5) % Plt Count 187 (130-400) K/uL MPV 9.7 (7.4-10.4) fL Immature Gran % (Auto) 0.2 % Neut % (Auto) 61.4 % Lymph % (Auto) 24.8 % [place] % (Auto) 9.7 % Eos % (Auto) 3.7 % Baso % (Auto) 0.2 % Neut # (Auto) 3.81 (1.4-6.5) K/uL Lymph # (Auto) 1.54 (1.2-3.4) K/uL [place] # (Auto) 0.60 H (0.11-0.59) K/uL Eos # (Auto) 0.23 (0-0.5) K/uL Baso # (Auto) 0.01 (0-0.2) K/uL Immature Gran # (Auto) 0.01 (0.00-0.02) K/uL Hypochromasia Present Tear Drop Cells 1+ Echinocytes 1+ PT 12.1 H (9.0-12.0) Seconds INR 1.2 H (0.9-1.1) APTT 30.2 (21.0-31.0) Seconds PTT Ratio 1.1 Sodium 142 (136-145) mmol/L Potassium 4.1 (3.5-5.1) mmol/L Chloride 112 H (98-107) mmol/L Carbon Dioxide 24 (21-32) mmol/L Anion Gap 6.0 (3-11) BUN 17 (7-18) mg/dl Creatinine 1.10 (0.6-1.4) mg/dl Est Cr Clr Drug Dosing 62.6 ml/min Est GFR ( Amer) 73.1 Est GFR (Non-Af Amer) 63.1 BUN/Creatinine Ratio 15.5 (10-20) Glucose 86 (70-99) mg/dl Calcium 8.8 (8.5-10.1) mg/dl Total Bilirubin 0.5 (0.2-1) mg/dl AST 41 H (15-37) U/L ALT 41 (12-78) U/L Alkaline Phosphatase 257 H (45-117) U/L Troponin I < 0.015 (0-0.045) ng/ml NT-Pro-B Natriuret Pep 593 (0-1800) pg/ml Total Protein 7.5 (6.4-8.2) gm/dl Albumin 3.3 L (3.4-5.0) gm/dl Globulin 4.2 H (2.5-4.0) gm/dl Albumin/Globulin Ratio 0.8 L (0.9-2) Lipase 114 (73-393) U/L Blood Type Antibody Screen 07/01/20 Range/Units 20:16 WBC (4.8-10.8) K/uL RBC (4.7-6.1) M/uL Hgb (14.0-18.0) g/dL Hct (42-52) % MCV (80-100) fL MCH (25-34) pg MCHC (32-36) g/dL RDW Std Deviation (36.4-46.3) fL RDW Coeff of Mario (11.5-14.5) % Plt Count (130-400) K/uL MPV (7.4-10.4) fL Immature Gran % (Auto) % Neut % (Auto) % Lymph % (Auto) % [place] % (Auto) % Eos % (Auto) % Baso % (Auto) % Neut # (Auto) (1.4-6.5) K/uL Lymph # (Auto) (1.2-3.4) K/uL [place] # (Auto) (0.11-0.59) K/uL Eos # (Auto) (0-0.5) K/uL Baso # (Auto) (0-0.2) K/uL Immature Gran # (Auto) (0.00-0.02) K/uL Hypochromasia Tear Drop Cells Echinocytes PT (9.0-12.0) Seconds INR (0.9-1.1) APTT (21.0-31.0) Seconds PTT Ratio Sodium (136-145) mmol/L Potassium (3.5-5.1) mmol/L Chloride (98-107) mmol/L Carbon Dioxide (21-32) mmol/L Anion Gap (3-11) BUN (7-18) mg/dl Creatinine (0.6-1.4) mg/dl Est Cr Clr Drug Dosing ml/min Est GFR ( Amer) Est GFR (Non-Af Amer) BUN/Creatinine Ratio (10-20) Glucose (70-99) mg/dl Calcium (8.5-10.1) mg/dl Total Bilirubin (0.2-1) mg/dl AST (15-37) U/L ALT (12-78) U/L Alkaline Phosphatase (45-117) U/L Troponin I (0-0.045) ng/ml NT-Pro-B Natriuret Pep (0-1800) pg/ml Total Protein (6.4-8.2) gm/dl Albumin (3.4-5.0) gm/dl Globulin (2.5-4.0) gm/dl Albumin/Globulin Ratio (0.9-2) Lipase (73-393) U/L Blood Type O Positive Antibody Screen POSITIVE A Administered Medications Pantoprazole Sodium 40 mg/ (Syringe) 10 mls @ 5 mls/min IV BID MARCELINO Stop: 07/31/20 21:29 Last Admin: 07/01/20 21:39 Dose: 5 mls/min Documented by: [id number] Ceftriaxone Sodium 2,000 mg/ (Dextrose) 70 mls @ 100 mls/hr IV Q24H MARCELINO; Protocol Stop: 07/08/20 21:59 Last Infusion: 07/01/20 22:25 Dose: 0 mls/hr Documented by: [id number] Admin: 07/01/20 21:39 Dose: 100 mls/hr Documented by: [id number] Discontinued Medications Aspirin (Aspirin Chew 324 Mg) 324 mg PO NOW STA Stop: 07/01/20 18:23 Last Admin: 07/01/20 18:58 Dose: 324 mg Documented by: [id number] Furosemide (Furosemide 40 Mg/4 Ml Vial) 40 mg IV NOW STA Stop: 07/01/20 19:42 Last Admin: 07/01/20 20:56 Dose: 40 mg Documented by: [id number] Discharge Plan Visit Data Chief Complaint: Abnormal Labs/Diagnostic Testing Stated Complaint: ABNORMAL EKG, DR CERVANTES SENT OVER ED Provider: Suman Davis Discharge Problem: Acute GI bleeding, Shortness of breath, Substernal chest pain, Hypertension, Symptomatic anemia Forms Stand Alone Forms: My [facility] [place] [employer] Prescriptions Prescriptions: No Action (DME) Oxygen Home Liters Per Minute See Rx Instructions .ROUTE .MEDSUPPLY Qty: 1 RF: 0 lisinopril 5 mg tablet 5 mg PO QPM Qty: 90 RF: 3 atorvastatin 80 mg tablet 80 mg PO DAILY Qty: 90 RF: 3 (DME) CPAP Supplies Misc See Rx Instructions .ROUTE .MEDSUPPLY Qty: 1 RF: 0 lorazepam [Ativan] 0.5 mg tablet 0.5 mg PO BID PRN (Reason: Anxiety) Qty: 45 RF: 0 Trelegy Ellipta 100-62.5-25 mcg blister with device 1 inh inhalation DAILY Qty: 60 RF: 3 albuterol sulfate [Ventolin HFA] 90 mcg/actuation HFA aerosol inhaler 2 inh INH Q6H PRN (Reason: Shortness Of Breath) Qty: 18 RF: 3 Mucinex DM 30-600 mg tablet extended release 12 hr 1 tab PO Q12H PRN (Reason: cough) Qty: 60 RF: 2 pantoprazole 40 mg tablet,delayed release (DR/EC) 40 mg PO DAILY Qty: 30 RF: 0 metoprolol tartrate 25 mg tablet 25 mg PO BID Qty: 30 RF: 6 aspirin 81 mg Tablet,Delayed Release (Dr/Ec) 81 mg PO HS RF: 0 temazepam 7.5 mg capsule 7.5 mg PO HS PRN (Reason: Sleep) RF: 0 clopidogrel 75 mg Tablet 75 mg PO QAM Qty: 90 RF: 3 loratadine 10 mg Tablet 10 mg PO DAILY RF: 0 fluticasone propionate [Allergy Relief (fluticasone)] 50 mcg/actuation spray, suspension 1 spray intranasal DAILY PRN (Reason: Nasal Congestion) RF: 0 Discharge Problem: Hypertension Qualifiers: Hypertension type: unspecified Qualified Code(s): I10 - Essential (primary) hypertension
--- NOTE | 2020-07-01 18:30 | XRay Report ---
SINGLE VIEW CHEST CLINICAL HISTORY: Atypical chest pain. FINDINGS: An AP, portable, upright chest radiograph is compared to study dated 12/07/2019 and correlat ed with chest CT dated 11/23/2019. The examination is degraded by portable technique and apical lordoti c positioning. The heart is enlarged noting atherosclerotic calcification of the thoracic aorta. Ther e is prominence of the pulmonary vasculature. Emphysematous change is noted with chronic interstitial thickening. Superimposed airspace consolidation is suspected at the left lung base in the retrocardi ac region. No large pleural effusion or pneumothorax is seen. The skeletal structures are osteopenic. The bony thorax is grossly intact. IMPRESSION: 1. Cardiomegaly and emphysema with prominence of the pulmonary vasculature. Correlate clinically for evidence of mild congestive failure. 2. Suspect superimposed airspace consolidation at the left lung base in the retrocardiac region. Guille elate clinically for evidence of an infectious/inflammatory pneumonitis. Radiographic follow-up to re solution is recommended. Follow-up should include both PA and lateral views. ACT 112: Negative or not required by law. Electronically signed by: Yan Clements M.D. 07/01/2020 6:28 PM
[2020-07-01 19:14] LABS: Alanine Aminotransferase 41 U/L (12-78); Albumin Level 3.3 gm/dl (3.4-5.0); Aspartate Aminotransferase 41 U/L (15-37); BUN Creatinine Ratio 15.5 (10-20); Blood Urea Nitrogen 17 mg/dl (7-18); Calcium 8.8 mg/dl (8.5-10.1); Carbon Dioxide 24 mmol/L (21-32); Chloride 112 mmol/L (98-107); Creatinine Clr Calc Pharmacy 62.6 ml/min; Est GFR (African American) 73.1; Est GFR (Non-African American) 63.1; Glucose 86 mg/dl (70-99); Lipase 114 U/L (73-393); Potassium 4.1 mmol/L (3.5-5.1); Sodium 142 mmol/L (136-145)
[2020-07-01 19:17] LABS: INR 1.2 (0.9-1.1); Partial Thromboplastin Ratio 1.1; Partial Thromboplastin Time 30.2 Seconds (21.0-31.0); Prothrombin Time 12.1 Seconds (9.0-12.0)
[2020-07-01 19:19] LABS: Albumin Globulin Ratio 0.8 (0.9-2); Alkaline Phosphatase 257 U/L (45-117); Bilirubin,Total 0.5 mg/dl (0.2-1); Globulin 4.2 gm/dl (2.5-4.0); NT Pro B Type Natriuretic Pept 593 pg/ml (0-1800); Total Protein 7.5 gm/dl (6.4-8.2); Troponin I < 0.015 ng/ml (0-0.045)
[2020-07-01 19:31] LABS: Basophils # (auto) 0.01 K/uL (0-0.2); Basophils % (auto) 0.2 %; Echinocytes 1+; Eosinophils # (auto) 0.23 K/uL (0-0.5); Eosinophils % (auto) 3.7 %; Hematocrit (blood only) 27.3 % (42-52); Hemoglobin 7.9 g/dL (14.0-18.0); Hypochromasia Present; Immature Granulocytes # (auto) 0.01 K/uL (0.00-0.02); Immature Granulocytes % (auto) 0.2 %; Lymphocytes # (auto) 1.54 K/uL (1.2-3.4); Lymphocytes % (auto) 24.8 %; Mean Corpuscular Hemoglobin 21.4 pg (25-34); Mean Corpuscular Hgb Conc 28.9 g/dL (32-36); Mean Corpuscular Volume 73.8 fL (80-100); Mean Platelet Volume 9.7 fL (7.4-10.4); Monocytes % (auto) 9.7 %; Neutrophils # (auto) 3.81 K/uL (1.4-6.5); Neutrophils % (auto) 61.4 %; Platelet Count 187 K/uL (130-400); RDW Coefficient of Variation 17.7 % (11.5-14.5); RDW Standard Deviation 47.9 fL (36.4-46.3); Tear Drop Cells 1+
[2020-07-01] MEDS ORDERED: FUROSEMIDE 40 MG/4 ML VIAL IV STA (19:41)
[2020-07-01] MEDS ORDERED: LORazepam 0.5 MG TAB PO PRN (20:30)
[2020-07-01] MEDS: PANTOprazole 40 MG in SYRINGE 0 ML IV SCH (21:39)
[2020-07-01] MEDS ORDERED: cefTRIAXone SODIUM 2,000 MG in DEXTROSE 5% 50 ML IV SCH (22:00)
--- NOTE | 2020-07-01 23:32 | History & Physical Report ---
Date of Service July 01, 2020 Assessment & Plan (1) Acute on chronic respiratory failure with hypoxia: Acute on chronic respiratory failure with hypoxia- community-acquired pneumonia left lower lobe of lung Acute exacerbation of CHF Symptomatic anemia due to upper GI bleed Present on Admission?: Yes (2) Community acquired pneumonia of left lower lobe of lung: Community-acquired pneumonia of left lower lobe of lung- Place on ceftriaxone 1 g IV daily, and azithromycin 500 mg IV daily. Present on Admission?: Yes (3) Acute exacerbation of CHF (congestive heart failure): Acute exacerbation of CHF/CAD/hypertension/RCA DARWIN- The patient will be admitted to telemetry for serial cardiac enzymes, serial EKG's, cardiac rhythm monitoring and a 2-D echocardiogram with Dopplers. Patient did receive furosemide 40 mg IV in the ED, and will be continued at 40 mg IV every 12 hours. Continue metoprolol tartrate 25 mg p.o. twice daily. Hold lisinopril 5 mg p.o. daily Follow serial BMP and magnesium levels. Present on Admission?: Yes (4) Upper GI bleed: Upper GI bleed/hypochromic microcytic anemia/heme positive stool- N.p.o. except essential medications. Hold aspirin and clopidogrel. H&H every 6 hours Protonix 40 mg IV twice daily Consult gastroenterology Present on Admission?: Yes (5) Symptomatic anemia: Likely causing an element of high-output CHF. Hemoglobin 7.9 upon admission. Type and screen performed, however, patient was found to have antibodies. Present on Admission?: Yes (6) CAD (coronary artery disease): See above Present on Admission?: Yes (7) RIK (obstructive sleep apnea): Patient will be fit with in hospital CPAP for the evening, but will attempt to bring his own CPAP in tomorrow if still in hospital Present on Admission?: Yes (8) Hyperlipidemia: Continue atorvastatin 80 mg daily. Check a fasting lipid panel Present on Admission?: Yes (9) Hypertension: See above Present on Admission?: Yes Admission and Anticipated Discharge Date Admission Date: July 01, 2020 History of Present Illness Chief Complaint: The patient presents to the emergency department with complaint of shortness of breath which has been gradually worsening over the past 4 months, in particular over the past 24 hours, and now accompanied by chest pressure that lasts for several seconds. Primary Care Provider: Letty Momin MD The patient is an 79-year-old male with a past medical history including CAD, chronic respiratory failure with hypoxia, RIK, emphysema, anxiety disorder, generalized osteoarthritis of multiple sites, history of STEMI, hyperglycemia, hyperlipidemia, LVH, lumbar radiculopathy, RCA DARWIN, seborrheic dermatitis, CKD stage III, pulmonary nodule, hypertension, and hypertension. The patient presents with symptoms as noted above. He also notes lower extremity edema gradually worsening just during this time as well. He typically wears CPAP at nighttime. He has a cough which is occasionally productive. Allergies Allergy/AdvReac Type Severity Reaction Status Date / Time No Known Allergies Allergy Verified 07/01/20 15:40 Home Medications Home Medications Medication Instructions Recorded Confirmed Type aspirin 81 mg PO HS 03/10/19 07/01/20 History clopidogrel 75 mg PO QAM #90 tab 03/10/19 07/01/20 Rx temazepam 7.5 mg PO HS PRN 03/10/19 07/01/20 History pantoprazole 40 mg tablet,delayed 40 mg PO DAILY #30 tab 06/23/19 07/01/20 History release metoprolol tartrate 25 mg tablet 25 mg PO BID #30 tab 08/25/19 07/01/20 Rx miscellaneous medical supply #1 ea 02/29/20 07/01/20 Rx Oxygen Home #1 ea 03/01/20 07/01/20 Rx atorvastatin 80 mg tablet 80 mg PO DAILY #90 tab 04/08/20 07/01/20 Rx lisinopril 5 mg tablet 5 mg PO QPM #90 tab 04/08/20 07/01/20 Rx lorazepam 0.5 mg tablet 0.5 mg PO BID PRN #45 tab 05/26/20 07/01/20 Rx albuterol sulfate 90 mcg/actuation 2 inh INH Q6H PRN #18 g 06/06/20 07/01/20 Rx aerosol inhaler dextromethorphan-guaifenesin 30 1 tab PO Q12H PRN #60 tab 06/06/20 07/01/20 Rx mg-600 mg tablet extended hr fluticasone fur. 100 mcg-umeclid 1 inh INHALATION DAILY #60 ea 06/06/20 07/01/20 Rx 62.5 mcg-vilant 25 mcg inhalat.powder fluticasone propionate [Allergy 1 spray INTRANASAL DAILY PRN 07/01/20 07/01/20 History Relief (fluticasone)] loratadine 10 mg PO DAILY 07/01/20 07/01/20 History Past Med/Surg History Medical History (Updated 07/02/20 @ 04:22 by Manuel Cobb MD) Acute bronchitis Acute myocardial infarction Acute sinusitis CKD (chronic kidney disease) stage 3, GFR 30-59 ml/min COPD (chronic obstructive pulmonary disease) Elevated troponin GERD (gastroesophageal reflux disease) Hypoxia Osteoarthritis Pulmonary nodule 9mm RUL initial ct 08/[address] elevation myocardial infarction (STEMI) of inferior wall Surgical History (Updated 12/08/19 @ 08:22 by Sarah Corbett MA) H/O heart artery stent History of lumbar discectomy History of palate surgery History of surgery [place] Family History (Updated 12/08/19 @ 08:24 by Sarah Corbett MA) Mother Myocardial infarction Father Cancer Malignant Pancreatic Neoplasm Other Family history non-contributory Hypertension Social History Smoking Status: Former smoker Cigarettes Per Day: UP TO 100; Hx Alcohol Use: No Hx Substance Use: No Preferred Language: Yakut Communication Ability: Effective Extension Specialist Required: No Beliefs That Will Affect Care: None marital status: Current Living Situation: Spouse Current Living Situation Comment: ranch house current occupational status: retired Feels Safe at Home: Yes Safety Concerns: Feels Safe At This Time Assistive Devices: Oxygen - Continuous Review of Systems Review of Systems: The patient denies chest pain, palpitations, sore throat, fevers, chills, sweats, nausea, vomiting, diarrhea , constipation, abdominal pain, pelvic pain, blood in urine or stool, dysuria, urinary frequency or urgency, lightheadedness, dizziness, headache, memory loss, loss of consciousness, rash, abnormal bruising or bleeding, imbalance, focal or generalized weakness, numbness or tingling in arms or legs, generalized arthralgias or myalgias, back or neck pain, or night sweats. The review of systems is otherwise negative other than for that already noted above, and at least 10 systems have been reviewed. Physical Exam Physical Exam: The patient is awake, alert and oriented 3, well developed and well nourished, normocephalic and atraumatic, lying in bed and in no acute distress. HEENT--PERRL, EOMI, mucous membranes and oropharynx normal. Neck--supple. No JVD. No bruits. Thyroid normal, trachea midline, no adenopathy. Heart--normal S1 and S2. No murmurs, rubs or gallops. Lungs--coarse breath sounds bilaterally. No respiratory distress, no accessory muscle use. Abdomen--normal bowel sounds and soft. Nontender. Nondistended. Obese. Extremities--no cyanosis or clubbing. 3+ bilateral pretibial pitting edema. Dermatologic--normal skin turgor, normal color, no abnormal lymph nodes, no rash. Neurologic--cranial nerves II through XII grossly intact. Rheumatologic--normal range of motion. Psychiatric--normal affect. Results & Data Results & Data ([facility]) Vital Signs (Past 12 Hours) Vital Signs Temp Pulse Resp BP Pulse Ox 07/01/20 22:01 72 18 173/76 H 98 07/01/20 21:00 67 18 190/88 H 98 07/01/20 19:30 68 22 192/91 H 95 07/01/20 19:00 67 20 196/80 H 95 07/01/20 18:49 65 19 178/105 H 94 07/01/20 18:43 69 22 88 L 07/01/20 18:28 71 22 94 07/01/20 17:22 99.7 F H 71 22 115/66 94 Laboratory Results Laboratory Results WBC 6.20 K/uL (4.8-10.8) 07/01/20 18:46 RBC 3.70 M/uL (4.7-6.1) L 07/01/20 18:46 Hgb 8.3 g/dL (14.0-18.0) L 07/02/20 00:50 Hct 29.0 % (42-52) L 07/02/20 00:50 MCV 73.8 fL (80-100) L 07/01/20 18:46 MCH 21.4 pg (25-34) L 07/01/20 18:46 MCHC 28.9 g/dL (32-36) L 07/01/20 18:46 RDW Std Deviation 47.9 fL (36.4-46.3) H 07/01/20 18:46 RDW Coeff of Mario 17.7 % (11.5-14.5) H 07/01/20 18:46 Plt Count 187 K/uL (130-400) 07/01/20 18:46 MPV 9.7 fL (7.4-10.4) 07/01/20 18:46 Immature Gran % (Auto) 0.2 % 07/01/20 18:46 Neut % (Auto) 61.4 % 07/01/20 18:46 Lymph % (Auto) 24.8 % 07/01/20 18:46 Archuleta % (Auto) 9.7 % 07/01/20 18:46 Eos % (Auto) 3.7 % 07/01/20 18:46 Baso % (Auto) 0.2 % 07/01/20 18:46 Neut # (Auto) 3.81 K/uL (1.4-6.5) 07/01/20 18:46 Lymph # (Auto) 1.54 K/uL (1.2-3.4) 07/01/20 18:46 Archuleta # (Auto) 0.60 K/uL (0.11-0.59) H 07/01/20 18:46 Eos # (Auto) 0.23 K/uL (0-0.5) 07/01/20 18:46 Baso # (Auto) 0.01 K/uL (0-0.2) 07/01/20 18:46 Immature Gran # (Auto) 0.01 K/uL (0.00-0.02) 07/01/20 18:46 Hypochromasia Present 07/01/20 18:46 Tear Drop Cells 1+ 07/01/20 18:46 Echinocytes 1+ 07/01/20 18:46 PT 12.1 Seconds (9.0-12.0) H 07/01/20 18:46 INR 1.2 (0.9-1.1) H 07/01/20 18:46 APTT 30.2 Seconds (21.0-31.0) 07/01/20 18:46 PTT Ratio 1.1 07/01/20 18:46 Sodium 142 mmol/L (136-145) 07/01/20 18:46 Potassium 4.1 mmol/L (3.5-5.1) 07/01/20 18:46 Chloride 112 mmol/L (98-107) H 07/01/20 18:46 Carbon Dioxide 24 mmol/L (21-32) 07/01/20 18:46 Anion Gap 6.0 (3-11) 07/01/20 18:46 BUN 17 mg/dl (7-18) 07/01/20 18:46 Creatinine 1.10 mg/dl (0.6-1.4) 07/01/20 18:46 Est Cr Clr Drug Dosing 62.6 ml/min 07/01/20 18:46 Est GFR ( Amer) 73.1 07/01/20 18:46 Est GFR (Non-Af Amer) 63.1 07/01/20 18:46 BUN/Creatinine Ratio 15.5 (10-20) 07/01/20 18:46 Glucose 86 mg/dl (70-99) 07/01/20 18:46 Calcium 8.8 mg/dl (8.5-10.1) 07/01/20 18:46 Total Bilirubin 0.5 mg/dl (0.2-1) 07/01/20 18:46 AST 41 U/L (15-37) H 07/01/20 18:46 ALT 41 U/L (12-78) 07/01/20 18:46 Alkaline Phosphatase 257 U/L (45-117) H 07/01/20 18:46 Troponin I < 0.015 ng/ml (0-0.045) 07/01/20 18:46 NT-Pro-B Natriuret Pep 593 pg/ml (0-1800) 07/01/20 18:46 Total Protein 7.5 gm/dl (6.4-8.2) 07/01/20 18:46 Albumin 3.3 gm/dl (3.4-5.0) L 07/01/20 18:46 Globulin 4.2 gm/dl (2.5-4.0) H 07/01/20 18:46 Albumin/Globulin Ratio 0.8 (0.9-2) L 07/01/20 18:46 Lipase 114 U/L (73-393) 07/01/20 18:46 Blood Type O Positive 07/01/20 20:16 Antibody Screen POSITIVE A 07/01/20 20:16 Diagnostic Findings [facility] [place] [phone] XRay Report Patient: OJSHUA ALRSEN DAdmit Date: 07/01/20 MR#: [id number]: [address] Acct ID:[id number]: Date: 1940City Zip: [place] [address] Age: 79Location: ED Sex: MRoom/Bed: Att Phy:Diagnosis: ABNORMAL EKG, DR CERVANTES SENT OVER Sima Phy: Letty Momin MDService Date: 07/01/20 Fam Phy:Interpreting Phy: Yan Clements MD Admit Phy: Ordering Phy: Suman Davis, DO cc: ~ SINGLE VIEW CHEST CLINICAL HISTORY: Atypical chest pain. FINDINGS: An AP, portable, upright chest radiograph is compared to study dated 12/07/2019 and correlated with chest CT dated 11/23/2019. The examination is degraded by portable technique and apical lordotic positioning. The heart is enlarged noting atherosclerotic calcification of the thoracic aorta. There is prominence of the pulmonary vasculature. Emphysematous change is noted with chronic interstitial thickening. Superimposed airspace consolidation is suspected at the left lung base in the retrocardiac region. No large pleural effusion or pneumothorax is seen. The skeletal structures are osteopenic. The bony thorax is grossly intact. IMPRESSION: 1. Cardiomegaly and emphysema with prominence of the pulmonary vasculature. Correlate clinically for evidence of mild congestive failure. 2. Suspect superimposed airspace consolidation at the left lung base in the retrocardiac region. Correlate clinically for evidence of an infectious/inflammatory pneumonitis. Radiographic follow-up to resolution is recommended. Follow-up should include both PA and lateral views. ACT 112: Negative or not required by law. Electronically signed by: Yan Clements M.D. 07/01/2020 6:28 PM Dictated: 07/01/201825 Transcribed: 07/01/201825 Code Status & VTE Plan Code Status Full code VTE Prophylaxis Plan VTE Prophylaxis will be ordered: Yes PG Care Time/CCT Total # of Minutes Spent Total Time Spent with Patient: Total time spent is greater than 50% in coordination of care (as documented) at patient's floor/unit and/or counseling patient: Coding Level of Care Code 28913 Initial Inpt Care Lvl 3 Diagnoses Acute on chronic respiratory failure with hypoxia J96.21 Community acquired pneumonia of left lower lobe of lung J18.9 Acute exacerbation of CHF (congestive heart failure) I50.9 Upper GI bleed K92.2 Symptomatic anemia D64.9 CAD (coronary artery disease) I25.10 RIK (obstructive sleep apnea) G47.33 Hyperlipidemia E78.5 Hypertension I10 Hypertension type: unspecified (1) Hypertension Hypertension type: unspecified Qualified Code(s): I10 - Essential (primary) hypertension
[2020-07-01] MEDS ORDERED: ONDANSETRON INJ 2 MG/ML 2 ML VIAL IV PRN (23:33)
[2020-07-01] MEDS ORDERED: ACETAMINOPHEN 325 MG TAB PO PRN (23:33)
[2020-07-02 01:02] LABS: Hemoglobin 8.3 g/dL (14.0-18.0)
[2020-07-02 06:28] LABS: INR 1.2 (0.9-1.1); Partial Thromboplastin Ratio 1.1; Prothrombin Time 12.3 Seconds (9.0-12.0)
[2020-07-02 07:00] LABS: Albumin Globulin Ratio 0.8 (0.9-2); BUN Creatinine Ratio 13.7 (10-20); Bilirubin,Total 0.5 mg/dl (0.2-1); Calcium 8.4 mg/dl (8.5-10.1); Est GFR (African American) 72.3; Est GFR (Non-African American) 62.4; Magnesium 2.3 mg/dl (1.8-2.4); Potassium 3.4 mmol/L (3.5-5.1); Troponin I 0.016 ng/ml (0-0.045)
[2020-07-02] MEDS ORDERED: PERFLUTREN LIPID MICROSPHERE (DEFINITY) IV ONE (07:29)
[2020-07-02 07:44] LABS: Hematocrit (blood only) 26.3 % (42-52); Hemoglobin 7.6 g/dL (14.0-18.0)
[2020-07-02] MEDS ORDERED: FUROSEMIDE 40 MG in SYRINGE 0 ML IV SCH (08:00)
[2020-07-02] MEDS ORDERED: FUROSEMIDE 40 MG/4 ML VIAL IV SCH (08:00)
[2020-07-02] MEDS: PANTOprazole 40 MG in SYRINGE 0 ML IV SCH (08:16)
[2020-07-02] MEDS ORDERED: AZITHROMYCIN 500 MG in DEXTROSE 5% 250 ML IV SCH (09:00)
--- NOTE | 2020-07-02 10:01 | Electrocardiogram Report ---
Test Reason : Blood Pressure : / mmHG Vent. Rate : 067 BPM Atrial Rate : 067 BPM P-R Int : 190 ms QRS Dur : 084 ms QT Int : 422 ms P-R-T Axes : 061 027 050 degrees QTc Int : 445 ms Normal sinus rhythm Normal ECG When compared with ECG of 08-DEC-2019 06:50, No significant change was found Confirmed by Kamlesh Petty ([id number]) on 07/02/2020 10:00:56 AM Referred By: Yovanny Ahumada Confirmed By:Kamlesh Petty
--- NOTE | 2020-07-02 10:17 | Electrocardiogram Report ---
Test Reason : Blood Pressure : / mmHG Vent. Rate : 073 BPM Atrial Rate : 073 BPM P-R Int : 182 ms QRS Dur : 080 ms QT Int : 426 ms P-R-T Axes : 059 066 084 degrees QTc Int : 469 ms Normal sinus rhythm Inferolateral ST depression consider ischemia Abnormal ECG When compared with ECG of 01-JUL-2020 18:28, (unconfirmed) ST depression is slightly worse Confirmed by Kamlesh Petty ([id number]) on 07/02/2020 10:17:25 AM Referred By: Yovanny Ahumada Confirmed By:Kamlesh Petty
[2020-07-02 10:53] LABS: Hematocrit (blood only) 27.9 % (42-52)
[2020-07-02 11:13] LABS: BUN Creatinine Ratio 12.5 (10-20); Blood Urea Nitrogen 15 mg/dl (7-18); Calcium 8.7 mg/dl (8.5-10.1); Carbon Dioxide 26 mmol/L (21-32); Chloride 109 mmol/L (98-107); Creatinine Clr Calc Pharmacy 56.4 ml/min; Est GFR (African American) 65.8; Est GFR (Non-African American) 56.8; Glucose 112 mg/dl (70-99); Potassium 3.5 mmol/L (3.5-5.1); Sodium 142 mmol/L (136-145)
[2020-07-02 11:18] LABS: Troponin I < 0.015 ng/ml (0-0.045)
--- NOTE | 2020-07-02 11:31 | Hospitalist Progress Note ---
Date of Service July 02, 2020 Assessment & Plan (1) Acute on chronic respiratory failure with hypoxia: Patient was here PD the gold class C Recently changed to Trelegy as an outpatient Currently not on any inhalers or nebulizer treatments and patient Uses Trelegy at home. We will start Anoro Ellipta (AC/LABA) and fluticasone furoate (ICS) Continue to wean supplemental oxygen as tolerated to maintain SaO2 between 88 and 92% Ambulate as tolerated Out of bed to chair as tolerated (2) Acute exacerbation of CHF (congestive heart failure): Echocardiogram completed with grade 1 diastolic dysfunction Some mild aortic calcification and stenosis Continue diuresis Follow strict ins and outs (3) Community acquired pneumonia of left lower lobe of lung: Opacification noted left lower lobe Would continue with 5 days of antibiotics Repeat chest x-ray tomorrow with PA/lateral Oxygenation improving Afebrile Continue supplemental O2 to maintain SaO2 of 88 to 92%. (4) Acute GI bleeding: No hematemesis, melena, bright red blood per rectum, hematochezia Patient is on Plavix and aspirin for CAD. These have been held Serial H&H shows a stable hemoglobin at around 8 No indication for transfusion at this time Continue to follow. No clear indication for gastroenterology at this time Patient does have antibodies and requires blood from [place] Continue with serial H&H Continue pantoprazole 40 mg twice daily IV We will advance diet to clear liquids (5) Symptomatic anemia: Question of GI bleed but no acute bleeding noticed Hemoglobin stable around 8 g/Zaida Continue to follow serial labs Oxygenation improving Patient feels like he is back at baseline (6) CAD (coronary artery disease): Follows with Dr. Robert Ahumada Previous PCI with stent to the RCA Plavix and aspirin held due to acute GI bleed Continue with metoprolol Continue on telemetry (7) RIK (obstructive sleep apnea): Patient on CPAP at home with 11 cm of water Bleeds in 2 L/min Continue same settings while inpatient (8) Anxiety disorder due to medical condition: Patient emotionally labile Is on temazepam at home HS Also uses lorazepam 0.5 mg twice daily as needed Patient may benefit from SSRI (9) CKD (chronic kidney disease) stage 3, GFR 30-59 ml/min: BUN 15/creatinine 1.2 Baseline creatinine appears to be around 1.2 Continue to follow serial labs Good urinary output with furosemide with no evidence of obstructive uropathy (10) Pulmonary nodule: Patient was stable pulmonary nodule Follows with Dr. Carbajal in the outpatient clinic Continue outpatient monitoring (11) Lumbar radiculopathy: No acute pain in legs at this time Encourage ambulation and diuresis No difficulty with straight leg raise on exam (12) DVT prophylaxis: Patient on clopidogrel and aspirin for CAD Last dose of clopidogrel 07/01/2020 No chemical prophylaxis secondary to acute GI bleed with symptomatic anemia Ambulate as tolerated RADHA whitehead SCDs Please refer to Dr. Montes's addendum for further recommendations Admission and Anticipated Discharge Date Admission Date: July 01, 2020 Subjective Attending: Dr. Chaitanya Montes This is an 80-year-old male that was admitted yesterday for bilateral lower extremity edema and weakness. He has a history of CAD and stenting with most recent PCI 03/10/[address] Garrett Ahumada. He follows with [facility]. He is very depressed and emotional today. He is estranged from his 2 children. His had a stroke 6 to 7 months ago. 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 He was found to be anemic on admission and had positive guaiac. He does have antibodies and blood is not available for him at this time. I did speak with blood bank and they are waiting for an order for PRBCs before ordering from [place]. I repeated the H&H this morning and hemoglobin is stable at 8.0. Patient denies any nausea or vomiting or hematemesis. He has no melena, hematochezia, bright red blood per rectum. He has no abdominal pain or distention. He denies any fever or chills. He has no chest pain or tightness. Patient has no other acute complaints. Review of Systems Review of Systems: All systems reviewed & are unremarkable except as noted in Subjective Physical Exam Physical Exam: GENERAL : No acute distress. Tearful EYES: No icterus, gaze conjugate NOSE: No evidence of epistaxis. Nasal cannula is in place and secure MOUTH: No lesions or candidiasis. Mucosa is moist NECK: Supple LUNGS: CTA B/L, no wheezes, rales or rhonchi HEART: Regular, rate controlled. 2/6 murmur in the second right intercostal space. No appreciation of ectopy ABDOMEN: Soft, NT, ND, BS Present EXTREMITIES: +3 bilateral LE edema, pedal pulses intact and equal bilaterally NEURO: A&OX3 Results & Data Results & Data ([facility]) Vital Signs (Past 12 Hours) Vital Signs Temp Pulse Pulse Pulse Resp BP BP 07/02/20 07:29 36.8 C 74 18 144/68 H 07/02/20 07:18 66 07/02/20 02:50 36.3 C L 74 18 145/57 H 07/02/20 02:18 76 16 07/02/20 00:00 37 C 77 18 137/52 L Pulse Ox 07/02/20 07:29 91 07/02/20 07:18 07/02/20 02:50 96 07/02/20 02:18 94 07/02/20 00:00 98 Laboratory Results 07/02/20 10:39 07/02/20 10:39 INR 1.2 (0.9-1.1) H 07/02/20 05:29 07/01/20 07/02/20 07/02/20 18:46 05:29 10:39 Troponin I < 0.015 0.016 < 0.015 Diagnostic Findings Echocardiogram 07/02/2020 Summary: The left ventricle is normal in size Mild concentric left ventricular hypertrophy Left ventricular ejection fraction 60 to 65% Left ventricular systolic function is normal Left ventricular wall motion is normal The right ventricle is normal in size and function The left atrium is mildly dilated Grade 1 diastolic dysfunction (abnormal relaxation pattern) The aortic valve is heavily calcified with mild aortic stenosis There is mild pulmonic valvular regurgitation There is trace mitral regurgitation There is trace tricuspid regurgitation Normal right atrial pressure 3 mmHg SINGLE VIEW CHEST 07/01/2020: CLINICAL HISTORY: Atypical chest pain. FINDINGS: An AP, portable, upright chest radiograph is compared to study dated 12/07/2019 and correlated with chest CT dated 11/23/2019. The examination is degraded by portable technique and apical lordotic positioning. The heart is enlarged noting atherosclerotic calcification of the thoracic aorta. There is prominence of the pulmonary vasculature. Emphysematous change is noted with chronic interstitial thickening. Superimposed airspace consolidation is suspected at the left lung base in the retrocardiac region. No large pleural effusion or pneumothorax is seen. The skeletal structures are osteopenic. The bony thorax is grossly intact. IMPRESSION: 1. Cardiomegaly and emphysema with prominence of the pulmonary vasculature. Correlate clinically for evidence of mild congestive failure. 2. Suspect superimposed airspace consolidation at the left lung base in the re trocardiac region. Correlate clinically for evidence of an infectious/inflammatory pneumonitis. Radiographic follow-up to resolution is recommended. Follow-up should include both PA and lateral views. ACT 112: Negative or not required by law. Electronically signed by: Yan Clements M.D. 07/01/2020 6:28 PM ECG Additional Comments: DICTATED BY: Kamlesh Petty, DO Test Reason : Blood Pressure : / mmHG Vent. Rate : 073 BPM Atrial Rate : 073 BPM P-R Int : 182 ms QRS Dur : 080 ms QT Int : 426 ms P-R-T Axes : 059 066 084 degrees QTc Int : 469 ms Normal sinus rhythm Inferolateral ST depression consider ischemia Abnormal ECG When compared with ECG of 01-JUL-2020 18:28, (unconfirmed) ST depression is slightly worse Confirmed by Kamlesh Petty ([id number]) on 07/02/2020 10:17:25 AM Referred By: Yovanny Ahumada Confirmed By:Kamlesh Petty PG Care Time/CCT Total # of Minutes Spent Total Time Spent with Patient: Total time spent is greater than 50% in coordination of care (as documented) at patient's floor/unit and/or counseling patient: 60 minutes with 45 minutes at bedside discussing with patient Coding Level of Care Code 00062 Inpt Consult Level 3 Diagnoses Acute on chronic respiratory failure with hypoxia J96.21 Acute exacerbation of CHF (congestive heart failure) I50.9 Community acquired pneumonia of left lower lobe of lung J18.9 Acute GI bleeding K92.2 Symptomatic anemia D64.9 CAD (coronary artery disease) I25.10 RIK (obstructive sleep apnea) G47.33 Anxiety disorder due to medical condition F06.4 CKD (chronic kidney disease) stage 3, GFR 30-59 ml/min N18.3 Pulmonary nodule R91.1 Lumbar radiculopathy M54.16 DVT prophylaxis Z29.9
[2020-07-02] MEDS ORDERED: FLUTICASONE FUROATE 200MCG 14 PUFFS/INHALER INH SCH (12:45)
[2020-07-02] MEDS ORDERED: UMECLIDINIUM/VILANTEROL 62.5/25MCG 7 PUFFS/INHALER INH SCH (12:45)
--- NOTE | 2020-07-02 22:11 | Discharge Summary ---
Date of Service July 02, 2020 Admission HPI Per Admitting Provider The patient is an 79-year-old male with a past medical history including CAD, chronic respiratory failure with hypoxia, RIK, emphysema, anxiety disorder, generalized osteoarthritis of multiple sites, history of STEMI, hyperglycemia, hyperlipidemia, LVH, lumbar radiculopathy, RCA DARWIN, seborrheic dermatitis, CKD stage III, pulmonary nodule, hypertension, and hypertension. The patient presents with symptoms as noted above. He also notes lower extremity edema gradually worsening just during this time as well. He typically wears CPAP at nighttime. He has a cough which is occasionally productive. Principal Diagnosis CHF and likely slow GI bleed Discharge Exam Constitutional WD/WN, vitals as above Eyes EOM intact bilaterally; no conjunctival abnormality ENMT external ear and nose normal, oropharynx normal Neck trachea midline, no thyromegaly normal visual inspection Respiratory normal respiratory effort, lungs clear to auscultation no respiratory distress Cardiovascular Rate/Rhythm: regular rate and regular rhythm Extremities: + edema Gastrointestinal (Abdomen) Inspection/Auscultation: abdomen normal to inspection; abdomen not distended Musculoskeletal no cyanosis or clubbing, extremities motor strength 5/5 Skin no rashes, warm and dry Neurologic moves all extremities and awake Psychiatric Orientation: alert, oriented to person and cooperative Discharge Data Allergies Allergy/AdvReac Type Severity Reaction Status Date / Time No Known Allergies Allergy Verified 07/01/20 15:40 Consultations 07/01/20 19:43 ED Decision to Admit Stat 07/01/20 23:33 Consult Case Management - Discharge Planning Routine Hospital Course (1) Acute on chronic respiratory failure with hypoxia: Acute on chronic respiratory failure with hypoxia- 1) Mostly felt to be due to CHF. He rebounded overnight with Lasix and requested to go home on 07/02. He had recently been on Lasix, but that had been help by outpatient provider. Restarted for him. 2) Community-acquired pneumonia left lower lobe of lung -> Possible, though CXR was equivocal. Given overall picture, I believe CHF was more likely, but I did discharge on azithromycin x 5 days. 3) Symptomatic anemia due to upper GI bleed - Definitely possible contributing, but less likely as hgb was stable throughout admission, and he'd had no symptoms of acute GI bleed. (2) Acute exacerbation of CHF (congestive heart failure): Acute exacerbation of CHF/CAD/hypertension/RCA DARWIN. - Echo this admission showed EF 60-65%. Continue metoprolol tartrate 25 mg p.o. twice daily. Follow serial BMP and magnesium levels. (3) Community acquired pneumonia of left lower lobe of lung: Community-acquired pneumonia of left lower lobe of lung- Place on ceftriaxone 1 g IV daily, and azithromycin 500 mg IV daily. (4) Acute GI bleeding: (5) Symptomatic anemia: Likely causing an element of high-output CHF. Hemoglobin 7.9 upon admission. Planned to give transfusion, but no blood available due to antibodies. Given the stability of his hemoglobin, this was cancelled. The patient very much wanted to leave the hospital, so I did loan counselor him and his daughter to hold ASA and see GI in the near future for possible EGD. (6) CAD (coronary artery disease): His stent was in 10/2018. 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 (7) RIK (obstructive sleep apnea): Patient will be fit with in hospital CPAP for the evening, but will attempt to bring his own CPAP in tomorrow if still in hospital (8) Anxiety disorder due to medical condition: (9) CKD (chronic kidney disease) stage 3, GFR 30-59 ml/min: (10) Pulmonary nodule: (11) Lumbar radiculopathy: (12) DVT prophylaxis: Total Time Total Time Spent Total Time Spent (In Minutes): 35 Discharge Plan Discharge Items Patient Disposition: Home - Self-Care Reason For Visit: ANEMIA, CHF, PNEUMONIA Discharge Diagnosis: CHF, anemia Activity: Resume your previous activity Non-emergency contact: Primary Care Provider, Rib Bender and Math Instructor Call non-emergency contact if: your symptoms worsen Follow-up/Referrals: Letty Momin MD [Primary Care Provider] - Diet: Heart Healthy and Low Sodium (2gm) Addtl Attending Provider Instructions: You were admitted with shortness of breath that was from 3 separate issues: 1) You had a build up of fluid on the legs and the lungs. We call this a CHF exacerbation. It sounds like this has been building up for at least a few weeks, or even longer. You felt a lot better after just a few doses of Lasix, and we are sending you home on a pill version of this medication. Your weight here is 221 lbs on our scale. Please weigh yourself at home on your scale and make sure you are staying steady or gradually losing weight. 2) You have anemia which means your red blood cells (or hemoglobin) is lower than it was during your last check in November of this year. Because you're on the aspirin and Plavix for your heart, your blood is thinner, and we suspect you have a small/slow bleed in the stomach. We are doing two things for this: 1) Stopping your baby aspirin (81 mg) for now. Dr. Ahumada was ok with this and approved the change. 2) Starting you on an acid blocking medication 2 times per day for a month or until you see the GI doctor. 3) You may have a slight pneumonia. We are sending you home on azithromycin for [address] Momin on Saturday for a check of your hemoglobin. She can refer you to a GI doctor to discuss a possible scope of your stomach to ensure there is no active bleeding. She will also check your leg swelling and weight to see how much fluid is coming off. Pending Studies at Discharge: No Stand-Alone Forms: My [facility], Smoking Cessation Medications and DC Order Prescriptions: New furosemide 40 mg tablet 40 mg PO DAILY Qty: 30 RF: 0 azithromycin 250 mg tablet 250 mg PO DAILY 5 Days Qty: 5 RF: 0 pantoprazole 40 mg tablet,delayed release (DR/EC) 40 mg PO BID Qty: 60 RF: 0 Continued (DME) Oxygen Home Liters Per Minute See Rx Instructions .ROUTE .MEDSUPPLY Qty: 1 RF: 0 lisinopril 5 mg tablet 5 mg PO QPM Qty: 90 RF: 3 atorvastatin 80 mg tablet 80 mg PO DAILY Qty: 90 RF: 3 (DME) CPAP Supplies [facility] See Rx Instructions .ROUTE .MEDSUPPLY Qty: 1 RF: 0 lorazepam [Ativan] 0.5 mg tablet 0.5 mg PO BID PRN (Reason: Anxiety) Qty: 45 RF: 0 Trelegy Ellipta 100-62.5-25 mcg blister with device 1 inh inhalation DAILY Qty: 60 RF: 3 albuterol sulfate [Ventolin HFA] 90 mcg/actuation HFA aerosol inhaler 2 inh INH Q6H PRN (Reason: Shortness Of Breath) Qty: 18 RF: 3 Mucinex DM 30-600 mg tablet extended release 12 hr 1 tab PO Q12H PRN (Reason: cough) Qty: 60 RF: 2 pantoprazole 40 mg tablet,delayed release (DR/EC) 40 mg PO DAILY Qty: 30 RF: 0 metoprolol tartrate 25 mg tablet 25 mg PO BID Qty: 30 RF: 6 temazepam 7.5 mg capsule 7.5 mg PO HS PRN (Reason: Sleep) RF: 0 clopidogrel 75 mg Tablet 75 mg PO QAM Qty: 90 RF: 3 loratadine 10 mg Tablet 10 mg PO DAILY RF: 0 fluticasone propionate [Allergy Relief (fluticasone)] 50 mcg/actuation spray,suspension 1 spray intranasal DAILY PRN (Reason: Nasal Congestion) RF: 0 Discontinued aspirin 81 mg Tablet,Delayed Release (Dr/Ec) 81 mg PO HS RF: 0 Discharge Orders: Discharge Order (Routine); Ordered 07/02/20 Ordered By: Chaitanya Montes Admission Data Admit Date/Time: 07/01/20 20:28 Attending Provider: Chaitanya Montes Admit Provider: Manuel Cobb Primary Care Provider: Letty Momin Other Providers: Chaitanya Montes Other Interventions: Discharge Summary Assessment (RN) Last Done: 07/02/20 15:16 Coding Level of Care Code D/C Day Management >30 mins Diagnoses Acute on chronic respiratory failure with hypoxia J96.21 Acute exacerbation of CHF (congestive heart failure) I50.9 Community acquired pneumonia of left lower lobe of lung J18.9 Acute GI bleeding K92.2 Symptomatic anemia D64.9 CAD (coronary artery disease) I25.10 RIK (obstructive sleep apnea) G47.33 Anxiety disorder due to medical condition F06.4 CKD (chronic kidney disease) stage 3, GFR 30-59 ml/min N18.3 Pulmonary nodule R91.1 Lumbar radiculopathy M54.16 DVT prophylaxis Z29.9
== END 2020-07-02 15:53 | disposition home or self-care (01) | DRG 291 ==
LOC: ED 17:01 → EDINP 20:28 → SUATTDRO 20:28 → EDINP 07-02 01:39 → 2N 07-02 01:57

== ENCOUNTER 2021-10-02 13:35 | Inpatient (IN) ==
--- NOTE | 2021-10-02 14:04 | Emergency Department Note ---
Impression & Plan Hypoxemia, COPD (chronic obstructive pulmonary disease), Low back pain, Hypocalcemia, Pneumonia due to 2019 novel coronavirus ED Provider Note NAME: JOSHUA LARSEN AGE: 81 SEX: M : 1940 ARRIVES VIA: Walk-In INFORMANT: Patient, ED PROVIDER(S): Brennan Saba MD Chief Complaint: Shortness of breath, feet fatigue, back pain HPI: Patient does present with daughter. The patient has had progressively wors ening shortness of breath feelings of fatigue and low back pain. The patient reportedly has been urinating well but the daughter is not sure as to whether or not he has. The patient is of history of CKD stage III COPD and RIK. The patient does use a BiPAP as well as nighttime oxygen but the patient has had to use it today upon presentation was 83%. The patient does have a wet sounding cough but it is not productive. 2 family members tested positive for COVID several weeks ago. The patient is vaccinated for COVID and believe the flu but is not received a booster. Patient does feel better at rest and with sitting upright. The patient has had some lower extremity edema which is worse compared to prior. No prior history of DVT or PE. The patient does have chronic right greater than left lower extremity edema. Patient has been taking his normal medications at home but is not had improvement in symptoms. Patient denies any numbness tingling or focal weakness in the lower extremities and denies any bowel or bladder incontinence. 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 ROS: See HPI for pertinent positives and negatives. A total of 10 systems were reviewed and otherwise negative. Past medical history: See below Surgical history: See below Social history: See below Physical Exam: GENERAL: NAD, wearing glasses, wearing a mask, non-toxic. EYE EXAM: Normal conjunctiva. PERRL, no anisocoria and EOM's grossly intact w/o pain. NECK: Supple, no nuchal rigidity, no adenopathy, non-tender. No signs of meningismus. LUNGS: Clear to auscultation. Normal chest wall mechanics. HEART: NSR, no MRG. ABDOMEN: Abdomen soft, non-tender, normo-active bowel sounds, no masses, no rebound or guarding. BACK: No CVA TTP. SKIN: No rashes and no bruising. UPPER EXTREMITIES: Upper extremities are grossly normal. LOWER EXTREMITIES: Right greater than left lower extremity edema. Negative Homans' sign bilaterally. NEURO EXAM: A&O x3, cranial nerves II-XII grossly intact, normal speech, moves all 4 extremities on command w/o issue. Differential diagnoses: Reactive airway disease, pneumonia, pneumothorax, COPD, CHF, infections, cardiac ischemia, pulmonary embolism, musculoskeletal, gastrointestinal, as well as other pathologies. Course: Patient was seen and evaluated the bedside. Full history physical exam was performed. EKG interpreted by me Normal sinus rhythm, rate 65, normal intervals, normal axis, no obvious ST elevations. Imaging Studies: See Below Cardiac monitoring: An order was placed for continuous cardiac monitoring. The monitor shows a rate of 82 with sinus rhythm. MDM: Patient was seen due to concern for shortness of breath and cough. Blood work was obtained. The patient was also treated symptomatically. The patient does have leukopenia and anemia. The patient does have thrombocytopenia. patient's VBG does not show any hypercarbia. Creatinine added about baseline. The patient's hemoglobin appears to be a drop from November of last year although insurance would not this was apparent as the patient's hemoglobin prior to that was at about baseline. [id number] Hemoccult was completed and was negative. Patient did have hypocalcemia and was ordered replacement. Mild elevations in AST ALT and alk phos but the patient has had elevations in these in the past. Procalcitonin is not elevated. COVID positive flu and RSV negative. Chest x- ray does show concern for pneumonia. Patient was ordered dexamethasone. CT showed questionable inflammatory change adjacent to the nondistended gallbladder but could be due to motion artifact. The patient has no right upper quadrant pain.The patient has been maintained on his nasal cannula supplemental oxygen. I did speak the on-call hospitalist and the patient was admitted to the medicine service by Dr. Granados. Critical Care: I have personally spent 42 minutes of critical care time in direct management of this patient. This includes bedside care, interpretation of diagnostic studies, and testing, discussion with consultants, patient, and family members, and other require inpatient management activities. This 42 minutes is in excess of all separately billable procedures. 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 GERD (gastroesophageal reflux disease) Hyperlipidemia Hypertension On home oxygen therapy 2lpm via n/c PRN during the day Osteoarthritis Pneumonia hx - no problems currently Pulmonary nodule 9mm RUL initial ct 08/2019 Sensorineural hearing loss (SNHL) of left ear with restricted hearing of right ear Sensorineural hearing loss (SNHL) of right ear with restricted hearing of left ear Shortness of breath with exertion Sleep apnea CPAP with 2lpm via HS ST elevation myocardial infarction (STEMI) of inferior wall September 2018 Surgical History H/O heart artery stent x2 stents @ [facility] 10/2018. Dr Ahumada. History of cardiac cath History of colonoscopy History of esophagogastroduodenoscopy (EGD) History of lumbar discectomy History of palate surgery History of surgery [place] ?? Family History Mother Myocardial infarction Father Cancer Malignant Pancreatic Neoplasm Other Family history non-contributory Heart disease Hypertension No family history of adverse response to anesthesia No family history of bleeding disorder Social History Smoking Status: Former smoker Tobacco Type: Cigarettes Cigarettes Per Day: UP TO 100; Second Hand Exposure: No; Hx Alcohol Use: No Hx Substance Use: No Preferred Language: [place] Communication Ability: Effective Manager Of Planning Required: No Beliefs That Will Affect Care: None marital status: Current Living Situation: Spouse Current Living Situation Comment: ranch house current occupational status: retired Feels Safe at Home: Yes Assistive Devices: Cane, CPAP, Glasses and Oxygen - at Night Allergies Allergies Allergy/AdvReac Type Severity Reaction Status Date / Time No Known Allergies Allergy Verified 10/02/21 14:42 Home Meds Home Medications Medication Instructions Recorded Confirmed fluticasone propionate 50 1 spray INTRANASAL DAILY PRN 07/01/20 10/02/21 mcg/actuation nasal spray,suspension (Allergy Relief (fluticasone)) Previous Rx's Medication Instructions Recorded CPAP Supplies #1 ea 02/29/20 Oxygen Home #1 ea 03/01/20 CPAP Supplies #1 ea 12/29/20 atorvastatin 80 mg tablet 80 mg PO QAM #90 tab 06/08/21 furosemide 40 mg tablet (Lasix) 40 mg PO BID #180 tab 06/08/21 metoprolol tartrate 25 mg tablet 25 mg PO BID #180 tab 06/08/21 pantoprazole 40 mg tablet,delayed 40 mg PO BID #180 tab 06/08/21 release lorazepam 0.5 mg tablet (Ativan) 0.5 mg PO BID PRN #45 tab 08/18/21 Flutter Valve #1 ea 08/29/21 albuterol sulfate 90 mcg/actuation 2 inh INH Q6H PRN #18 g 08/29/21 aerosol inhaler (Ventolin HFA) fluticasone fur. 100 mcg-umeclid 1 inh INHALATION QAM #3 inhaler 08/29/21 62.5 mcg-vilant 25 mcg inhalat.powder (Trelegy Ellipta) clopidogrel 75 mg tablet 75 mg PO QAM #90 tab 10/02/21 lisinopril 5 mg tablet 5 mg PO HS #90 tab 10/02/21 sertraline 25 mg tablet 25 mg PO HS #90 tab 10/02/21 Results & Data (ED) Vital Signs Vital Signs - 24 hr 10/02/21 13:40 10/02/21 13:58 10/02/21 13:59 Temperature 37.0 C Temperature Source Temporal Artery Scan Pulse Rate 66 Pulse Rate [Apical] Respiratory Rate 18 32 H Respiratory Depth Blood Pressure 143/73 H Blood Pressure [Left Arm] Blood Pressure Mean 96 Blood Pressure Mean [Left Arm] Pulse Oximetry 97 83 L 92 Oxygen Delivery Method Room Air Room Air Nasal Cannula Oxygen Flow Rate 2 Sepsis Recent Fever Within 48 Hours No Sepsis New/Unexplained Change in Mental Status N/A Sepsis Action Taken by Nursing No Action Required 10/02/21 14:05 10/02/21 14:06 10/02/21 14:38 Temperature Temperature Source Pulse Rate Pulse Rate [Apical] 65 Respiratory Rate 18 Respiratory Depth Blood Pressure Blood Pressure [Left Arm] 151/70 H Blood Pressure Mean Blood Pressure Mean [Left Arm] 97 Pulse Oximetry 92 93 Oxygen Delivery Method Nasal Cannula Nasal Cannula Nasal Cannula Oxygen Flow Rate 2 2 2 Sepsis Recent Fever Within 48 Hours Sepsis New/Unexplained Change in Mental Status Sepsis Action Taken by Nursing 10/02/21 16:55 Temperature Temperature Source Pulse Rate Pulse Rate [Apical] 68 Respiratory Rate 18 Respiratory Depth Normal Blood Pressure Blood Pressure [Left Arm] 169/57 H Blood Pressure Mean Blood Pressure Mean [Left Arm] 94 Pulse Oximetry 92 Oxygen Delivery Method Nasal Cannula Oxygen Flow Rate 3 Sepsis Recent Fever Within 48 Hours Sepsis New/Unexplained Change in Mental Status Sepsis Action Taken by Nursing Laboratory Data Result diagrams: 10/02/21 14:08 10/02/21 14:08 Lab Results 10/02/21 10/02/21 10/02/21 Range/Units 14:08 14:08 14:08 WBC 3.29 L (4.8-10.8) K/uL RBC 3.33 L (4.7-6.1) M/uL Hgb 8.1 L (14.0-18.0) g/dL Hct 27.9 L (42-52) % MCV 83.8 (80-100) fL MCH 24.3 L (25-34) pg MCHC 29.0 L (32-36) g/dL RDW Std Deviation 57.2 H (36.4-46.3) fL RDW Coeff of Mario 18.9 H (11.5-14.5) % Plt Count 52 L (130-400) K/uL Immature Gran % (Auto) 1.2 % Neut % (Auto) 52.9 % Lymph % (Auto) 32.2 % [place] % (Auto) 12.8 % Eos % (Auto) 0.9 % Baso % (Auto) 0.0 % Neut # (Auto) 1.74 (1.4-6.5) K/uL Lymph # (Auto) 1.06 L (1.2-3.4) K/uL [place] # (Auto) 0.42 (0.11-0.59) K/uL Eos # (Auto) 0.03 (0-0.5) K/uL Baso # (Auto) 0.00 (0-0.2) K/uL Immature Gran # (Auto) 0.04 H (0.00-0.02) K/uL Platelet Estimate Decreased L (Normal) Giant Platelets 2+ Tear Drop Cells 1+ Ovalocytes 1+ PT 10.8 (9.0-12.0) Seconds INR 1.1 (0.9-1.1) APTT 35.3 H (21.0-31.0) Seconds PTT Ratio 1.3 VBG pH (7.36-7.41) VBG pCO2 (38-50) mmHg VBG pO2 mmHg VBG HCO3 mmol/L VBG O2 Saturation % VBG Base Excess mEq/L Barometric Pressure mm/Hg Sodium 141 (136-145) mmol/L Potassium 3.4 L (3.5-5.1) mmol/L Chloride 110 H (98-107) mmol/L Carbon Dioxide 23 (21-32) mmol/L Anion Gap 8 (3-11) BUN 18 (6-23) mg/dl Creatinine 1.47 H (0.6-1.4) mg/dl Est Cr Clr Drug Dosing 47.4 ml/min Est GFR ( Amer) 50.8 ml/min Est GFR (Non-Af Amer) 43.8 ml/min BUN/Creatinine Ratio 12.2 (10-20) Glucose 136 H (70-99(Fasting)) mg/dl Calcium 7.8 L (8.5-10.1) mg/dl Total Bilirubin 1.0 (0.2-1.0) mg/dl AST 118 H (13-39) U/L ALT 57 H (7-52) U/L Alkaline Phosphatase 352 H (34-104) U/L Troponin I 0.03 (0-0.04) ng/ml B-Natriuretic Peptide (0-100) pg/ml Total Protein 6.4 (6.0-8.3) gm/dl Albumin 3.2 L (3.4-5.0) gm/dl Globulin 3.2 (2.5-4.0) gm/dl Albumin/Globulin Ratio 1.0 (0.9-2) Procalcitonin (0-0.5) ng/ml Blood Type Antibody Screen 10/02/21 10/02/21 10/02/21 Range/Units 14:08 14:29 14:29 WBC (4.8-10.8) K/uL RBC (4.7-6.1) M/uL Hgb (14.0-18.0) g/dL Hct (42-52) % MCV (80-100) fL MCH (25-34) pg MCHC (32-36) g/dL RDW Std Deviation (36.4-46.3) fL RDW Coeff of Mario (11.5-14.5) % Plt Count (130-400) K/uL Immature Gran % (Auto) % Neut % (Auto) % Lymph % (Auto) % [place] % (Auto) % Eos % (Auto) % Baso % (Auto) % Neut # (Auto) (1.4-6.5) K/uL Lymph # (Auto) (1.2-3.4) K/uL [place] # (Auto) (0.11-0.59) K/uL Eos # (Auto) (0-0.5) K/uL Baso # (Auto) (0-0.2) K/uL Immature Gran # (Auto) (0.00-0.02) K/uL Platelet Estimate (Normal) Giant Platelets Tear Drop Cells Ovalocytes PT (9.0-12.0) Seconds INR (0.9-1.1) APTT (21.0-31.0) Seconds PTT Ratio VBG pH 7.39 (7.36-7.41) VBG pCO2 39 (38-50) mmHg VBG pO2 25 mmHg VBG HCO3 23 mmol/L VBG O2 Saturation < 60.0 % VBG Base Excess -2.1 mEq/L Barometric Pressure 716.7 mm/Hg Sodium (136-145) mmol/L Potassium (3.5-5.1) mmol/L Chloride (98-107) mmol/L Carbon Dioxide (21-32) mmol/L Anion Gap (3-11) BUN (6-23) mg/dl Creatinine (0.6-1.4) mg/dl Est Cr Clr Drug Dosing ml/min Est GFR ( Amer) ml/min Est GFR (Non-Af Amer) ml/min BUN/Creatinine Ratio (10-20) Glucose (70-99(Fasting)) mg/dl Calcium (8.5-10.1) mg/dl Total Bilirubin (0.2-1.0) mg/dl AST (13-39) U/L ALT (7-52) U/L Alkaline Phosphatase (34-104) U/L Troponin I (0-0.04) ng/ml B-Natriuretic Peptide 219 H (0-100) pg/ml Total Protein (6.0-8.3) gm/dl Albumin (3.4-5.0) gm/dl Globulin (2.5-4.0) gm/dl Albumin/Globulin Ratio (0.9-2) Procalcitonin 0.19 (0-0.5) ng/ml Blood Type Antibody Screen 10/02/21 10/02/21 Range/Units 15:28 16:45 WBC (4.8-10.8) K/uL RBC (4.7-6.1) M/uL Hgb (14.0-18.0) g/dL Hct (42-52) % MCV (80-100) fL MCH (25-34) pg MCHC (32-36) g/dL RDW Std Deviation (36.4-46.3) fL RDW Coeff of Mario (11.5-14.5) % Plt Count (130-400) K/uL Immature Gran % (Auto) % Neut % (Auto) % Lymph % (Auto) % [place] % (Auto) % Eos % (Auto) % Baso % (Auto) % Neut # (Auto) (1.4-6.5) K/uL Lymph # (Auto) (1.2-3.4) K/uL [place] # (Auto) (0.11-0.59) K/uL Eos # (Auto) (0-0.5) K/uL Baso # (Auto) (0-0.2) K/uL Immature Gran # (Auto) (0.00-0.02) K/uL Platelet Estimate (Normal) Giant Platelets Tear Drop Cells Ovalocytes PT (9.0-12.0) Seconds INR (0.9-1.1) APTT (21.0-31.0) Seconds PTT Ratio VBG pH (7.36-7.41) VBG pCO2 (38-50) mmHg VBG pO2 mmHg VBG HCO3 mmol/L VBG O2 Saturation % VBG Base Excess mEq/L Barometric Pressure mm/Hg Sodium (136-145) mmol/L Potassium (3.5-5.1) mmol/L Chloride (98-107) mmol/L Carbon Dioxide (21-32) mmol/L Anion Gap (3-11) BUN (6-23) mg/dl Creatinine (0.6-1.4) mg/dl Est Cr Clr Drug Dosing ml/min Est GFR ( Amer) ml/min Est GFR (Non-Af Amer) ml/min BUN/Creatinine Ratio (10-20) Glucose (70-99(Fasting)) mg/dl Calcium (8.5-10.1) mg/dl Total Bilirubin (0.2-1.0) mg/dl AST (13-39) U/L ALT (7-52) U/L Alkaline Phosphatase (34-104) U/L Troponin I (0-0.04) ng/ml B-Natriuretic Peptide (0-100) pg/ml Total Protein (6.0-8.3) gm/dl Albumin (3.4-5.0) gm/dl Globulin (2.5-4.0) gm/dl Albumin/Globulin Ratio (0.9-2) Procalcitonin (0-0.5) ng/ml Blood Type Cancelled O Positive Antibody Screen Cancelled POSITIVE A Administered Medications Discontinued Medications Albuterol (Albut/Ipratrop 3mg/0.5mg Neb 3 Ml Vial) 3 ml INH NOW STA Stop: 10/02/21 14:15 Last Admin: 10/02/21 14:46 Dose: 3 ml Documented by: [id number] Dexamethasone Sodium Phosphate (DexamethasonePf 10 Mg/Ml Vial) 6 mg IV NOW ONE Stop: 10/02/21 15:41 Last Admin: 10/02/21 15:56 Dose: 6 mg Documented by: [id number] Calcium Gluconate () 1,000 mg in 60 mls @ 240 mls/hr IV NOW STA Stop: 10/02/21 16:40 Last Infusion: 10/02/21 16:50 Dose: 0 mls/hr Documented by: [id number] Admin: 10/02/21 16:34 Dose: 240 mls/hr Documented by: [id number] Imaging Data Radiologist's Impression: Chest X-Ray 10/02/21 14:14 XR chest 1V portable CLINICAL HISTORY: Dyspnea TECHNIQUE: Single frontal radiograph of the chest was obtained. Comparison: Comparison is made to chest one view 07/19/2020 FINDINGS: No lines and tubes are seen. The cardiomediastinal silhouette is normal. Multifocal airspace opacities are seen most prominent in the bilateral lower lungs. No evidence of pleural effusion or pneumothorax. IMPRESSION: Multifocal airspace opacities may represent atelectasis, pneumonia, and/or asp iration. ACT 112: Negative or not required by law. Electronically signed by: Giovani Shay M.D. 10/02/2021 3:08 PM Abdomen/Pelvis CT 10/02/21 14:[address] WITHOUT CONTRAST CT DOSE: 1013.34 mGy.cm HISTORY: Low back pain. TECHNIQUE: Multiaxial CT images of the abdomen and pelvis were performed without contrast. A dose lowering technique was utilized adhering to the principles of ALARA. COMPARISON STUDY: None. FINDINGS: Patchy peripheral groundglass airspace opacities within the lung bases. This favors a mild viral pneumonia. No fractures within the visualized osseous structures. Multilevel severe disc space narrowing within the lumbar spine most pronounced at the L3-L4 level which also demonstrates moderate central canal narrowing. Mildly enlarged distal thoracic periaortic lymph nodes with the dominant lymph node measuring 1.9 x 1.3 cm. Calcified granuloma within the left lower lobe. Mild motion artifact. This results in suboptimal evaluation. Questionable mild inflammatory change adjacent to the nondistended gallbladder could be due to the motion artifact. The unenhanced liver, adrenal glands, and pancreas are unremarkable. No renal stones or hydronephrosis. Bilateral renal hypodense lesions are incompletely characters on this noncontrast study but favor cysts. Dominant hypodense lesion within the left kidney measures 1.5 cm. There are few punctate calcified granuloma seen within the spleen. No retroperitoneal lymphadenopathy. There is an ectatic abdominal aorta demonstrating moderate calcified plaque. Normal bladder. No pelvic free fluid or pelvic lymphadenopathy. Incidental note is made of a right perirectal varicosity. Suboptimal evaluation for bowel pathology due to the lack of intravenous and oral contrast. However, there is no definite bowel wall thickening or obstruction. Colonic diverticulosis. No evidence for acute diverticulitis. Normal appendix. IMPRESSION: 1. No definite bowel wall thickening or obstruction. 2. Colonic diverticulosis. No evidence for acute diverticulitis. 3. No renal stones. No hydronephrosis. 4. Multilevel degenerative changes within the lumbar spine most process of the L3-L4 levels demonstrate moderate to severe central canal narrowing. 5. Mild bibasilar airspace opacities consistent with a viral pneumonia. 6. Mild distal thoracic periaortic lymphadenopathy. This is nonspecific but could be due to the suspected pneumonia. 7. Questionable mild inflammatory change adjacent to the nondistended gallbla dder could be due to motion artifact. If there is right upper quadrant pain then consider follow-up ultrasound for further evaluation. ACT 112: Negative or not required by law. Electronically signed by: Sergio Cruz M.D. 10/02/2021 3:32 PM Discharge Plan Visit Data Chief Complaint: Shortness of Breath/Dyspnea Stated Complaint: SOB, KIDNEY PAIN, FATIGUE, ED Provider: Brennan Saba Discharge Problem: Hypoxemia, COPD (chronic obstructive pulmonary disease), Low back pain, Hypocalcemia, Pneumonia due to 2019 novel coronavirus Patient Disposition: Admitted As Inpatient Discharge Instructions Interventions: ED Discharge Assessment Last Done: 10/02/21 19:47
[2021-10-02] MEDS ORDERED: ALBUT/IPRATROP 3MG/0.5MG NEB 3 ML VIAL INH STA (14:14)
[2021-10-02 14:51] LABS: Base Excess VBG -2.1 mEq/L; HCO3 VBG 23 mmol/L; Oxygen Saturation VBG < 60.0 %; PCO2 VBG 39 mmHg (38-50); PO2 VBG 25 mmHg; pH VBG 7.39 (7.36-7.41)
[2021-10-02 14:56] LABS: INR 1.1 (0.9-1.1); Partial Thromboplastin Ratio 1.3; Partial Thromboplastin Time 35.3 Seconds (21.0-31.0); Prothrombin Time 10.8 Seconds (9.0-12.0)
[2021-10-02 15:04] LABS: Eosinophils # (auto) 0.03 K/uL (0-0.5); Eosinophils % (auto) 0.9 %; Hematocrit (blood only) 27.9 % (42-52); Hemoglobin 8.1 g/dL (14.0-18.0); Immature Granulocytes # (auto) 0.04 K/uL (0.00-0.02); Immature Granulocytes % (auto) 1.2 %; Lymphocytes # (auto) 1.06 K/uL (1.2-3.4); Lymphocytes % (auto) 32.2 %; Mean Corpuscular Hemoglobin 24.3 pg (25-34); Mean Corpuscular Volume 83.8 fL (80-100); Monocytes # (auto) 0.42 K/uL (0.11-0.59); Monocytes % (auto) 12.8 %; Neutrophils # (auto) 1.74 K/uL (1.4-6.5); Neutrophils % (auto) 52.9 %; Ovalocytes 1+; Platelet Count 52 K/uL (130-400); Platelet Estimate Decreased (Normal); RDW Coefficient of Variation 18.9 % (11.5-14.5); RDW Standard Deviation 57.2 fL (36.4-46.3); Red Blood Count 3.33 M/uL (4.7-6.1); Tear Drop Cells 1+; White Blood Count 3.29 K/uL (4.8-10.8)
[2021-10-02 15:09] LABS: Troponin I 0.03 ng/ml (0-0.04)
--- NOTE | 2021-10-02 15:09 | XRay Report ---
XR chest 1V portable CLINICAL HISTORY: Dyspnea TECHNIQUE: Single frontal radiograph of the chest was obtained. Comparison: Comparison is made to chest one view 07/19/2020 FINDINGS: No lines and tubes are seen. The cardiomediastinal silhouette is normal. Multifocal airspace opacitie s are seen most prominent in the bilateral lower lungs. No evidence of pleural effusion or pneumothor ax. IMPRESSION: Multifocal airspace opacities may represent atelectasis, pneumonia, and/or aspiration. ACT 112: Negative or not required by law. Electronically signed by: Giovani Shay M.D. 10/02/2021 3:08 PM
[2021-10-02 15:21] LABS: Albumin Level 3.2 gm/dl (3.4-5.0); BUN Creatinine Ratio 12.2 (10-20); Calcium 7.8 mg/dl (8.5-10.1); Creatinine Clr Calc Pharmacy 47.4 ml/min; Est GFR (African American) 50.8 ml/min; Est GFR (Non-African American) 43.8 ml/min; Globulin 3.2 gm/dl (2.5-4.0); Potassium 3.4 mmol/L (3.5-5.1); Total Protein 6.4 gm/dl (6.0-8.3)
[2021-10-02 15:34] LABS: Influenza A virus by PCR Negative (Neg); Influenza B virus by PCR Negative (Neg); RSV by PCR Negative (Neg)
--- NOTE | 2021-10-02 15:34 | CT Scan Report ---
ABDOMEN AND PELVIS CT WITHOUT CONTRAST CT DOSE: 1013.34 mGy.cm HISTORY: Low back pain. TECHNIQUE: Multiaxial CT images of the abdomen and pelvis were performed without contrast. A dose lo wering technique was utilized adhering to the principles of ALARA. COMPARISON STUDY: None. FINDINGS: Patchy peripheral groundglass airspace opacities within the lung bases. This favors a mild viral pneumonia. No fractures within the visualized osseous structures. Multilevel severe disc space narrowing within the lumbar spine most pronounced at the L3-L4 level which also demonstrates moderate central canal narrowing. Mildly enlarged distal thoracic periaortic lymph nodes with the dominant ly mph node measuring 1.9 x 1.3 cm. Calcified granuloma within the left lower lobe. Mild motion artifact . This results in suboptimal evaluation. Questionable mild inflammatory change adjacent to the nondis tended gallbladder could be due to the motion artifact. The unenhanced liver, adrenal glands, and adan creas are unremarkable. No renal stones or hydronephrosis. Bilateral renal hypodense lesions are inco mpletely characters on this noncontrast study but favor cysts. Dominant hypodense lesion within the l eft kidney measures 1.5 cm. There are few punctate calcified granuloma seen within the spleen. No ret roperitoneal lymphadenopathy. There is an ectatic abdominal aorta demonstrating moderate calcified pl aque. Normal bladder. No pelvic free fluid or pelvic lymphadenopathy. Incidental note is made of a ri ght perirectal varicosity. Suboptimal evaluation for bowel pathology due to the lack of intravenous a nd oral contrast. However, there is no definite bowel wall thickening or obstruction. Colonic diverti culosis. No evidence for acute diverticulitis. Normal appendix. IMPRESSION: 1. No definite bowel wall thickening or obstruction. 2. Colonic diverticulosis. No evidence for acute diverticulitis. 3. No renal stones. No hydronephrosis. 4. Multilevel degenerative changes within the lumbar spine most process of the L3-L4 levels demonstra te moderate to severe central canal narrowing. 5. Mild bibasilar airspace opacities consistent with a viral pneumonia. 6. Mild distal thoracic periaortic lymphadenopathy. This is nonspecific but could be due to the suspe cted pneumonia. 7. Questionable mild inflammatory change adjacent to the nondistended gallbladder could be due to mot ion artifact. If there is right upper quadrant pain then consider follow-up ultrasound for further ev aluation. ACT 112: Negative or not required by law. Electronically signed by: Sergio Cruz M.D. 10/02/2021 3:32 PM
[2021-10-02 15:36] LABS: SARS CoV2 RNA(COVID-19) InHosp POSITIVE (Negative)
[2021-10-02] MEDS ORDERED: dexAMETHasone**PF** 10 MG/ML VIAL IV ONE (15:40)
[2021-10-02] MEDS ORDERED: CALCIUM GLUCONATE 1,000 MG/60 ML BAG IV STA (16:26)
[2021-10-02 16:37] LABS: Giant Platelets 2+
--- NOTE | 2021-10-02 16:43 | Electrocardiogram Report ---
Test Reason : Blood Pressure : / mmHG Vent. Rate : 065 BPM Atrial Rate : 065 BPM P-R Int : 188 ms QRS Dur : 086 ms QT Int : 462 ms P-R-T Axes : 044 046 054 degrees QTc Int : 480 ms Normal sinus rhythm with sinus arrhythmia Diffuse Minor Nonspecific ST abnormality Abnormal ECG When compared with ECG of 19-JUL-2020 11:10, Nonspecific ST abnormality less pronounced Confirmed by Kendrick Sher ([id number]) on 10/02/2021 4:43:31 PM Referred By: REFERRED SELF Confirmed By:Kendrick Sher
--- NOTE | 2021-10-02 17:06 | History & Physical Report ---
Date of Service October 02, 2021 Assessment & Plan (1) Acute and chronic respiratory failure: Plan: Multifactorial. Patient has known COPD and diastolic CHF. Likely acute component secondary to COVID Treatment as noted below History of RIK, continue CPAP nightly (2) COVID: Plan: Start dexamethasone 6 mg IV daily Continue Trelegy if available pharmacy Secondary to renal insufficiency, patient is not a candidate for remdesivir or other COVID focused treatments Albuterol nebulizers as needed Continue O2 support Heparin for DVT prophylaxis (3) Anemia: Plan: This seems to be chronic and unchanged. Suspect this may be due to anemia of chronic disease, renal failure I will check iron studies, B12, folate (4) CKD (chronic kidney disease) stage 3, GFR 30-59 ml/min: Plan: Creatinine appears to be roughly at baseline at 1.47. BUN is 18. Continue to monitor on current medication including furosemide and lisinopril (5) Low back pain: Plan: Although this is a major concern to the patient, there was mention of previous back surgery many years ago. I suspect this is also chronic problem If this returns, could consider using a K pad or possibly Lidoderm patches Would avoid NSAIDs secondary to renal function. Would also avoid heavy narcotic usage Will ask PT/OT to evaluate (6) Hypertension: Plan: Continue lisinopril and metoprolol. Patient is also on furosemide 40 mg daily (7) Hyperlipidemia: Plan: Continue atorvastatin 80 mg daily History of Present Illness Chief Complaint: SOB Primary Care Provider: Letty Momin MD This is an 81-year-old male with Gustavo history of COPD, chronic respiratory failure on 2 L nasal cannula chronically, CKD stage III that presents today with shortness of breath. Patient is pleasant but difficult historian as he is very hard of hearing. He has a daughter at bedside that is able to give more history. She tells me that he has been having some issues over the past few weeks but these became much worse over the past 3-4 days. He admits that he is short of breath at all times but has been having worsening dyspnea on exertion with much less exercise tolerance. The daughter notes that he is typically up early as he is a former but lately has been sleeping much longer than previously. He is also developed a wet sounding cough. Patient does have a history of chronic low back pain but this apparently has been worse as well. Patient had significant low back pain proposed prior to my arrival to the room. He is concerned that there may be flank pain that would indicate a kidney issue. However, he was comfortable at the time of my evaluation. Imaging and laboratory work did not show any significant renal pathology and I did reassure the patient of this. Daughter tells me the patient is vaccinated for COVID but has not yet had a booster. However, multiple other contacts in the family occluding his have had COVID that are not vaccinated. Patient tested COVID positive here. Patient is now being admitted for acute on chronic respiratory failure secondary to COVID. Allergies Allergy/AdvReac Type Severity Reaction Status Date / Time No Known Allergies Allergy Verified 10/02/21 14:42 Home Medications Medication Instructions Recorded Confirmed Type CPAP Supplies #1 ea 02/29/20 08/29/21 Rx Oxygen Home #1 ea 03/01/20 08/29/21 Rx fluticasone propionate 50 1 spray INTRANASAL DAILY PRN 07/01/20 10/02/21 History mcg/actuation nasal spray,suspension (Allergy Relief (fluticasone)) CPAP Supplies #1 ea 12/29/20 08/29/21 Rx atorvastatin 80 mg tablet 80 mg PO QAM #90 tab 06/08/21 10/02/21 Rx furosemide 40 mg tablet (Lasix) 40 mg PO BID #180 tab 06/08/21 10/02/21 Rx metoprolol tartrate 25 mg tablet 25 mg PO BID #180 tab 06/08/21 10/02/21 Rx pantoprazole 40 mg tablet,delayed 40 mg PO BID #180 tab 06/08/21 10/02/21 Rx release lorazepam 0.5 mg tablet (Ativan) 0.5 mg PO BID PRN #45 tab 08/18/21 10/02/21 Rx Flutter Valve #1 ea 08/29/21 08/29/21 Rx albuterol sulfate 90 mcg/actuation 2 inh INH Q6H PRN #18 g 08/29/21 10/02/21 Rx aerosol inhaler (Ventolin HFA) fluticasone fur. 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 GERD (gastroesophageal reflux disease) Hyperlipidemia Hypertension On home oxygen therapy 2lpm via n/c PRN during the day Osteoarthritis Pneumonia hx - no problems currently Pulmonary nodule 9mm RUL initial ct 08/2019 Sensorineural hearing loss (SNHL) of left ear with restricted hearing of right ear Sensorineural hearing loss (SNHL) of right ear with restricted hearing of left ear Shortness of breath with exertion Sleep apnea CPAP with 2lpm via HS ST elevation myocardial infarction (STEMI) of inferior wall September 2018 Surgical History H/O heart artery stent x2 stents @ [facility] 10/2018. Dr Ahumada. History of cardiac cath History of colonoscopy History of esophagogastroduodenoscopy (EGD) History of lumbar discectomy History of palate surgery History of surgery [place] ?? Family History Mother Myocardial infarction Father Cancer Malignant Pancreatic Neoplasm Other Family history non-contributory Heart disease Hypertension No family history of adverse response to anesthesia No family history of bleeding disorder Social History Smoking Status: Former smoker Tobacco Type: Cigarettes Cigarettes Per Day: UP TO 100; Second Hand Exposure: No; Hx Alcohol Use: No Hx Substance Use: No Preferred Language: Latvian Communication Ability: Effective Bin Operator Required: No Beliefs That Will Affect Care: None marital status: Current Living Situation: Spouse Current Living Situation Comment: ranch house current occupational status: retired Feels Safe at Home: Yes Assistive Devices: Cane, CPAP, Glasses and Oxygen - at Night Review of Systems Constitutional: + fatigue, + malaise and + weakness; no fever, no chills, no weight loss and no weight gain Eyes: as per Subjective / HPI Respiratory: + cough, + dyspnea, + dyspnea on exertion and + sputum production; no chest congestion Cardiovascular: no chest pain, no orthopnea, no palpitations, no lightheadedness and no edema Gastrointestinal: no abdominal pain, no nausea, no vomiting, no constipation and no diarrhea/loose stools Musculoskeletal: no back pain, no neck pain, no joint pain, no stiffness and no myalgia Integumentary: no rash Neurologic: no gait abnormality, no unsteadiness, no falls and no generalized weakness Physical Exam Constitutional: cooperative (very hard of hearing); no acute distress Neck: trachea midline, no thyromegaly Respiratory: normal respiratory effort Auscultation: + diminished lung sounds; no crackles, no rales, no rhonchi and no wheezes Cardiovascular: Rate/Rhythm: regular rate and regular rhythm Heart Sounds: normal S1 and normal S2 Gastrointestinal (Abdomen): Inspection/Auscultation: abdomen normal to inspection Percussion/Palpation: abdomen soft; abdomen nontender, no guarding, abdomen not rigid and no hepatosplenomegaly Skin: no rashes, warm and dry Results & Data Results & Data ([facility]) Vital Signs (Past 12 Hours) Vital Signs Temp Pulse Pulse Resp BP BP Pulse Ox 10/02/21 16:55 68 18 169/57 H 92 10/02/21 14:38 93 10/02/21 14:05 65 18 151/70 H 92 10/02/21 13:59 92 10/02/21 13:58 32 H 83 L 10/02/21 13:40 37.0 C 66 18 143/73 H 97 Laboratory Results Laboratory Results WBC 3.29 K/uL (4.8-10.8) L 10/02/21 14:08 RBC 3.33 M/uL (4.7-6.1) L 10/02/21 14:08 Hgb 8.1 g/dL (14.0-18.0) L 10/02/21 14:08 Hct 27.9 % (42-52) L 10/02/21 14:08 MCV 83.8 fL (80-100) 10/02/21 14:08 MCH 24.3 pg (25-34) L 10/02/21 14:08 MCHC 29.0 g/dL (32-36) L 10/02/21 14:08 RDW Std Deviation 57.2 fL (36.4-46.3) H 10/02/21 14:08 RDW Coeff of Mario 18.9 % (11.5-14.5) H 10/02/21 14:08 Plt Count 52 K/uL (130-400) L 10/02/21 14:08 Immature Gran % (Auto) 1.2 % 10/02/21 14:08 Neut % (Auto) 52.9 % 10/02/21 14:08 Lymph % (Auto) 32.2 % 10/02/21 14:08 [place] % (Auto) 12.8 % 10/02/21 14:08 Eos % (Auto) 0.9 % 10/02/21 14:08 Baso % (Auto) 0.0 % 10/02/21 14:08 Neut # (Auto) 1.74 K/uL (1.4-6.5) 10/02/21 14:08 Lymph # (Auto) 1.06 K/uL (1.2-3.4) L 10/02/21 14:08 [place] # (Auto) 0.42 K/uL (0.11-0.59) 10/02/21 14:08 Eos # (Auto) 0.03 K/uL (0-0.5) 10/02/21 14:08 Baso # (Auto) 0.00 K/uL (0-0.2) 10/02/21 14:08 Immature Gran # (Auto) 0.04 K/uL (0.00-0.02) H 10/02/21 14:08 Platelet Estimate Decreased (Normal) L 10/02/21 14:08 Giant Platelets 2+ 10/02/21 14:08 Tear Drop Cells 1+ 10/02/21 14:08 Ovalocytes 1+ 10/02/21 14:08 PT 10.8 Seconds (9.0-12.0) 10/02/21 14:08 INR 1.1 (0.9-1.1) 10/02/21 14:08 APTT 35.3 Seconds (21.0-31.0) H 10/02/21 14:08 PTT Ratio 1.3 10/02/21 14:08 VBG pH 7.39 (7.36-7.41) 10/02/21 14:29 VBG pCO2 39 mmHg (38-50) 10/02/21 14:29 VBG pO2 25 mmHg 10/02/21 14:29 VBG HCO3 23 mmol/L 10/02/21 14:29 VBG O2 Saturation < 60.0 % 10/02/21 14:29 VBG Base Excess -2.1 mEq/L 10/02/21 14:29 Barometric Pressure 716.7 mm/Hg 10/02/21 14:29 Sodium 141 mmol/L (136-145) 10/02/21 14:08 Potassium 3.4 mmol/L (3.5-5.1) L 10/02/21 14:08 Chloride 110 mmol/L (98-107) H 10/02/21 14:08 Carbon Dioxide 23 mmol/L (21-32) 10/02/21 14:08 Anion Gap 8 (3-11) 10/02/21 14:08 BUN 18 mg/dl (6-23) 10/02/21 14:08 Creatinine 1.47 mg/dl (0.6-1.4) H 10/02/21 14:08 Est Cr Clr Drug Dosing 47.4 ml/min 10/02/21 14:08 Est GFR ( Amer) 50.8 ml/min 10/02/21 14:08 Est GFR (Non-Af Amer) 43.8 ml/min 10/02/21 14:08 BUN/Creatinine Ratio 12.2 (10-20) 10/02/21 14:08 Glucose 136 mg/dl (70-99(Fasting)) H 10/02/21 14:08 Calcium 7.8 mg/dl (8.5-10.1) L 10/02/21 14:08 Total Bilirubin 1.0 mg/dl (0.2-1.0) 10/02/21 14:08 AST 118 U/L (13-39) H 10/02/21 14:08 ALT 57 U/L (7-52) H 10/02/21 14:08 Alkaline Phosphatase 352 U/L (34-104) H 10/02/21 14:08 Troponin I 0.03 ng/ml (0-0.04) 10/02/21 14:08 B-Natriuretic Peptide 219 pg/ml (0-100) H 10/02/21 14:29 Total Protein 6.4 gm/dl (6.0-8.3) 10/02/21 14:08 Albumin 3.2 gm/dl (3.4-5.0) L 10/02/21 14:08 Globulin 3.2 gm/dl (2.5-4.0) 10/02/21 14:08 Albumin/Globulin Ratio 1.0 (0.9-2) 10/02/21 14:08 Procalcitonin 0.19 ng/ml (0-0.5) 10/02/21 14:08 POC Stool Occult Blood Negative (Negative) 10/02/21 Unknown SARS-CoV-2 (PCR) POSITIVE (Negative) A* 10/02/21 Unknown Influenza Type A (PCR) Negative (Neg) 10/02/21 Unknown Influenza Type B (PCR) Negative (Neg) 10/02/21 Unknown RSV (RT-PCR) Negative (Neg) 10/02/21 Unknown Blood Type Cancelled 10/02/21 15:28 Antibody Screen Cancelled 10/02/21 15:28 Impressions Chest X-Ray 10/02/21 14:14 XR chest 1V portable CLINICAL HISTORY: Dyspnea TECHNIQUE: Single frontal radiograph of the chest was obtained. Comparison: Comparison is made to chest one view 07/19/2020 FINDINGS: No lines and tubes are seen. The cardiomediastinal silhouette is normal. Multifocal airspace opacities are seen most prominent in the bilateral lower lungs. No evidence of pleural effusion or pneumothorax. IMPRESSION: Multifocal airspace opacities may represent atelectasis, pneumonia, and/or aspiration. ACT 112: Negative or not required by law. Electronically signed by: Giovani Shay M.D. 10/02/2021 3:08 PM Abdomen/Pelvis CT 10/02/21 14:[address] WITHOUT CONTRAST CT DOSE: 1013.34 mGy.cm HISTORY: Low back pain. TECHNIQUE: Multiaxial CT images of the abdomen and pelvis were performed without contrast. A dose lowering technique was utilized adhering to the principles of ALARA. COMPARISON STUDY: None. FINDINGS: Patchy peripheral groundglass airspace opacities within the lung bases. This favors a mild viral pneumonia. No fractures within the visualized osseous structures. Multilevel severe disc space narrowing within the lumbar spine most pronounced at the L3-L4 level which also demonstrates moderate central canal narrowing. Mildly enlarged distal thoracic periaortic lymph nodes with the dominant lymph node measuring 1.9 x 1.3 cm. Calcified granuloma within the left lower lobe. Mild motion artifact. This results in suboptimal evaluation. Questionable mild inflammatory change adjacent to the nondistended gallbladder could be due to the motion artifact. The unenhanced liver, adrenal glands, and pancreas are unremarkable. No renal stones or hydronephrosis. B ilateral renal hypodense lesions are incompletely characters on this noncontrast study but favor cysts. Dominant hypodense lesion within the left kidney measures 1.5 cm. There are few punctate calcified granuloma seen within the spleen. No retroperitoneal lymphadenopathy. There is an ectatic abdominal aorta demonstrating moderate calcified plaque. Normal bladder. No pelvic free fluid or pelvic lymphadenopathy. Incidental note is made of a right perirectal varicosity. Suboptimal evaluation for bowel pathology due to the lack of intravenous and oral contrast. However, there is no definite bowel wall thickening or obstruction. Colonic diverticulosis. No evidence for acute diverticulitis. Normal appendix. IMPRESSION: 1. No definite bowel wall thickening or obstruction. 2. Colonic diverticulosis. No evidence for acute diverticulitis. 3. No renal stones. No hydronephrosis. 4. Multilevel degenerative changes within the lumbar spine most process of the L3-L4 levels demonstrate moderate to severe central canal narrowing. 5. Mild bibasilar airspace opacities consistent with a viral pneumonia. 6. Mild distal thoracic periaortic lymphadenopathy. This is nonspecific but could be due to the suspected pneumonia. 7. Questionable mild inflammatory change adjacent to the nondistended gallbladder could be due to motion artifact. If there is right upper quadrant pain then consider follow-up ultrasound for further evaluation. ACT 112: Negative or not required by law. Electronically signed by: Sergio Cruz M.D. 10/02/2021 3:32 PM PG Care Time/CCT Total # of Minutes Spent Total Time Spent with Patient: Total time spent is greater than 50% in coordination of care (as documented) at patient's floor/unit and/or counseling patient: Coding Level of Care Code 70206 Initial Inpt Care Lvl 3 Diagnoses Acute and chronic respiratory failure J96.20 Anemia D64.9 COVID U07.1 CKD (chronic kidney disease) stage 3, GFR 30-59 ml/min N18.3 Low back pain M54.50 Hypertension I10 Hypertension type: unspecified Hyperlipidemia E78.5 (1) Hypertension Hypertension type: unspecified Qualified Code(s): I10 - Essential (primary) hypertension
[2021-10-02] MEDS ORDERED: ALBUTEROL HFA 8 GM INHALER INH PRN (21:28)
[2021-10-02] MEDS ORDERED: ACETAMINOPHEN 325 MG TAB PO PRN (21:28)
[2021-10-02] MEDS ORDERED: FLUTICASONE PROPIONATE NA SPR 16 GM BTL NAE PRN (21:28)
[2021-10-02] MEDS ORDERED: LORazepam 0.5 MG TAB PO PRN (21:28)
[2021-10-02] MEDS ORDERED: ONDANSETRON INJ 2 MG/ML 2 ML VIAL IV PRN (21:28)
[2021-10-02] MEDS ORDERED: HEPARIN SOD 5,000 UNIT/0.5 ML VIAL SQ SCH (22:00)
[2021-10-02] MEDS ORDERED: ALBUTEROL 0.083% NEBU SOLN 3 ML VIAL NEB STA (22:28)
[2021-10-02] MEDS: FUROSEMIDE 40 MG TAB PO SCH (22:38)
[2021-10-02] MEDS: PANTOprazole 40 MG TAB PO SCH (22:39)
[2021-10-02] MEDS: SERTRALINE HCL 50 MG TABLET PO SCH (22:39)
[2021-10-02] MEDS: lisinopril 5 MG TAB PO SCH (22:39)
[2021-10-02] MEDS: METOPROLOL TARTRATE 25 MG TAB PO SCH (22:39)
[2021-10-03 05:57] LABS: Hematocrit (blood only) 30.1 % (42-52); Hemoglobin 8.7 g/dL (14.0-18.0); Mean Corpuscular Hemoglobin 24.2 pg (25-34); Mean Corpuscular Hgb Conc 28.9 g/dL (32-36); Mean Corpuscular Volume 83.8 fL (80-100); Platelet Count 46 K/uL (130-400); RDW Coefficient of Variation 18.8 % (11.5-14.5); RDW Standard Deviation 57.2 fL (36.4-46.3); Red Blood Count 3.59 M/uL (4.7-6.1); White Blood Count 3.16 K/uL (4.8-10.8)
[2021-10-03 05:58] LABS: BUN Creatinine Ratio 13.8 (10-20); Calcium 7.9 mg/dl (8.5-10.1); Chol HDL Ratio 4.5; Creatinine Clr Calc Pharmacy 53.6 ml/min; Est GFR (African American) 58.9 ml/min; Est GFR (Non-African American) 50.8 ml/min; Potassium 3.9 mmol/L (3.5-5.1)
[2021-10-03 06:03] LABS: Echinocytes 1+; Giant Platelets 1+; Hypochromasia Present; Immature Granulocytes # (auto) 0.05 K/uL (0.00-0.02); Immature Granulocytes % (auto) 1.6 %; Lymphocytes # (auto) 0.57 K/uL (1.2-3.4); Monocytes # (auto) 0.35 K/uL (0.11-0.59); Monocytes % (auto) 11.1 %; Neutrophils # (auto) 2.19 K/uL (1.4-6.5); Neutrophils % (auto) 69.3 %; Platelet Estimate Decreased (Normal)
[2021-10-03 06:23] LABS: Folate (Folic Acid) 8.42 ng/ml (>5.38)
[2021-10-03] MEDS ORDERED: NON-FORMULARY MEDICATION (Fluticasone-Umeclidin-Vilanter [Trelegy Ellipta] 100-62.5-25 mcg INH SCH (09:00)
[2021-10-03] MEDS: PANTOprazole 40 MG TAB PO SCH ×2 (09:43→20:45)
[2021-10-03] MEDS: ATORVASTATIN 40 MG TAB PO SCH (09:43)
[2021-10-03] MEDS: dexAMETHasone 6 MG in SYRINGE 0 ML IV SCH (09:43)
[2021-10-03] MEDS: METOPROLOL TARTRATE 25 MG TAB PO SCH ×2 (09:43→20:45)
[2021-10-03] MEDS: FUROSEMIDE 40 MG TAB PO SCH ×2 (09:43→17:22)
[2021-10-03] MEDS: CLOPIDOGREL BISULFATE 75 MG TAB PO SCH (09:43)
[2021-10-03] MEDS: FLUTICASONE FUROATE 100MCG 14 PUFFS/INHALER INH SCH (09:44)
[2021-10-03] MEDS: UMECLIDINIUM/VILANTEROL 62.5/25MCG 7 PUFFS/INHALER INH SCH (09:44)
--- NOTE | 2021-10-03 13:15 | Hospitalist Progress Note ---
Date of Service October 03, 2021 Assessment & Plan (1) Pneumonia due to 2019 novel coronavirus: Plan: CXR and CT show multifocal airspace opacities consistent with viral pneumonia he is on 3-4L at rest, no distress, minimal cough treat with dexamethasone 6mg IV daily eating and drinking well check CRP in morning he is too far along for Remdesivir provide DVT prophylaxis (2) Acute and chronic respiratory failure: Plan: Multifactorial. Patient has known COPD and diastolic CHF. Likely acute component secondary to COVID he normally only wears oxygen at night currently on 3-4L discussed that he could get worse, too soon to send him home, he understands (3) COVID: Plan: continue Dexamethasone Secondary to renal insufficiency, patient is not a candidate for remdesivir or other COVID focused treatments Albuterol nebulizers as needed Continue O2 support Heparin for DVT prophylaxis (4) Anemia: Plan: This seems to be chronic and unchanged. Suspect this may be due to anemia of chronic disease, renal failure I will check iron studies, B12, folate (5) CKD (chronic kidney disease) stage 3, GFR 30-59 ml/min: Plan: Creatinine appears to be roughly at baseline at 1.47. BUN is 18. Continue to monitor on current medication including furosemide and lisinopril (6) Low back pain: Plan: Although this is a major concern to the patient, there was mention of previous back surgery many years ago. I suspect this is also chronic problem If this returns, could consider using a K pad or possibly Lidoderm patches Would avoid NSAIDs secondary to renal function. Would also avoid heavy narcotic usage Will ask PT/OT to evaluate (7) Hypertension: Plan: Continue lisinopril and metoprolol. 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 and does not use the oxygen he is eating okay, no fever, has some general weakness his low back pain is controlled discussed with him and his daughter that he is on too much oxygen, I have seen people get worse quickly with COVID will assess him again tomorrow Review of Systems Review of Systems: All systems reviewed & are unremarkable except as noted in Subjective Constitutional: no fever, no fatigue and no weakness Respiratory: + dyspnea on exertion; no cough and no dyspnea Cardiovascular: no chest pain Gastrointestinal: no abdominal pain, no nausea, no vomiting, no constipation and no diarrhea/loose stools Musculoskeletal: + back pain Physical Exam Physical Exam: General: well developed, obese, elderly male, no acute distress , comfortable Neck: supple, trachea midline, normal thyroid Lungs: clear to auscultation bilaterally, normal respiratory effort, no accessory muscle use, no distress Heart: regular S1 and S2, no murmur, peripheral pulses normal, capillary refill normal, no edema Abdomen: soft, NT, ND, + BS, no hepatomegaly, normal to percussion Extremities: normal in appearance, no cyanosis, no petechiae, strength is 5/5 bilaterally Neuro: awake, cooperative, moves all extremities, no focal motor deficits, CN II-XII intact, sensation in extremities intact, normal speech Skin: warm, dry, no rash, normal turgor Psych: Awake, alert oriented x 3, euthymic affect Results & Data Results & Data ([facility]) Vital Signs (Past 12 Hours) Vital Signs Pulse Pulse Pulse Resp BP Pulse Ox 10/03/21 10:24 92 10/03/21 08:00 72 20 178/84 H 94 10/03/21 06:05 59 L 18 163/72 H 95 10/03/21 03:30 63 19 96 PG Care Time/CCT Total # of Minutes Spent Total Time Spent with Patient: Total time spent is greater than 50% in coordination of care (as documented) at patient's floor/unit and/or counseling patient: Coding Level of Care Code 41358 Subseq Hosp Care Lvl 2 Diagnoses Acute and chronic respiratory failure J96.20 COVID U07.1 Anemia D64.9 CKD (chronic kidney disease) stage 3, GFR 30-59 ml/min N18.3 Low back pain M54.50 Back pain laterality: bilateral Chronicity: acute Sciatica presence: without sciatica Hypertension I10 Hypertension type: unspecified Hyperlipidemia E78.5 Pneumonia due to 2019 novel coronavirus U07.1; J12.82 (1) Low back pain Back pain laterality: bilateral Chronicity: acute Sciatica presence: without sciatica Qualified Code(s): M54.50 - Low back pain, unspecified (2) Hypertension Hypertension type: unspecified Qualified Code(s): I10 - Essential (primary) hypertension
[2021-10-03 18:14] LABS: Appearance Urine Clear (Clear); Bacteria Urine Automated Negative (Negative); Bilirubin Urine Negative (Negative); Blood Urine Negative (Negative); Color Urine Yellow; Epithelial Cell Urine Auto 20-30 /lpf (0-5); Glucose Urine UA Negative (Negative); Ketones Urine Negative (Negative); Leukocyte Esterase Urine Negative (Negative); Nitrite Urine Negative (Negative); Protein Urine 1+ (Negative); RBC Urine Automated 0-4 /hpf (0-4); Specific Gravity Urine 1.013 (1.000-1.030); Urobilinogen Urine Negative (Negative)
[2021-10-03] MEDS: SERTRALINE HCL 50 MG TABLET PO SCH (20:44)
[2021-10-03] MEDS: lisinopril 5 MG TAB PO SCH (20:45)
[2021-10-04 06:11] LABS: Mean Corpuscular Hgb Conc 29.2 g/dL (32-36)
[2021-10-04 06:45] LABS: Albumin Level 3.1 gm/dl (3.4-5.0); BUN Creatinine Ratio 21.7 (10-20); Bilirubin,Total 0.8 mg/dl (0.2-1.0); C Reactive Protein 2.26 mg/dl (0-0.5); Calcium 7.8 mg/dl (8.5-10.1); Est GFR (African American) 59.4 ml/min; Est GFR (Non-African American) 51.3 ml/min; Potassium 3.8 mmol/L (3.5-5.1); Total Protein 6.1 gm/dl (6.0-8.3)
[2021-10-04 06:52] LABS: Hematocrit (blood only) 27.7 % (42-52); Hemoglobin 8.1 g/dL (14.0-18.0); Mean Corpuscular Hemoglobin 24.2 pg (25-34); Mean Corpuscular Volume 82.7 fL (80-100); RDW Coefficient of Variation 18.8 % (11.5-14.5); RDW Standard Deviation 56.8 fL (36.4-46.3); Red Blood Count 3.35 M/uL (4.7-6.1); White Blood Count 6.75 K/uL (4.8-10.8)
[2021-10-04 06:53] LABS: Platelet Count 47 K/uL (130-400); Platelet Estimate Decreased (Normal)
[2021-10-04] MEDS: PANTOprazole 40 MG TAB PO SCH (08:07)
[2021-10-04] MEDS: METOPROLOL TARTRATE 25 MG TAB PO SCH (08:07)
[2021-10-04] MEDS: FLUTICASONE FUROATE 100MCG 14 PUFFS/INHALER INH SCH (08:07)
[2021-10-04] MEDS: UMECLIDINIUM/VILANTEROL 62.5/25MCG 7 PUFFS/INHALER INH SCH (08:07)
[2021-10-04] MEDS: CLOPIDOGREL BISULFATE 75 MG TAB PO SCH (08:08)
[2021-10-04] MEDS: FUROSEMIDE 40 MG TAB PO SCH (08:08)
[2021-10-04] MEDS: ATORVASTATIN 40 MG TAB PO SCH (08:08)
[2021-10-04] MEDS ORDERED: PNEUMOCOCCAL Polysaccharide Vaccine 25mcg/0.5mL vial/Syr IM ONE (09:00)
[2021-10-04] MEDS: dexAMETHasone 6 MG in SYRINGE 0 ML IV SCH (09:52)
--- NOTE | 2021-10-04 14:50 | Discharge Summary ---
Date of Service October 04, 2021 Admission HPI Per Admitting Provider This is an 81-year-old male with Gustavo history of COPD, chronic respiratory failure on 2 L nasal cannula chronically, CKD stage III that presents today with shortness of breath. Patient is pleasant but difficult historian as he is very hard of hearing. He has a daughter at bedside that is able to give more history. She tells me that he has been having some issues over the past few weeks but these became much worse over the past 3-4 days. He admits that he is short of breath at all times but has been having worsening dyspnea on exertion with much less exercise tolerance. The daughter notes that he is typically up early as he is a former but lately has been sleeping much longer than previously. He is also developed a wet sounding cough. Patient does have a history of chronic low back pain but this apparently has been worse as well. Patient had significant low back pain proposed prior to my arrival to the room. He is concerned that there may be flank pain that would indicate a kidney issue. However, he was comfortable at the time of my evaluation. Imaging and laboratory work did not show any significant renal pathology and I did reassure the patient of this. Daughter tells me the patient is vaccinated for COVID but has not yet had a booster. However, multiple other contacts in the family occluding his have had COVID that are not vaccinated. Patient tested COVID positive here. Patient is now being admitted for acute on chronic respiratory failure secondary to COVID. Principal Diagnosis COVID 19 pneumonia Acute on chronic hypoxic respiratory failure Discharge Exam General: well developed, obese, elderly male, no acute distress, comfortable Neck: supple, trachea midline, normal thyroid Lungs: clear to auscultation bilaterally, normal respiratory effort, no accessory muscle use, no distress Heart: regular S1 and S2, no murmur, peripheral pulses normal, capillary refill normal, no edema Abdomen: soft, NT, ND, + BS, no hepatomegaly, normal to percussion Extremities: normal in appearance, no cyanosis, no petechiae, strength is 5/5 bilaterally Neuro: awake, cooperative, moves all extremities, no focal motor deficits, CN II-XII intact, sensation in extremities intact, normal speech Skin: warm, dry, no rash, normal turgor Psych: Awake, alert oriented x 3, euthymic affect Discharge Data Allergies Allergy/AdvReac Type Severity Reaction Status Date / Time No Known Allergies Allergy Verified 10/02/21 14:42 Consultations 10/02/21 15:58 ED Decision to Admit Stat Ordered Studies 10/02/21 14:16 CT abd pelvis wo con Stat Hospital Course (1) Pneumonia due to 2019 novel coronavirus: CXR and CT show multifocal airspace opacities consistent with viral pneumonia he is on 2L at rest, he needed 4L on exertion with 2 step testing he feels great, says he feels close to normal reviewing outpatient scripts, he is actually prescribed 2L at rest and 3L on exertion due to his COPD treat with dexamethasone 6mg IV daily change to 6mg PO daily for 7 more days on discharge eating and drinking well CRP is only 2.2 which is reassuring discharge to home with home oxygen follow up with PCP his daughter will be taking care of him (2) Acute and chronic respiratory failure: Multifactorial. Patient has known COPD and diastolic CHF. Likely acute component secondary to COVID he normally only wears oxygen at night, however, he is prescribed 2L continuous and 3L on exertion currently on 2L at rest and feels great, he needed 4L on exertion on 2 step testing sent script to [facility] (3) COVID: continue Dexamethasone for 7 more days on discharge Secondary to renal insufficiency, patient is not a candidate for remdesivir or other COVID focused treatments his platelets are 47K but are stable, likely due to COVID he takes Plavix, will continue this however, will recommend against giving Xarelto due to thrombocytopenia and being on Plavix PCP can repeat CBC next week (4) Thrombocytopenia: platelets were 52k on admission, then 46k and today 47k likely from acute viral illness hold on Xarelto on discharge due to thrombocytopenia recommend repeat CBC in a week if platelets are normal could consider Xarelto 10mg daily for 3 weeks to prevent DVT (5) Anemia: This seems to be chronic and unchanged. Suspect this may be due to anemia of chronic disease, renal failure (6) CKD (chronic kidney disease) stage 3, GFR 30-59 ml/min: Creatinine is at baseline (7) Low back pain: Although this is a major concern to the patient, there was mention of previous back surgery many years ago. I suspect this is also chronic problem If this returns, could consider using a K pad or possibly Lidoderm patches Would avoid NSAIDs secondary to renal function. Would also avoid heavy narcotic usage Will ask PT/OT to evaluate (8) Hypertension: Continue lisinopril and metoprolol. Patient is also on furosemide 40 mg BID (9) Hyperlipidemia: Continue atorvastatin 80 mg daily Total Time Total Time Spent Total Time Spent (In Minutes): 35 Discharge Plan Discharge Items Patient Disposition: Home - Self-Care Reason For Visit: COVID Discharge Diagnosis: COVID pneumonia Condition on Discharge: Good Goals: complete course of dexamethasone stay well rested, well nourished Activity: Resume your previous activity Weightbearing: Full weightbearing Non-emergency contact: Primary Care Provider Call non-emergency contact if: you have any medication questions and your symptoms worsen Follow-up/Referrals: Letty Momin MD [Primary Care Provider] - (one week) Diet: Heart Healthy Addtl Attending Provider Instructions: Medications: - DEXAMETHASONE: steroid to treat inflammation associated with COVID pneumonia, take 6mg daily for 7 more days COVID 19 pneumonia, acute on chronic hypoxia you need 2L at rest at all times and 4L on exertion continue to treat with Dexamethasone stay well rested the next week, stay well nourished and well hydrated please monitor oxygen levels, return to the hospital if you oxygen saturations are < 88% on 4L at rest Pending Studies at Discharge: No Stand-Alone Forms: My [employer], Smoking Cessation Medications and DC Order Prescriptions: New dexamethasone 4 mg tablet 6 mg PO DAILY 7 Days Qty: 11 RF: 0 Continued (DME) Oxygen Home Liters Per Minute See Rx Instructions .ROUTE .MEDSUPPLY Qty: 1 RF: 0 pantoprazole 40 mg tablet,delayed release (DR/EC) 40 mg PO BID Qty: 180 RF: 1 atorvastatin 80 mg tablet 80 mg PO QAM Qty: 90 RF: 1 furosemide [Lasix] 40 mg tablet 40 mg PO BID Qty: 180 RF: 3 metoprolol tartrate 25 mg tablet 25 mg PO BID Qty: 180 RF: 3 lorazepam [Ativan] 0.5 mg tablet 0.5 mg PO BID PRN (Reason: Anxiety) Qty: 45 RF: 0 clopidogrel 75 mg tablet 75 mg PO QAM Qty: 90 RF: 3 lisinopril 5 mg tablet 5 mg PO HS Qty: 90 RF: 1 sertraline 25 mg tablet 25 mg PO HS Qty: 90 RF: 1 (DME) CPAP Supplies Misc See Rx Instructions .MEDSUPPLY Qty: 1 RF: 0 (DME) CPAP Supplies Misc See Rx Instructions .ROUTE .MEDSUPPLY Qty: 1 RF: 0 albuterol sulfate [Ventolin HFA] 90 mcg/actuation HFA aerosol inhaler 2 inh INH Q6H PRN (Reason: Shortness Of Breath) Qty: 18 RF: 3 Trelegy Ellipta 100-62.5-25 mcg blister with device 1 inh inhalation QAM Qty: 3 RF: 1 (DME) Flutter Valve Device See Rx Instructions .MEDSUPPLY Qty: 1 RF: 0 fluticasone propionate [Allergy Relief (fluticasone)] 50 mcg/actuation spray,suspension 1 spray intranasal DAILY PRN (Reason: Nasal Congestion) RF: 0 Discharge Orders: Discharge Order (Routine); Ordered 10/04/21 Ordered By: Giovani Booth Admission Data Admit Date/Time: 10/02/21 17:16 Attending Provider: Giovani Booth Admit Provider: Mao Granados Primary Care Provider: Letty Momin Other Providers: Mao Granados Coding Level of Care Code D/C DAY MANAGEMENT >30 MINS Diagnoses Pneumonia due to 2019 novel coronavirus U07.1; J12.82 Acute and chronic respiratory failure J96.20 COVID U07.1 Anemia D64.9 CKD (chronic kidney disease) stage 3, GFR 30-59 ml/min N18.3 Low back pain M54.50 Back pain laterality: bilateral Chronicity: acute Sciatica presence: without sciatica Hypertension I10 Hypertension type: unspecified Hyperlipidemia E78.5 Thrombocytopenia D69.6
== END 2021-10-04 17:10 | disposition home or self-care (01) | DRG 177 ==
LOC: ED 13:35 → EDINP 17:16 → SUATTDRO 17:16 → EDINP 19:47 → 2W 10-03 14:59